=== PATIENT | male | born 1970 | race African-American/Black ===

== ENCOUNTER 2018-10-17 06:05 | Inpatient (IN) | payer MEDICAID ==
[2018-10-17] VITALS (56 sets, daily range): BP systolic 80–187; BP diastolic 43–103
[~2018-10-17] VITALS: Ht 167.6 cm; Wt 98.4 kg
[2018-10-17] MEDS ORDERED: SODIUM CHLORIDE 0.9% 1000ML BAG (SEPSIS BOLUS) IV ONE (06:30)
[2018-10-17 07:18] LABS: BASOPHILS % 0.5 % (0.0-2.0); EOSINOPHILS % 0.4 % (0.0-5.0); HEMATOCRIT. 23.1 % (42.0-52.0); HEMOGLOBIN. 7.9 g/dL (14.0-18.0); LYMPHOCYTES % 18.6 % (20.0-50.0); MEAN CORPUSCULAR HEMOGLOBIN 34.3 pg (28.0-32.0); MEAN CORPUSCULAR VOLUME 100.6 fL (80.0-94.0); MEAN PLATELET VOLUME 9.6 fl (7.4-10.4); MONOCYTES % 11.1 % (2.0-8.0); NEUTROPHILS % 69.4 % (40.0-76.0); PLATELET 89 x1000/uL (130-400); RED CELL DISTRIBUTION WIDTH 15.7 % (11.6-14.6)
[2018-10-17 07:23] LABS: CHLORIDE 115 mEq/L (98-107)
[2018-10-17 07:26] LABS: INR 1.6; PROTHROMBIN TIME 16.1 sec (9.6-11.0)
[2018-10-17 07:27] LABS: ETHANOL BLOOD < 10 mg/dL
[2018-10-17] MEDS ORDERED: LACTULOSE 20G/30ML UDC PO ONE (08:00)
[2018-10-17] MEDS ORDERED: OCTREOTIDE ACETATE 50 MCG/ML 1ML IV STA (08:40)
[2018-10-17] MEDS ORDERED: SODIUM CHLORIDE 0.9% 10ML VIAL ONE (09:00)
[2018-10-17] MEDS ORDERED: ETOMIDATE 2MG/ML 10ML VIAL IV ONE (09:00)
[2018-10-17] MEDS ORDERED: VECURONIUM BROMIDE 10 MG/VIAL IV ONE (09:00)
[2018-10-17 09:38] LABS: CLARITY URINE CLEAR (CLEAR); COLOR URINE YELLOW (YELLOW); KETONES URINE TRACE (NEGATIVE); LEUKOCYTE ESTERASE URINE NEGATIVE (NEGATIVE); NITRITE URINE NEGATIVE (NEGATIVE); OCCULT BLOOD URINE NEGATIVE (NEGATIVE); PROTEIN URINE NEGATIVE (NEGATIVE); SPECIFIC GRAVITY URINE 1.023 (1.005-1.030)
[2018-10-17] MEDS ORDERED: OCTREOTIDE 50 MCG in SODIUM CHLORIDE 0.9% 100 ML IV STA (09:53)
[2018-10-17] MEDS ORDERED: MORPHINE SULFATE 2 MG/ML CPJ (NOT FOR IM USE) IV PRN (11:30)
[2018-10-17] MEDS ORDERED: ONDANSETRON HCL 4MG/2ML INJ IV PRN (11:30)
[2018-10-17 11:36] LABS: BG BASE EXCESS -7.6 mmol/L (-2.0-2.0); BG CARBOXYHEMOGLOBIN 0.2 % (0.5-1.5); BG DEOXYHEMOGLOBIN 0.6 % (0.0-5.0); BG FRACTION INSPIRED OXYGEN 100; BG HCO3 ACT 17.8 mmol/L (22.0-26.0); BG METHEMOGLOBIN 0.2 % (0.0-1.5); BG OXYGEN SATURATION 99.4 % (92.0-98.5); BG PCO2 35.4 mmHg (35.0-45.0); BG PH 7.319 (7.350-7.450); BG PO2 315.8 mmHg (75.0-100.0); BG SAMPLE SITE RIGHT RADIAL; BG TIDAL VOLUME(mL) 500 mL; BG TOTAL HEMOGLOBIN 8.8 g/dL (12.0-18.0); BG VENT MODE VENT - A/C; BG VENT RATE 18 set
[2018-10-17] MEDS: MIDAZOLAM HCL 50 MG in DEXTROSE 5% WATER 40 ML IV PRN ×3 (11:40→20:57)
[2018-10-17] MEDS: FENTANYL CITRATE/PF 500 MCG in SODIUM CHLORIDE 0.9% 40 ML IV PRN ×2 (11:41→15:36)
[2018-10-17] MEDS: OCTREOTIDE 1000MCG in SODIUM CHLORIDE 0.9% 100ML IV PRN ×2 (11:41→12:33)
[2018-10-17] MEDS ORDERED: DIPHENHYDRAMINE 50MG/ML VIAL ONE (11:45)
[2018-10-17] MEDS ORDERED: MIDAZOLAM HCL 5 MG/5 ML VIAL ONE (11:46)
[2018-10-17] MEDS ORDERED: FENTANYL CITRATE/PF 50MCG/ML 2ML VIAL ONE (11:46)
[2018-10-17] MEDS ORDERED: LIDOCAINE HCL 1% 20ML VIAL (Pyxis) INJ ONE (12:42)
[2018-10-17 13:39] LABS: BASOPHILS % 0.4 % (0.0-2.0); EOSINOPHILS % 0.4 % (0.0-5.0); LYMPHOCYTES % 20.6 % (20.0-50.0); MEAN CORPUSCULAR VOLUME 100.8 fL (80.0-94.0); MEAN PLATELET VOLUME 10.1 fl (7.4-10.4); NEUTROPHILS % 67.6 % (40.0-76.0); PLATELET 99 x1000/uL (130-400); RED BLOOD CELL COUNT 1.91 mill/uL (4.7-6.1)
[2018-10-17 13:39] LABS: *BARBITURATES SCREEN URINE NEGATIVE (NEGATIVE); *BENZODIAZEPINES SCREEN URINE NEGATIVE (NEGATIVE); *COCAINE SCREEN URINE NEGATIVE (NEGATIVE)
[2018-10-17 13:40] LABS: *AMPHETAMINES SCREEN URINE NEGATIVE (NEGATIVE); CANNABINOID URINE SCREEN NEGATIVE (NEGATIVE); METHADONE URINE SCREEN NEGATIVE (NEGATIVE); OPIATES URINE SCREEN NEGATIVE (NEGATIVE); PHENCYCLIDINE URINE SCREEN NEGATIVE (NEGATIVE)
[2018-10-17 13:50] LABS: HEMATOCRIT. 19.3 % (42.0-52.0); HEMOGLOBIN. 6.5 g/dL (14.0-18.0)
[2018-10-17] MEDS: CEFEPIME 1,000 MG in DEXTROSE 5% WATER 50 ML IV SCH ×2 (16:09→23:22)
[2018-10-17] MEDS: PANTOPRAZOLE SODIUM 40 MG/VIAL IV SCH ×2 (16:09→20:46)
[2018-10-17] MEDS: DEXT 5%/0.45% NACL 1000ML 1,000 ML IV SCH (16:10)
[2018-10-17] MEDS: METRONIDAZOLE 500 MG PREMIX 100 ML IV SCH ×2 (17:41→19:57)
[2018-10-17 23:04] LABS: HEMATOCRIT 33.5 % (42.0-52.0); HEMOGLOBIN 11.5 g/dL (14.0-18.0)
[2018-10-18] VITALS (60 sets, daily range): BP systolic 93–137; BP diastolic 56–79
[2018-10-18] MEDS: DEXT 5%/0.45% NACL 1000ML 1,000 ML IV SCH ×2 (00:42→14:30)
[2018-10-18] MEDS: OCTREOTIDE 1,000 MCG in SODIUM CHLORIDE 0.9% 98 ML IV SCH (02:01)
[2018-10-18] MEDS: FENTANYL CITRATE/PF 500 MCG in SODIUM CHLORIDE 0.9% 40 ML IV PRN (02:03)
[2018-10-18] MEDS: METRONIDAZOLE 500 MG PREMIX 100 ML IV SCH ×3 (04:11→20:20)
[2018-10-18 05:49] LABS: HEMATOCRIT 31.7 % (42.0-52.0); HEMOGLOBIN 11.1 g/dL (14.0-18.0)
[2018-10-18 05:59] LABS: CHLORIDE 121 mEq/L (98-107)
[2018-10-18 08:26] LABS: BG BASE EXCESS -7.3 mmol/L (-2.0-2.0); BG FRACTION INSPIRED OXYGEN 40; BG HCO3 ACT 16.8 mmol/L (22.0-26.0); BG METHEMOGLOBIN 0.2 % (0.0-1.5); BG OXYHEMOGLOBIN 95.8 % (94.0-97.0); BG PCO2 29.2 mmHg (35.0-45.0); BG PH 7.377 (7.350-7.450); BG PO2 88.9 mmHg (75.0-100.0); BG SAMPLE SITE RIGHT BRACHIAL; BG TIDAL VOLUME(mL) 500 mL; BG TOTAL HEMOGLOBIN 10.8 g/dL (12.0-18.0); BG VENT MODE VENT - A/C; BG VENT RATE 20 set
[2018-10-18] MEDS: MIDAZOLAM HCL 50 MG in DEXTROSE 5% WATER 40 ML IV PRN (08:52)
[2018-10-18] MEDS: PANTOPRAZOLE SODIUM 40 MG/VIAL IV SCH ×2 (08:52→21:14)
[2018-10-18] MEDS: LACTULOSE 300 ML in WATER FOR IRRIGATION,STERILE 700 ML IR SCH (10:31)
[2018-10-18] MEDS: CEFEPIME 1,000 MG in DEXTROSE 5% WATER 50 ML IV SCH (11:42)
[2018-10-18] MEDS: THIAMINE HCL 100 MG in SODIUM CHLORIDE 0.9% 50 ML IV SCH (12:22)
[2018-10-18 23:02] LABS: HEMATOCRIT 27.9 % (42.0-52.0); HEMOGLOBIN 9.9 g/dL (14.0-18.0)
[2018-10-19] VITALS (87 sets, daily range): BP systolic 113–160; BP diastolic 49–91
[2018-10-19] MEDS: CEFEPIME 1,000 MG in DEXTROSE 5% WATER 50 ML IV SCH ×3 (00:04→23:06)
[2018-10-19] MEDS: OCTREOTIDE 1,000 MCG in SODIUM CHLORIDE 0.9% 98 ML IV SCH ×2 (01:11→20:56)
[2018-10-19] MEDS: METRONIDAZOLE 500 MG PREMIX 100 ML IV SCH ×3 (03:56→20:55)
[2018-10-19 05:04] LABS: HEMOGLOBIN 9.6 g/dL (14.0-18.0)
[2018-10-19 05:06] LABS: CHLORIDE 121 mEq/L (98-107)
[2018-10-19 08:20] LABS: BG BASE EXCESS -5.1 mmol/L (-2.0-2.0); BG CARBOXYHEMOGLOBIN 0.3 % (0.5-1.5); BG DEOXYHEMOGLOBIN 3.2 % (0.0-5.0); BG FRACTION INSPIRED OXYGEN 40; BG HCO3 ACT 18.7 mmol/L (22.0-26.0); BG METHEMOGLOBIN 0.3 % (0.0-1.5); BG OXYGEN SATURATION 96.8 % (92.0-98.5); BG OXYHEMOGLOBIN 96.2 % (94.0-97.0); BG PCO2 30.1 mmHg (35.0-45.0); BG PO2 94.9 mmHg (75.0-100.0); BG SAMPLE SITE LEFT RADIAL; BG TIDAL VOLUME(mL) 500 mL; BG TOTAL HEMOGLOBIN 9.8 g/dL (12.0-18.0); BG VENT MODE VENT - A/C; BG VENT RATE 20 set
[2018-10-19] MEDS: THIAMINE HCL 100 MG in SODIUM CHLORIDE 0.9% 50 ML IV SCH (09:07)
[2018-10-19] MEDS: PANTOPRAZOLE SODIUM 40 MG/VIAL IV SCH ×2 (09:07→20:57)
[2018-10-19] MEDS: LACTULOSE 300 ML in WATER FOR IRRIGATION,STERILE 700 ML IR SCH (10:29)
[2018-10-19] MEDS ORDERED: IPRATROPIUM/ALBUTEROL 0.5-3(2.5)MG/3ML NEB HHN PRN (11:15)
[2018-10-19] MEDS ORDERED: HYDRALAZINE 20MG/ML VIAL IV PRN (11:30)
[2018-10-19] MEDS: DEXT 5%/0.45% NACL 1000ML 1,000 ML IV SCH ×2 (11:36→16:42)
[2018-10-19] MEDS: IPRATROPIUM/ALBUTEROL 0.5-3(2.5)MG/3ML NEB HHN SCH ×2 (13:34→20:57)
[2018-10-19] MEDS: FENTANYL CITRATE/PF 500 MCG in SODIUM CHLORIDE 0.9% 40 ML IV PRN (15:02)
[2018-10-20] VITALS (98 sets, daily range): BP systolic 105–159; BP diastolic 49–91
[2018-10-20] MEDS: DEXT 5%/0.45% NACL 1000ML 1,000 ML IV SCH ×2 (01:17→18:09)
[2018-10-20] MEDS: IPRATROPIUM/ALBUTEROL 0.5-3(2.5)MG/3ML NEB HHN SCH ×4 (01:35→20:30)
[2018-10-20] MEDS: METRONIDAZOLE 500 MG PREMIX 100 ML IV SCH ×3 (03:05→20:13)
[2018-10-20 04:49] LABS: HEMATOCRIT 28.4 % (42.0-52.0); HEMOGLOBIN 9.7 g/dL (14.0-18.0)
[2018-10-20 04:50] LABS: CHLORIDE 125 mEq/L (98-107)
[2018-10-20 08:08] LABS: BG CARBOXYHEMOGLOBIN 0.5 % (0.5-1.5); BG DEOXYHEMOGLOBIN 2.9 % (0.0-5.0); BG FRACTION INSPIRED OXYGEN 40; BG HCO3 ACT 17.7 mmol/L (22.0-26.0); BG METHEMOGLOBIN 0.2 % (0.0-1.5); BG OXYGEN SATURATION 97.1 % (92.0-98.5); BG OXYHEMOGLOBIN 96.4 % (94.0-97.0); BG PH 7.347 (7.350-7.450); BG SAMPLE SITE RIGHT RADIAL; BG TIDAL VOLUME(mL) 500 mL; BG TOTAL HEMOGLOBIN 11.6 g/dL (12.0-18.0); BG VENT MODE VENT - A/C; BG VENT RATE 20 set
[2018-10-20] MEDS ORDERED: LACTULOSE 20G/30ML UDC ONE (08:23)
[2018-10-20] MEDS: THIAMINE HCL 100 MG in SODIUM CHLORIDE 0.9% 50 ML IV SCH (08:38)
[2018-10-20] MEDS: PANTOPRAZOLE SODIUM 40 MG/VIAL IV SCH ×2 (08:38→21:22)
[2018-10-20] MEDS: LACTULOSE 300 ML in WATER FOR IRRIGATION,STERILE 700 ML IR SCH (08:38)
[2018-10-20] MEDS: FENTANYL CITRATE/PF 500 MCG in SODIUM CHLORIDE 0.9% 40 ML IV PRN ×2 (09:26→20:50)
[2018-10-20] MEDS: MIDAZOLAM HCL 50 MG in DEXTROSE 5% WATER 40 ML IV PRN ×2 (09:27→20:50)
[2018-10-20] MEDS: CEFEPIME 1,000 MG in DEXTROSE 5% WATER 50 ML IV SCH ×2 (11:30→22:58)
[2018-10-20 11:41] LABS: HEMOGLOBIN 10.9 g/dL (14.0-18.0)
[2018-10-20] MEDS: OCTREOTIDE 1,000 MCG in SODIUM CHLORIDE 0.9% 98 ML IV SCH (15:00)
[2018-10-20 17:24] LABS: HEMOGLOBIN 9.9 g/dL (14.0-18.0)
[2018-10-21] VITALS (84 sets, daily range): BP systolic 103–142; BP diastolic 51–80
[2018-10-21] MEDS: IPRATROPIUM/ALBUTEROL 0.5-3(2.5)MG/3ML NEB HHN SCH ×4 (01:25→20:06)
[2018-10-21] MEDS: METRONIDAZOLE 500 MG PREMIX 100 ML IV SCH ×3 (04:05→20:50)
[2018-10-21 05:02] LABS: HEMATOCRIT. 27.2 % (42.0-52.0); HEMOGLOBIN. 9.3 g/dL (14.0-18.0); MEAN CORPUSCULAR HEMOGLOBIN 33.2 pg (28.0-32.0); MEAN CORPUSCULAR VOLUME 96.6 fL (80.0-94.0); MEAN PLATELET VOLUME 9.1 fl (7.4-10.4); PLATELET 85 x1000/uL (130-400); RED BLOOD CELL COUNT 2.81 mill/uL (4.7-6.1); RED CELL DISTRIBUTION WIDTH 19.2 % (11.6-14.6)
[2018-10-21 05:07] LABS: CHLORIDE 125 mEq/L (98-107)
[2018-10-21 08:08] LABS: NUCLEATED RED BLOOD CELLS 1 /100 WBC; PLATELET ESTIMATE DECREASED
[2018-10-21 08:10] LABS: BG CARBOXYHEMOGLOBIN 0.2 % (0.5-1.5); BG DEOXYHEMOGLOBIN 3.5 % (0.0-5.0); BG FRACTION INSPIRED OXYGEN 40; BG HCO3 ACT 18.5 mmol/L (22.0-26.0); BG METHEMOGLOBIN 1.7 % (0.0-1.5); BG OXYGEN SATURATION 96.4 % (92.0-98.5); BG OXYHEMOGLOBIN 94.6 % (94.0-97.0); BG PCO2 36.9 mmHg (35.0-45.0); BG PH 7.317 (7.350-7.450); BG PO2 102.3 mmHg (75.0-100.0); BG SAMPLE SITE RIGHT RADIAL; BG TIDAL VOLUME(mL) 500 mL; BG TOTAL HEMOGLOBIN 9.8 g/dL (12.0-18.0); BG VENT MODE VENT - A/C; BG VENT RATE 20 set
[2018-10-21 09:10] LABS: HEMATOCRIT 28.9 % (42.0-52.0); HEMOGLOBIN 9.8 g/dL (14.0-18.0)
[2018-10-21] MEDS: DEXT 5%/0.45% NACL 1000ML 1,000 ML IV SCH ×2 (09:42→22:47)
[2018-10-21] MEDS: PANTOPRAZOLE SODIUM 40 MG/VIAL IV SCH ×2 (09:42→20:50)
[2018-10-21] MEDS: LACTULOSE 300 ML in WATER FOR IRRIGATION,STERILE 700 ML IR SCH (09:43)
[2018-10-21] MEDS: OCTREOTIDE 1,000 MCG in SODIUM CHLORIDE 0.9% 98 ML IV SCH (11:20)
[2018-10-21] MEDS: CEFEPIME 1,000 MG in DEXTROSE 5% WATER 50 ML IV SCH ×2 (11:20→22:45)
[2018-10-21] MEDS ORDERED: LACTULOSE 300 ML in WATER FOR IRRIGATION,STERILE 700 ML IR SCH (13:00)
[2018-10-21] MEDS ORDERED: POTASSIUM CHLORIDE INJ 40 MEQ in DEXT 5% WATER 250 ML IV SCH (13:00)
[2018-10-21] MEDS: LACTULOSE 20G/30ML UDC PO SCH (20:50)
[2018-10-22] VITALS (92 sets, daily range): BP systolic 104–157; BP diastolic 56–91
[2018-10-22] MEDS: LACTULOSE 20G/30ML UDC PO SCH ×4 (00:28→17:00)
[2018-10-22] MEDS: SUCRALFATE 1 G/10 ML UDC PO SCH ×4 (00:28→17:00)
[2018-10-22] MEDS: METOCLOPRAMIDE HCL 10MG/2ML VIAL IV SCH ×4 (00:28→17:00)
[2018-10-22] MEDS: IPRATROPIUM/ALBUTEROL 0.5-3(2.5)MG/3ML NEB HHN SCH ×4 (02:10→20:59)
[2018-10-22] MEDS: METRONIDAZOLE 500 MG PREMIX 100 ML IV SCH ×3 (04:22→20:10)
[2018-10-22 05:40] LABS: HEMATOCRIT. 29.2 % (42.0-52.0); HEMOGLOBIN. 9.8 g/dL (14.0-18.0); MEAN CORPUSCULAR HEMOGLOBIN 32.9 pg (28.0-32.0); MEAN CORPUSCULAR VOLUME 98.3 fL (80.0-94.0); MEAN PLATELET VOLUME 9.1 fl (7.4-10.4); PLATELET 89 x1000/uL (130-400); RED BLOOD CELL COUNT 2.97 mill/uL (4.7-6.1)
[2018-10-22 06:02] LABS: CHLORIDE 127 mEq/L (98-107)
[2018-10-22 06:11] LABS: INR 1.7; PROTHROMBIN TIME 16.6 sec (9.6-11.0)
[2018-10-22 06:33] LABS: VITAMIN B12 SERUM > 2000.0 pg/mL (211-911)
[2018-10-22 07:42] LABS: FERRITIN 65 ng/mL (22-322)
[2018-10-22] MEDS: PANTOPRAZOLE SODIUM 40 MG/VIAL IV SCH (09:05)
[2018-10-22] MEDS: THIAMINE HCL 100MG TABLET PO SCH (09:05)
[2018-10-22] MEDS: OCTREOTIDE 1,000 MCG in SODIUM CHLORIDE 0.9% 98 ML IV SCH (09:05)
[2018-10-22] MEDS: MULTIVITAMINS,THER W-MINERALS TABLET PO SCH (09:05)
[2018-10-22 10:02] LABS: BG BASE EXCESS -5.4 mmol/L (-2.0-2.0); BG CARBOXYHEMOGLOBIN 0.3 % (0.5-1.5); BG DEOXYHEMOGLOBIN 1.8 % (0.0-5.0); BG FRACTION INSPIRED OXYGEN 40; BG HCO3 ACT 19.3 mmol/L (22.0-26.0); BG METHEMOGLOBIN 0.3 % (0.0-1.5); BG OXYGEN SATURATION 98.2 % (92.0-98.5); BG OXYHEMOGLOBIN 97.6 % (94.0-97.0); BG PCO2 34.6 mmHg (35.0-45.0); BG PH 7.365 (7.350-7.450); BG PO2 131.6 mmHg (75.0-100.0); BG PRESSURE SUPPORT 8; BG SAMPLE SITE RIGHT RADIAL; BG TOTAL HEMOGLOBIN 10.2 g/dL (12.0-18.0); BG VENT MODE VENT - CPAP
[2018-10-22] MEDS ORDERED: POTASSIUM CHLORIDE INJ 40 MEQ in DEXT 5% WATER 250 ML IV SCH (12:00)
[2018-10-22] MEDS: CEFEPIME 1,000 MG in DEXTROSE 5% WATER 50 ML IV SCH ×2 (12:23→23:03)
[2018-10-22] MEDS: DEXT 5%/0.45% NACL 1000ML 1,000 ML IV SCH (12:24)
[2018-10-22 13:43] LABS: NUCLEATED RED BLOOD CELLS 1 /100 WBC; PLATELET ESTIMATE DECREASED
[2018-10-22] MEDS: RACEPINEPHRINE 2.25% 0.5ML NEB VIAL HHN PRN ×2 (14:24→17:55)
[2018-10-22] MEDS: PROPRANOLOL HCL 10MG TABLET NG SCH ×2 (15:35→18:50)
[2018-10-22 16:08] LABS: HEMATOCRIT 28.2 % (42.0-52.0); HEMOGLOBIN 9.5 g/dL (14.0-18.0)
[2018-10-23] VITALS (81 sets, daily range): BP systolic 98–145; BP diastolic 49–83
[2018-10-23] MEDS: DEXT 5%/0.45% NACL 1000ML 1,000 ML IV SCH (02:02)
[2018-10-23] MEDS: IPRATROPIUM/ALBUTEROL 0.5-3(2.5)MG/3ML NEB HHN SCH ×4 (02:26→20:23)
[2018-10-23] MEDS: METRONIDAZOLE 500 MG PREMIX 100 ML IV SCH ×3 (03:06→20:51)
[2018-10-23] MEDS: METOCLOPRAMIDE HCL 10MG/2ML VIAL IV SCH ×4 (06:30→17:07)
[2018-10-23] MEDS: SUCRALFATE 1 G/10 ML UDC PO SCH ×4 (06:30→17:07)
[2018-10-23] MEDS: PROPRANOLOL HCL 10MG TABLET NG SCH ×4 (06:30→19:16)
[2018-10-23] MEDS: LANSOPRAZOLE 30MG DR CAPSULE NG SCH (06:30)
[2018-10-23] MEDS ORDERED: OMEPRAZOLE 20MG CAPSULE EXTENDED RELEASE PO SCH (06:30)
[2018-10-23] MEDS: LACTULOSE 20G/30ML UDC PO SCH ×5 (06:31→17:07)
[2018-10-23 06:34] LABS: CHLORIDE 126 mEq/L (98-107)
[2018-10-23] MEDS: MULTIVITAMINS,THER W-MINERALS TABLET PO SCH (08:36)
[2018-10-23] MEDS: THIAMINE HCL 100MG TABLET PO SCH (08:36)
[2018-10-23 09:06] LABS: FOLATE HEMATOCRIT 28.9 % (37.5-51.0)
[2018-10-23] MEDS ORDERED: MAGNESIUM 2 G PREMIX 50 ML IV SCH (10:00)
[2018-10-23] MEDS: CEFEPIME 1,000 MG in DEXTROSE 5% WATER 50 ML IV SCH (11:23)
[2018-10-23] MEDS: DEXTROSE 5% WATER 1,000 ML IV SCH (14:52)
[2018-10-23 20:41] LABS: HEMATOCRIT 31.6 % (42.0-52.0)
[2018-10-23] MEDS: RIFAXIMIN 550 MG TABLET PO SCH (20:52)
[2018-10-24] VITALS (51 sets, daily range): BP systolic 81–131; BP diastolic 46–75
[2018-10-24] MEDS: SUCRALFATE 1 G/10 ML UDC PO SCH ×4 (00:02→17:25)
[2018-10-24] MEDS: CEFEPIME 1,000 MG in DEXTROSE 5% WATER 50 ML IV SCH ×3 (00:02→22:44)
[2018-10-24] MEDS: PROPRANOLOL HCL 10MG TABLET NG SCH ×4 (00:03→17:11)
[2018-10-24] MEDS: LACTULOSE 20G/30ML UDC PO SCH ×4 (00:03→17:25)
[2018-10-24] MEDS: METOCLOPRAMIDE HCL 10MG/2ML VIAL IV SCH ×4 (00:03→17:25)
[2018-10-24] MEDS: IPRATROPIUM/ALBUTEROL 0.5-3(2.5)MG/3ML NEB HHN SCH ×4 (02:14→21:05)
[2018-10-24 05:36] LABS: HEMATOCRIT. 30.3 % (42.0-52.0); HEMOGLOBIN. 10.2 g/dL (14.0-18.0); MEAN CORPUSCULAR HEMOGLOBIN 32.5 pg (28.0-32.0); MEAN CORPUSCULAR VOLUME 96.5 fL (80.0-94.0); MEAN PLATELET VOLUME 8.7 fl (7.4-10.4); PLATELET 114 x1000/uL (130-400); RED BLOOD CELL COUNT 3.15 mill/uL (4.7-6.1); RED CELL DISTRIBUTION WIDTH 21.2 % (11.6-14.6)
[2018-10-24 05:38] LABS: CHLORIDE 123 mEq/L (98-107)
[2018-10-24] MEDS: METRONIDAZOLE 500 MG PREMIX 100 ML IV SCH ×3 (05:48→20:00)
[2018-10-24] MEDS: LANSOPRAZOLE 30MG DR CAPSULE NG SCH (05:49)
[2018-10-24] MEDS: DEXTROSE 5% WATER 1,000 ML IV SCH ×2 (06:40→17:25)
[2018-10-24] MEDS: MULTIVITAMINS,THER W-MINERALS TABLET PO SCH (08:35)
[2018-10-24] MEDS: THIAMINE HCL 100MG TABLET PO SCH (08:35)
[2018-10-24] MEDS: RIFAXIMIN 550 MG TABLET PO SCH ×2 (08:35→21:29)
[2018-10-24 08:52] LABS: ATYPICAL LYMPHOCYTES 1
[2018-10-24 08:53] LABS: PLATELET ESTIMATE SLIGHTLY DECREASED
[2018-10-24] MEDS ORDERED: FUROSEMIDE 20MG/2ML VIAL IVP NR (09:15)
[2018-10-24] MEDS ORDERED: POTASSIUM CHLORIDE 20MEQ/PACKET PO SCH (09:30)
[2018-10-24] MEDS: TAMSULOSIN HCL 0.4MG SR CAPSULE PO SCH (10:47)
[2018-10-24] MEDS ORDERED: LORAZEPAM 2MG/ML CPJ IV PRN (13:45)
[2018-10-24 14:18] LABS: FOLATE HEMOLYSATE 443.7 ng/mL (Not Estab.); FOLATE RBC 1535 ng/mL (>498)
[2018-10-25] VITALS (14 sets, daily range): BP systolic 93–133; BP diastolic 45–68
[2018-10-25] MEDS: SUCRALFATE 1 G/10 ML UDC PO SCH ×4 (00:39→17:59)
[2018-10-25] MEDS: LACTULOSE 20G/30ML UDC PO SCH ×4 (00:39→18:00)
[2018-10-25] MEDS: METOCLOPRAMIDE HCL 10MG/2ML VIAL IV SCH ×4 (00:40→17:59)
[2018-10-25] MEDS: IPRATROPIUM/ALBUTEROL 0.5-3(2.5)MG/3ML NEB HHN SCH ×4 (01:12→21:54)
[2018-10-25] MEDS: METRONIDAZOLE 500 MG PREMIX 100 ML IV SCH ×3 (03:09→19:40)
[2018-10-25] MEDS: PROPRANOLOL HCL 10MG TABLET NG SCH ×4 (05:00→18:00)
[2018-10-25] MEDS: LANSOPRAZOLE 30MG DR CAPSULE NG SCH (05:53)
[2018-10-25] MEDS: DEXTROSE 5% WATER 1,000 ML IV SCH (05:54)
[2018-10-25 08:17] LABS: CHLORIDE 120 mEq/L (98-107)
[2018-10-25 08:19] LABS: HEMATOCRIT. 27.2 % (42.0-52.0); HEMOGLOBIN. 9.1 g/dL (14.0-18.0); MEAN CORPUSCULAR HEMOGLOBIN 32.6 pg (28.0-32.0); MEAN CORPUSCULAR VOLUME 97.8 fL (80.0-94.0); MEAN PLATELET VOLUME 9.3 fl (7.4-10.4); PLATELET 95 x1000/uL (130-400); RED BLOOD CELL COUNT 2.78 mill/uL (4.7-6.1); RED CELL DISTRIBUTION WIDTH 20.2 % (11.6-14.6)
[2018-10-25] MEDS: RIFAXIMIN 550 MG TABLET PO SCH ×2 (09:27→20:50)
[2018-10-25] MEDS: MULTIVITAMINS,THER W-MINERALS TABLET PO SCH (09:27)
[2018-10-25] MEDS: THIAMINE HCL 100MG TABLET PO SCH (09:28)
[2018-10-25 10:59] LABS: NUCLEATED RED BLOOD CELLS 1 /100 WBC; PLATELET ESTIMATE DECREASED
[2018-10-25] MEDS: CEFEPIME 1,000 MG in DEXTROSE 5% WATER 50 ML IV SCH ×2 (11:18→22:20)
[2018-10-25] MEDS: TAMSULOSIN HCL 0.4MG SR CAPSULE PO SCH (22:20)
[2018-10-26] VITALS (12 sets, daily range): BP systolic 87–127; BP diastolic 50–81
[2018-10-26] MEDS: SUCRALFATE 1 G/10 ML UDC PO SCH ×4 (00:35→18:47)
[2018-10-26] MEDS: METOCLOPRAMIDE HCL 10MG/2ML VIAL IV SCH ×4 (00:36→18:17)
[2018-10-26] MEDS: LACTULOSE 20G/30ML UDC PO SCH ×4 (00:46→18:48)
[2018-10-26] MEDS: IPRATROPIUM/ALBUTEROL 0.5-3(2.5)MG/3ML NEB HHN SCH ×4 (02:42→20:51)
[2018-10-26] MEDS: METRONIDAZOLE 500 MG PREMIX 100 ML IV SCH ×3 (04:09→20:56)
[2018-10-26] MEDS: PROPRANOLOL HCL 10MG TABLET NG SCH ×4 (05:39→18:47)
[2018-10-26] MEDS: LANSOPRAZOLE 30MG DR CAPSULE NG SCH (06:17)
[2018-10-26] MEDS: RIFAXIMIN 550 MG TABLET PO SCH ×2 (09:01→20:56)
[2018-10-26] MEDS: MULTIVITAMINS,THER W-MINERALS TABLET PO SCH (09:01)
[2018-10-26] MEDS: THIAMINE HCL 100MG TABLET PO SCH (09:02)
[2018-10-26 10:04] LABS: HEMATOCRIT. 26.1 % (42.0-52.0); HEMOGLOBIN. 8.8 g/dL (14.0-18.0); MEAN CORPUSCULAR HEMOGLOBIN 32.2 pg (28.0-32.0); MEAN PLATELET VOLUME 9.6 fl (7.4-10.4); PLATELET 87 x1000/uL (130-400); RED BLOOD CELL COUNT 2.72 mill/uL (4.7-6.1); RED CELL DISTRIBUTION WIDTH 19.6 % (11.6-14.6)
[2018-10-26 10:11] LABS: CHLORIDE 111 mEq/L (98-107)
[2018-10-26] MEDS: POTASSIUM CHLORIDE 20MEQ TABLET SR PO SCH (11:09)
[2018-10-26] MEDS: CEFEPIME 1,000 MG in DEXTROSE 5% WATER 50 ML IV SCH (11:13)
[2018-10-26 14:05] LABS: PLATELET ESTIMATE DECREASED
[2018-10-26 17:58] LABS: HEMOGLOBIN 8.8 g/dL (14.0-18.0)
[2018-10-26 18:06] LABS: INR 1.9; PARTIAL THROMBOPLASTIN TIME 42.5 sec (23.4-31.0); PROTHROMBIN TIME 18.9 sec (9.6-11.0)
[2018-10-26] MEDS: TAMSULOSIN HCL 0.4MG SR CAPSULE PO SCH (20:58)
[2018-10-26 22:51] LABS: FOLIC ACID (FOLATE) SERUM 11.7 ng/mL (>5.38)
[2018-10-27] VITALS (12 sets, daily range): BP systolic 93–122; BP diastolic 54–75
[2018-10-27] MEDS: CEFEPIME 1,000 MG in DEXTROSE 5% WATER 50 ML IV SCH ×2 (00:13→12:05)
[2018-10-27] MEDS: METOCLOPRAMIDE HCL 10MG/2ML VIAL IV SCH ×4 (00:13→17:48)
[2018-10-27] MEDS: SUCRALFATE 1 G/10 ML UDC PO SCH ×4 (00:13→17:48)
[2018-10-27] MEDS: PROPRANOLOL HCL 10MG TABLET NG SCH ×4 (00:15→17:48)
[2018-10-27] MEDS: LACTULOSE 20G/30ML UDC PO SCH ×3 (00:35→12:00)
[2018-10-27] MEDS: IPRATROPIUM/ALBUTEROL 0.5-3(2.5)MG/3ML NEB HHN SCH ×4 (02:39→21:09)
[2018-10-27] MEDS: METRONIDAZOLE 500 MG PREMIX 100 ML IV SCH ×3 (04:29→20:54)
[2018-10-27 05:53] LABS: CHLORIDE 109 mEq/L (98-107)
[2018-10-27] MEDS: LANSOPRAZOLE 30MG DR CAPSULE NG SCH (06:17)
[2018-10-27 06:38] LABS: HEMATOCRIT. 27.1 % (42.0-52.0); HEMOGLOBIN. 9.3 g/dL (14.0-18.0); MEAN CORPUSCULAR HEMOGLOBIN 33.4 pg (28.0-32.0); MEAN CORPUSCULAR VOLUME 97.4 fL (80.0-94.0); MEAN PLATELET VOLUME 9.5 fl (7.4-10.4); PLATELET 89 x1000/uL (130-400); RED BLOOD CELL COUNT 2.78 mill/uL (4.7-6.1); RED CELL DISTRIBUTION WIDTH 19.3 % (11.6-14.6)
[2018-10-27] MEDS ORDERED: POTASSIUM CHLORIDE 20MEQ TABLET SR PO SCH (07:15)
[2018-10-27] MEDS ORDERED: LIDOCAINE HCL 1% 20ML VIAL (Pyxis) INJ ONE (08:26)
[2018-10-27] MEDS ORDERED: SODIUM BICARBONATE 4% (2.4MEQ) 5ML VIAL IV ONE (08:26)
[2018-10-27] MEDS ORDERED: FUROSEMIDE 20MG/2ML VIAL IVP SCH (09:00)
[2018-10-27] MEDS: MAGNESIUM OXIDE 400MG TABLET PO SCH (10:28)
[2018-10-27] MEDS: POTASSIUM CHLORIDE 20MEQ TABLET SR PO SCH (10:28)
[2018-10-27] MEDS: THIAMINE HCL 100MG TABLET PO SCH (10:28)
[2018-10-27] MEDS: MULTIVITAMINS,THER W-MINERALS TABLET PO SCH (10:28)
[2018-10-27] MEDS: RIFAXIMIN 550 MG TABLET PO SCH ×2 (10:28→21:28)
[2018-10-27 12:55] LABS: PLATELET ESTIMATE DECREASED
[2018-10-27] MEDS ORDERED: PHYTONADIONE 10MG/ML AMP SUBCUT SCH (17:15)
[2018-10-27] MEDS: TAMSULOSIN HCL 0.4MG SR CAPSULE PO SCH (21:05)
[2018-10-28] VITALS (10 sets, daily range): BP systolic 93–114; BP diastolic 26–67
[2018-10-28] MEDS: SUCRALFATE 1 G/10 ML UDC PO SCH ×5 (00:20→23:16)
[2018-10-28] MEDS: METOCLOPRAMIDE HCL 10MG/2ML VIAL IV SCH ×5 (00:20→23:16)
[2018-10-28] MEDS: IPRATROPIUM/ALBUTEROL 0.5-3(2.5)MG/3ML NEB HHN SCH ×4 (02:14→20:31)
[2018-10-28] MEDS: PROPRANOLOL HCL 10MG TABLET NG SCH ×5 (06:00→23:55)
[2018-10-28] MEDS: LANSOPRAZOLE 30MG DR CAPSULE NG SCH (06:03)
[2018-10-28] MEDS: MAGNESIUM OXIDE 400MG TABLET PO SCH (08:19)
[2018-10-28] MEDS: LACTULOSE 20G/30ML UDC PO SCH ×2 (08:19→18:32)
[2018-10-28] MEDS: THIAMINE HCL 100MG TABLET PO SCH (08:20)
[2018-10-28] MEDS: POTASSIUM CHLORIDE 20MEQ TABLET SR PO SCH (08:20)
[2018-10-28] MEDS: RIFAXIMIN 550 MG TABLET PO SCH ×2 (08:20→21:35)
[2018-10-28] MEDS: MULTIVITAMINS,THER W-MINERALS TABLET PO SCH (08:20)
[2018-10-28] MEDS ORDERED: PHYTONADIONE 10MG/ML AMP SUBCUT SCH (09:00)
[2018-10-28] MEDS: SPIRONOLACTONE 50MG TABLET PO SCH (10:12)
[2018-10-28] MEDS: TAMSULOSIN HCL 0.4MG SR CAPSULE PO SCH (21:35)
[2018-10-29] VITALS: BP 104/61
[2018-10-29] MEDS: IPRATROPIUM/ALBUTEROL 0.5-3(2.5)MG/3ML NEB HHN SCH ×4 (02:06→19:59)
[2018-10-29 04:00] VITALS: BP 107/56
[2018-10-29] MEDS: PROPRANOLOL HCL 10MG TABLET NG SCH ×4 (05:55→23:03)
[2018-10-29] MEDS: METOCLOPRAMIDE HCL 10MG/2ML VIAL IV SCH ×4 (05:55→23:02)
[2018-10-29] MEDS: SUCRALFATE 1 G/10 ML UDC PO SCH ×4 (05:55→23:02)
[2018-10-29] MEDS: LANSOPRAZOLE 30MG DR CAPSULE NG SCH (05:55)
[2018-10-29 08:00] VITALS: BP 111/64
[2018-10-29] MEDS: RIFAXIMIN 550 MG TABLET PO SCH ×2 (08:41→21:07)
[2018-10-29] MEDS: LACTULOSE 20G/30ML UDC PO SCH ×2 (08:41→17:57)
[2018-10-29] MEDS: POTASSIUM CHLORIDE 20MEQ TABLET SR PO SCH (08:41)
[2018-10-29] MEDS: THIAMINE HCL 100MG TABLET PO SCH (08:42)
[2018-10-29] MEDS: SPIRONOLACTONE 50MG TABLET PO SCH (08:42)
[2018-10-29] MEDS: MULTIVITAMINS,THER W-MINERALS TABLET PO SCH (08:43)
[2018-10-29] MEDS: MAGNESIUM OXIDE 400MG TABLET PO SCH (09:58)
[2018-10-29 12:00] VITALS: BP 116/63
[2018-10-29 16:00] VITALS: BP 92/50
[2018-10-29 20:00] VITALS: BP 104/61
[2018-10-29] MEDS: TAMSULOSIN HCL 0.4MG SR CAPSULE PO SCH (21:07)
[2018-10-30] VITALS: BP 111/64
[2018-10-30] MEDS: IPRATROPIUM/ALBUTEROL 0.5-3(2.5)MG/3ML NEB HHN SCH ×4 (01:10→21:50)
[2018-10-30 04:00] VITALS: BP 98/49
[2018-10-30] MEDS: METOCLOPRAMIDE HCL 10MG/2ML VIAL IV SCH ×3 (05:49→17:49)
[2018-10-30] MEDS: LANSOPRAZOLE 30MG DR CAPSULE NG SCH (05:49)
[2018-10-30] MEDS: PROPRANOLOL HCL 10MG TABLET NG SCH ×3 (05:50→17:50)
[2018-10-30] MEDS: SUCRALFATE 1 G/10 ML UDC PO SCH ×3 (05:50→17:49)
[2018-10-30 07:18] LABS: HEMATOCRIT. 25.2 % (42.0-52.0); HEMOGLOBIN. 8.6 g/dL (14.0-18.0); MEAN CORPUSCULAR VOLUME 96.7 fL (80.0-94.0); MEAN PLATELET VOLUME 9.8 fl (7.4-10.4); PLATELET 86 x1000/uL (130-400); RED BLOOD CELL COUNT 2.61 mill/uL (4.7-6.1); RED CELL DISTRIBUTION WIDTH 20.6 % (11.6-14.6)
[2018-10-30 07:34] LABS: CHLORIDE 110 mEq/L (98-107)
[2018-10-30 08:00] VITALS: BP 112/52
[2018-10-30] MEDS: RIFAXIMIN 550 MG TABLET PO SCH ×2 (09:23→21:27)
[2018-10-30] MEDS: MAGNESIUM OXIDE 400MG TABLET PO SCH (09:23)
[2018-10-30] MEDS: THIAMINE HCL 100MG TABLET PO SCH (09:23)
[2018-10-30] MEDS: MULTIVITAMINS,THER W-MINERALS TABLET PO SCH (09:24)
[2018-10-30] MEDS: SPIRONOLACTONE 50MG TABLET PO SCH (09:24)
[2018-10-30] MEDS: LACTULOSE 20G/30ML UDC PO SCH ×2 (09:41→17:49)
[2018-10-30 10:23] LABS: PLATELET ESTIMATE DECREASED
[2018-10-30 12:00] VITALS: BP 107/59
[2018-10-30 16:00] VITALS: BP 108/64
[2018-10-30] MEDS ORDERED: MAGNESIUM 2 G PREMIX 50 ML IV NR (16:00)
[2018-10-30 20:00] VITALS: BP 110/59
[2018-10-30] MEDS: TAMSULOSIN HCL 0.4MG SR CAPSULE PO SCH (21:27)
[2018-10-31] VITALS: BP 112/51
[2018-10-31] MEDS: SUCRALFATE 1 G/10 ML UDC PO SCH ×4 (00:29→17:58)
[2018-10-31] MEDS: PROPRANOLOL HCL 10MG TABLET NG SCH ×4 (00:30→17:59)
[2018-10-31] MEDS: METOCLOPRAMIDE HCL 10MG/2ML VIAL IV SCH ×4 (00:30→17:58)
[2018-10-31] MEDS: IPRATROPIUM/ALBUTEROL 0.5-3(2.5)MG/3ML NEB HHN SCH ×4 (02:21→21:53)
[2018-10-31 04:00] VITALS: BP_SYST 112; BP_SYST 97; BP_DIAS 49; BP_DIAS 51
[2018-10-31 06:14] LABS: CHLORIDE 110 mEq/L (98-107)
[2018-10-31 06:22] LABS: HEMOGLOBIN. 8.2 g/dL (14.0-18.0); MEAN CORPUSCULAR HEMOGLOBIN 32.6 pg (28.0-32.0); MEAN CORPUSCULAR VOLUME 95.6 fL (80.0-94.0); MEAN PLATELET VOLUME 9.5 fl (7.4-10.4); PLATELET 86 x1000/uL (130-400); RED BLOOD CELL COUNT 2.51 mill/uL (4.7-6.1); RED CELL DISTRIBUTION WIDTH 19.9 % (11.6-14.6)
[2018-10-31] MEDS: LANSOPRAZOLE 30MG DR CAPSULE NG SCH (06:49)
[2018-10-31 08:00] VITALS: BP 102/53
[2018-10-31] MEDS: THIAMINE HCL 100MG TABLET PO SCH (08:41)
[2018-10-31] MEDS: RIFAXIMIN 550 MG TABLET PO SCH ×2 (08:41→20:35)
[2018-10-31] MEDS: LACTULOSE 20G/30ML UDC PO SCH ×2 (08:41→17:58)
[2018-10-31] MEDS: MAGNESIUM OXIDE 400MG TABLET PO SCH (08:41)
[2018-10-31] MEDS: SPIRONOLACTONE 50MG TABLET PO SCH (08:42)
[2018-10-31] MEDS: MULTIVITAMINS,THER W-MINERALS TABLET PO SCH (08:42)
[2018-10-31 12:00] VITALS: BP 116/63
[2018-10-31 13:06] LABS: PLATELET ESTIMATE DECREASED
[2018-10-31 16:00] VITALS: BP 110/58
[2018-10-31] MEDS ORDERED: MAGNESIUM 4 G PREMIX 100 ML IV SCH (18:00)
[2018-10-31 20:00] VITALS: BP 123/54
[2018-10-31] MEDS: TAMSULOSIN HCL 0.4MG SR CAPSULE PO SCH (20:35)
[2018-11-01] VITALS: BP 109/60
[2018-11-01] MEDS: SUCRALFATE 1 G/10 ML UDC PO SCH ×3 (00:38→12:00)
[2018-11-01] MEDS: METOCLOPRAMIDE HCL 10MG/2ML VIAL IV SCH ×3 (00:38→12:00)
[2018-11-01] MEDS: IPRATROPIUM/ALBUTEROL 0.5-3(2.5)MG/3ML NEB HHN SCH ×2 (03:15→09:43)
[2018-11-01 04:00] VITALS: BP 115/61
[2018-11-01] MEDS: PROPRANOLOL HCL 10MG TABLET NG SCH ×3 (06:08→12:00)
[2018-11-01] MEDS: LANSOPRAZOLE 30MG DR CAPSULE NG SCH (06:08)
[2018-11-01 08:00] VITALS: BP 117/69
[2018-11-01] MEDS: LACTULOSE 20G/30ML UDC PO SCH (08:26)
[2018-11-01] MEDS: SPIRONOLACTONE 50MG TABLET PO SCH (08:26)
[2018-11-01] MEDS: MULTIVITAMINS,THER W-MINERALS TABLET PO SCH (08:26)
[2018-11-01] MEDS: MAGNESIUM OXIDE 400MG TABLET PO SCH (08:26)
[2018-11-01] MEDS: THIAMINE HCL 100MG TABLET PO SCH (08:26)
[2018-11-01] MEDS: RIFAXIMIN 550 MG TABLET PO SCH (08:26)
[2018-11-01 11:03] VITALS: BP 117/64
[2018-11-01 12:00] VITALS: BP 111/63
== END 2018-11-01 13:05 | disposition home or self-care (01) | DRG 720 ==
LOC: ER 06:05 → EDBEDREQSVC 08:25 → EDBEDREQ 08:25 → EDBEDREQTM 08:25 → MICUSO 08:37 → EDBEDREQ 08:39 → EDBEDREQSVC 08:39 → ENRESERV 08:39 → EDBEDREQTM 08:39 → ENRESERV 08:40 → 3WST 10-24 12:30 → 5WST 10-28 14:56
PROVIDERS: ADMIT Hospitalist; ATTEND Hospitalist
PROC: 06L38CZ Occlusion of Esophageal Vein with Extraluminal Device, Via Natural or Artificial Opening Endoscopic (ICD-10-PCS; 2018-10-17)
PROC: 30233N1 Transfusion of Nonautologous Red Blood Cells into Peripheral Vein, Percutaneous Approach (ICD-10-PCS; 2018-10-17)
PROC: 02HV33Z Insertion of Infusion Device into Superior Vena Cava, Percutaneous Approach (ICD-10-PCS; 2018-10-17)
PROC: B548ZZA Ultrasonography of Superior Vena Cava, Guidance (ICD-10-PCS; 2018-10-17)
PROC: 5A1955Z Respiratory Ventilation, Greater than 96 Consecutive Hours (ICD-10-PCS; principal; 2018-10-18)
PROC: 0BH17EZ Insertion of Endotracheal Airway into Trachea, Via Natural or Artificial Opening (ICD-10-PCS; 2018-10-18)
PROC: 0W9G3ZZ Drainage of Peritoneal Cavity, Percutaneous Approach (ICD-10-PCS; 2018-10-27)
DX: A41.9 Sepsis, unspecified organism (principal); K72.00 Acute and subacute hepatic failure without coma; J96.00 Acute respiratory failure, unspecified whether with hypoxia or hypercapnia; J69.0 Pneumonitis due to inhalation of food and vomit; E43 Unspecified severe protein-calorie malnutrition; I85.01 Esophageal varices with bleeding; K76.6 Portal hypertension; D62 Acute posthemorrhagic anemia; E83.42 Hypomagnesemia; D69.6 Thrombocytopenia, unspecified; E87.0 Hyperosmolality and hypernatremia; F17.210 Nicotine dependence, cigarettes, uncomplicated; I51.7 Cardiomegaly; K70.31 Alcoholic cirrhosis of liver with ascites; E86.1 Hypovolemia; I85.11 Secondary esophageal varices with bleeding; Z79.899 Other long term (current) drug therapy; K72.90 Hepatic failure, unspecified without coma; K92.2 Gastrointestinal hemorrhage, unspecified; D68.4 Acquired coagulation factor deficiency; Z68.35 Body mass index [BMI] 35.0-35.9, adult
CPT/HCPCS: 31500; 36415; 36600; 49083; 51702; 71045; 74176; 76700; 76705; 76937; 80048; 80076; 80305; 80320; 82040; 82140; 82375; 82607; 82728; 82746; 82747; 82805; 82962; 83540; 83550; 83605; 83615; 83735; 84132; 84145; 84484; 85014; 85018; 85044; 86850; 86900; 86920; 87070; 88108; 88312; 92610; 93005; 94002; 94003; 94640; 96361; 96374; 97110; 97116; 97162; 97166; 97530; 97535; 99291; C1725; C1893; C9113; J0692; J1200; J1940; J2250; J2354; J2765; J3010; J3411; J3430; J3475; J3480; J3490; J7030; J7040; J7050; J7060; J7070; J7620; P9016; P9021; A4315; G0480

== ENCOUNTER 2018-11-27 19:54 | Inpatient (IN) | payer MEDICAID ==
[~2018-11-27] VITALS: Ht 170.2 cm; Wt 67.6 kg
[2018-11-27] MEDS ORDERED: ONDANSETRON HCL 4MG/2ML INJ IV STA (22:07)
[2018-11-27 23:57] LABS: HEMATOCRIT. 30.4 % (42.0-52.0); HEMOGLOBIN. 10.4 g/dL (14.0-18.0); MEAN CORPUSCULAR HEMOGLOBIN 31.2 pg (28.0-32.0); MEAN CORPUSCULAR VOLUME 91.1 fL (80.0-94.0); MEAN PLATELET VOLUME 9.2 fl (7.4-10.4); PLATELET 98 x1000/uL (130-400); RED BLOOD CELL COUNT 3.33 mill/uL (4.7-6.1); RED CELL DISTRIBUTION WIDTH 17.7 % (11.6-14.6)
[2018-11-28] VITALS (7 sets, daily range): BP systolic 97–131; BP diastolic 54–68
[2018-11-28 00:04] LABS: CHLORIDE 108 mEq/L (98-107)
[2018-11-28] MEDS ORDERED: SODIUM CHLORIDE 0.9% 500 ML IV ONE (00:30)
[2018-11-28] MEDS ORDERED: LACTULOSE 20G/30ML UDC PO ONE (00:30)
[2018-11-28] MEDS ORDERED: ERGO50CA PO (03:18)
[2018-11-28] MEDS ORDERED: MAGN200T5 MT (03:18)
[2018-11-28] MEDS ORDERED: LANS30CA55 PO (03:18)
[2018-11-28] MEDS ORDERED: SUCR1TAB PO (03:18)
[2018-11-28] MEDS ORDERED: ALD50 PO (03:18)
[2018-11-28] MEDS ORDERED: [UNRECOGNIZED DRUG - CODE] PO (03:18)
[2018-11-28] MEDS ORDERED: MV-M1CAP15 PO (03:18)
[2018-11-28] MEDS ORDERED: FURO-151 PO (03:18)
[2018-11-28] MEDS ORDERED: ONDANSETRON HCL 4MG/2ML INJ IV PRN (04:00)
[2018-11-28 04:02] LABS: PLATELET ESTIMATE DECREASED
[2018-11-28] MEDS: PANTOPRAZOLE 40MG DR TABLET PO SCH (06:06)
[2018-11-28] MEDS ORDERED: LANSOPRAZOLE 30MG DR CAPSULE PO SCH (07:10)
[2018-11-28] MEDS ORDERED: BISACODYL 10MG SUPP PR SCH (08:00)
[2018-11-28] MEDS: PROPRANOLOL HCL 10MG TABLET PO SCH ×3 (09:00→21:00)
[2018-11-28] MEDS ORDERED: LACTULOSE 20G/30ML UDC PO SCH (09:00)
[2018-11-28] MEDS: SPIRONOLACTONE 50MG TABLET PO SCH (09:00)
[2018-11-28] MEDS: FUROSEMIDE 40MG TABLET PO SCH (09:17)
[2018-11-28] MEDS: SUCRALFATE 1G TABLET PO SCH ×4 (09:17→21:16)
[2018-11-28] MEDS: MAGNESIUM OXIDE 400MG TABLET PO SCH (09:17)
[2018-11-28] MEDS: RIFAXIMIN 550 MG TABLET PO SCH ×2 (09:17→17:36)
[2018-11-28] MEDS: LACTULOSE 20G/30ML UDC PO SCH ×3 (09:20→17:44)
[2018-11-29] VITALS: BP 118/50
[2018-11-29 04:00] VITALS: BP 108/55
[2018-11-29] MEDS: PANTOPRAZOLE 40MG DR TABLET PO SCH (05:51)
[2018-11-29 07:08] LABS: CHLORIDE 110 mEq/L (98-107)
[2018-11-29 07:11] LABS: HEMATOCRIT. 29.3 % (42.0-52.0); HEMOGLOBIN. 9.8 g/dL (14.0-18.0); MEAN CORPUSCULAR HEMOGLOBIN 30.6 pg (28.0-32.0); MEAN CORPUSCULAR VOLUME 91.2 fL (80.0-94.0); MEAN PLATELET VOLUME 9.2 fl (7.4-10.4); PLATELET 92 x1000/uL (130-400); RED BLOOD CELL COUNT 3.21 mill/uL (4.7-6.1)
[2018-11-29 08:00] VITALS: BP 100/55
[2018-11-29] MEDS: PROPRANOLOL HCL 10MG TABLET PO SCH ×2 (08:05→20:47)
[2018-11-29] MEDS: RIFAXIMIN 550 MG TABLET PO SCH ×2 (08:33→17:18)
[2018-11-29] MEDS: SUCRALFATE 1G TABLET PO SCH ×4 (08:33→20:46)
[2018-11-29] MEDS: MAGNESIUM OXIDE 400MG TABLET PO SCH (08:34)
[2018-11-29] MEDS: FUROSEMIDE 40MG TABLET PO SCH (08:34)
[2018-11-29] MEDS: SPIRONOLACTONE 50MG TABLET PO SCH (08:42)
[2018-11-29] MEDS: LACTULOSE 20G/30ML UDC PO SCH ×3 (08:57→17:19)
[2018-11-29 09:05] LABS: PLATELET ESTIMATE DECREASED
[2018-11-29 12:00] VITALS: BP 104/50
[2018-11-29 16:00] VITALS: BP 114/65
[2018-11-29 20:00] VITALS: BP 112/57
[2018-11-30] VITALS: BP 108/53
[2018-11-30 04:00] VITALS: BP 97/53
[2018-11-30] MEDS: PANTOPRAZOLE 40MG DR TABLET PO SCH (05:59)
[2018-11-30 06:41] LABS: HEMATOCRIT. 28.6 % (42.0-52.0); HEMOGLOBIN. 9.8 g/dL (14.0-18.0); MEAN CORPUSCULAR VOLUME 90.5 fL (80.0-94.0); MEAN PLATELET VOLUME 9.6 fl (7.4-10.4); PLATELET 99 x1000/uL (130-400); RED BLOOD CELL COUNT 3.16 mill/uL (4.7-6.1); RED CELL DISTRIBUTION WIDTH 17.9 % (11.6-14.6)
[2018-11-30 06:46] LABS: CHLORIDE 108 mEq/L (98-107)
[2018-11-30 08:00] VITALS: BP 103/49
[2018-11-30] MEDS: LACTULOSE 20G/30ML UDC PO SCH ×3 (08:41→16:27)
[2018-11-30] MEDS: SUCRALFATE 1G TABLET PO SCH ×3 (08:42→16:27)
[2018-11-30] MEDS: MAGNESIUM OXIDE 400MG TABLET PO SCH (08:42)
[2018-11-30] MEDS: FUROSEMIDE 40MG TABLET PO SCH (08:42)
[2018-11-30] MEDS: RIFAXIMIN 550 MG TABLET PO SCH ×2 (08:42→16:27)
[2018-11-30] MEDS: PROPRANOLOL HCL 10MG TABLET PO SCH (08:43)
[2018-11-30] MEDS: SPIRONOLACTONE 50MG TABLET PO SCH (09:00)
[2018-11-30 11:29] LABS: PLATELET ESTIMATE DECREASED
[2018-11-30 12:00] VITALS: BP 98/55
[2018-11-30 16:00] VITALS: BP 95/58
[2018-11-30 16:33] VITALS: BP 95/58
== END 2018-11-30 17:35 | disposition home or self-care (01) | DRG 279 ==
LOC: ER 19:54 → 8WST 11-28 00:24 → ENRESERV 11-28 01:05
PROVIDERS: ADMIT Internal Medicine; ATTEND Internal Medicine
DX: K72.90 Hepatic failure, unspecified without coma (principal); E43 Unspecified severe protein-calorie malnutrition; I85.10 Secondary esophageal varices without bleeding; K76.6 Portal hypertension; K70.31 Alcoholic cirrhosis of liver with ascites; F17.210 Nicotine dependence, cigarettes, uncomplicated; F10.10 Alcohol abuse, uncomplicated; K56.41 Fecal impaction; N62 Hypertrophy of breast; Z71.6 Tobacco abuse counseling; Z68.23 Body mass index [BMI] 23.0-23.9, adult
CPT/HCPCS: 36415; 74176; 80048; 82140; 82962; 83605; 84443; 84484; 96361; 96374; 97161; 99285; J2405; J7040

== ENCOUNTER 2018-12-04 22:46 | Inpatient (IN) | payer MEDICAID ==
[~2018-12-04] VITALS: Ht 170.2 cm; Wt 72.6 kg
[~2018-12-04 22:46] MED LIST: ALD50 PO; ERGO50CA PO; FURO-151 PO; LANS30CA55 PO; MAGN200T5 MT; MV-M1CAP15 PO; SUCR1TAB PO; [UNRECOGNIZED DRUG - CODE] PO
[2018-12-04] MEDS ORDERED: FOLIC ACID 1 MG, THIAMINE HCL 100 MG, MVI, ADULT NO.1 10 ML in DEXTROSE 5% WATER 1,000 ML IV ONE ×4 (23:15)
[2018-12-05 00:11] LABS: HEMATOCRIT. 30.7 % (42.0-52.0); HEMOGLOBIN. 10.3 g/dL (14.0-18.0); MEAN CORPUSCULAR HEMOGLOBIN 30.5 pg (28.0-32.0); MEAN PLATELET VOLUME 9.3 fl (7.4-10.4); PLATELET 95 x1000/uL (130-400); RED BLOOD CELL COUNT 3.37 mill/uL (4.7-6.1); RED CELL DISTRIBUTION WIDTH 18.1 % (11.6-14.6)
[2018-12-05 00:17] LABS: CHLORIDE 111 mEq/L (98-107)
[2018-12-05 00:19] LABS: INR 1.3; PARTIAL THROMBOPLASTIN TIME 34.5 sec (23.4-31.0); PROTHROMBIN TIME 13.1 sec (9.6-11.0)
[2018-12-05 00:21] LABS: ETHANOL BLOOD < 10 mg/dL
[2018-12-05 01:04] LABS: *AMPHETAMINES SCREEN URINE NEGATIVE (NEGATIVE); *BARBITURATES SCREEN URINE NEGATIVE (NEGATIVE); *BENZODIAZEPINES SCREEN URINE NEGATIVE (NEGATIVE); *COCAINE SCREEN URINE NEGATIVE (NEGATIVE)
[2018-12-05 01:06] LABS: CANNABINOID URINE SCREEN NEGATIVE (NEGATIVE); METHADONE URINE SCREEN NEGATIVE (NEGATIVE); OPIATES URINE SCREEN NEGATIVE (NEGATIVE); PHENCYCLIDINE URINE SCREEN NEGATIVE (NEGATIVE)
[2018-12-05 01:54] LABS: PLATELET ESTIMATE DECREASED
[2018-12-05] MEDS ORDERED: LACTULOSE 20G/30ML UDC PO NR (02:00)
[2018-12-05 02:20] VITALS: BP 117/61
[2018-12-05 02:22] VITALS: BP 117/61
[2018-12-05] MEDS ORDERED: ONDANSETRON HCL 4MG/2ML INJ IV PRN (03:00)
[2018-12-05] MEDS: PANTOPRAZOLE 40MG DR TABLET PO SCH (06:09)
[2018-12-05] MEDS ORDERED: LANSOPRAZOLE 30 MG PO SCH (06:45)
[2018-12-05 06:49] LABS: CHLORIDE 111 mEq/L (98-107)
[2018-12-05 06:51] LABS: HEMATOCRIT. 27.3 % (42.0-52.0); HEMOGLOBIN. 9.4 g/dL (14.0-18.0); MEAN CORPUSCULAR VOLUME 90.2 fL (80.0-94.0); MEAN PLATELET VOLUME 9.2 fl (7.4-10.4); PLATELET 86 x1000/uL (130-400); RED BLOOD CELL COUNT 3.03 mill/uL (4.7-6.1); RED CELL DISTRIBUTION WIDTH 17.8 % (11.6-14.6)
[2018-12-05 08:00] VITALS: BP 109/61
[2018-12-05 08:54] LABS: PLATELET ESTIMATE DECREASED
[2018-12-05] MEDS ORDERED: LACTULOSE 300 ML in WATER FOR IRRIGATION,STERILE 700 ML IR NR (09:00)
[2018-12-05] MEDS ORDERED: LACTULOSE 20G/30ML UDC PO SCH (10:00)
[2018-12-05] MEDS: FUROSEMIDE 40MG TABLET PO SCH (11:20)
[2018-12-05] MEDS: RIFAXIMIN 550 MG TABLET PO SCH ×2 (11:20→20:30)
[2018-12-05] MEDS: SPIRONOLACTONE 50MG TABLET PO SCH (11:20)
[2018-12-05] MEDS: NICOTINE 7MG PATCH TD SCH (11:21)
[2018-12-05 12:00] VITALS: BP 98/59
[2018-12-05] MEDS: MAGNESIUM OXIDE 400MG TABLET PO SCH ×2 (12:23→17:19)
[2018-12-05 16:00] VITALS: BP 125/67
[2018-12-05] MEDS: LACTULOSE 20G/30ML UDC PO SCH (17:19)
[2018-12-05 20:00] VITALS: BP 112/58
[2018-12-05] MEDS: PROPRANOLOL HCL 10MG TABLET PO SCH (20:16)
[2018-12-06] VITALS: BP 102/54
[2018-12-06] MEDS: LACTULOSE 20G/30ML UDC PO SCH ×2 (02:15→09:54)
[2018-12-06 04:00] VITALS: BP 96/52
[2018-12-06] MEDS: PANTOPRAZOLE 40MG DR TABLET PO SCH (05:56)
[2018-12-06 08:00] VITALS: BP 104/54
[2018-12-06] MEDS: SPIRONOLACTONE 50MG TABLET PO SCH (08:54)
[2018-12-06] MEDS: FUROSEMIDE 40MG TABLET PO SCH (08:54)
[2018-12-06] MEDS: MAGNESIUM OXIDE 400MG TABLET PO SCH (08:54)
[2018-12-06] MEDS: RIFAXIMIN 550 MG TABLET PO SCH (08:54)
[2018-12-06] MEDS: NICOTINE 7MG PATCH TD SCH (08:55)
[2018-12-06] MEDS: PROPRANOLOL HCL 10MG TABLET PO SCH (08:55)
[2018-12-06 10:18] LABS: BASOPHILS % 0.8 % (0.0-2.0); EOSINOPHILS % 4.8 % (0.0-5.0); HEMOGLOBIN. 9.2 g/dL (14.0-18.0); LYMPHOCYTES % 38.9 % (20.0-50.0); MEAN CORPUSCULAR HEMOGLOBIN 30.7 pg (28.0-32.0); MEAN CORPUSCULAR VOLUME 90.3 fL (80.0-94.0); MEAN PLATELET VOLUME 9.4 fl (7.4-10.4); MONOCYTES % 14.1 % (2.0-8.0); NEUTROPHILS % 41.4 % (40.0-76.0); PLATELET 87 x1000/uL (130-400); RED BLOOD CELL COUNT 2.99 mill/uL (4.7-6.1); RED CELL DISTRIBUTION WIDTH 17.9 % (11.6-14.6)
[2018-12-06 10:23] LABS: CHLORIDE 109 mEq/L (98-107)
[2018-12-06 11:25] VITALS: BP 104/54
[2018-12-06 12:00] VITALS: BP 106/61
== END 2018-12-06 14:15 | disposition home or self-care (01) | DRG 254 ==
LOC: ER 22:46 → 5WST 12-05 01:27 → ENRESERV 12-05 01:37
PROVIDERS: ADMIT Internal Medicine; ATTEND Internal Medicine
DX: K59.00 Constipation, unspecified (principal); E43 Unspecified severe protein-calorie malnutrition; D61.818 Other pancytopenia; E87.8 Other disorders of electrolyte and fluid balance, not elsewhere classified; I85.10 Secondary esophageal varices without bleeding; K72.90 Hepatic failure, unspecified without coma; F10.10 Alcohol abuse, uncomplicated; F17.210 Nicotine dependence, cigarettes, uncomplicated; K74.60 Unspecified cirrhosis of liver; Z68.25 Body mass index [BMI] 25.0-25.9, adult; Z79.899 Other long term (current) drug therapy; Z71.6 Tobacco abuse counseling
CPT/HCPCS: 36415; 71045; 80048; 80305; 80320; 82140; 83036; 83880; 84484; 93005; 96365; 99285; J3411; J3490; J7070; G0480

== ENCOUNTER 2018-12-31 09:08 | Day surgery (SDC) | payer MEDICAID ==
[~2018-12-31] VITALS: Ht 170.2 cm; Wt 77.1 kg
[2018-12-31] MEDS ORDERED: LACTATED RINGERS 1,000 ML IV SCH (10:30)
[2018-12-31] MEDS ORDERED: PROPOFOL 200MG/20ML VIAL IV ONE (10:37)
[2018-12-31] MEDS ORDERED: LIDOCAINE HCL/PF 1% 10 MG/ML 5ML VIAL ONE ×2 (10:37→10:38)
[2018-12-31] MEDS ORDERED: PROP10TA10 PO (11:08)
[2018-12-31] MEDS ORDERED: SIMETHICONE 40 MG/0.6 ML 30ML ONE (11:14)
[2018-12-31] MEDS ORDERED: EPHEDRINE SULFATE 50MG/ML VIAL ONE (11:14)
[2018-12-31] MEDS ORDERED: KETAMINE HCL 50 MG/ML 10ML ONE (11:16)
[2018-12-31] MEDS ORDERED: MIDAZOLAM HCL 2 MG/2 ML VIAL ONE (11:21)
== END 2018-12-31 14:00 | disposition home or self-care (01) ==
LOC: OR 09:08
PROVIDERS: ATTEND Internal Medicine Gastroenterology
DX: K29.50 Unspecified chronic gastritis without bleeding (principal); K74.60 Unspecified cirrhosis of liver; I85.00 Esophageal varices without bleeding; K31.89 Other diseases of stomach and duodenum; D64.9 Anemia, unspecified; F10.10 Alcohol abuse, uncomplicated; K76.6 Portal hypertension; Z79.899 Other long term (current) drug therapy; Z87.891 Personal history of nicotine dependence
CPT/HCPCS: 43239; 43244; 88305; 88312; 88313; J2250; J2704; J3490

== ENCOUNTER 2019-08-21 16:06 | Inpatient (IN) | payer MEDICAID ==
[~2019-08-21] VITALS: Ht 165.1 cm; Wt 90.5 kg
[~2019-08-21 16:06] MED LIST changes: +PROP10TA10 PO
[2019-08-21] MEDS ORDERED: LORAZEPAM 2MG/ML CPJ ONE (16:17)
[2019-08-21] MEDS ORDERED: SODIUM CHLORIDE 0.9% 1,000 ML IV ONE (16:47)
[2019-08-21 17:05] LABS: CLARITY URINE CLEAR (CLEAR); COLOR URINE DARK YELLOW (YELLOW); KETONES URINE TRACE (NEGATIVE); LEUKOCYTE ESTERASE URINE TRACE (NEGATIVE); NITRITE URINE NEGATIVE (NEGATIVE); OCCULT BLOOD URINE 2+ (NEGATIVE); PH URINE 5.5 (4.5-8.0); PROTEIN URINE 3+ (NEGATIVE); SPECIFIC GRAVITY URINE 1.024 (1.005-1.030)
[2019-08-21 17:08] LABS: BASOPHILS % 0.6 % (0.0-2.0); HEMATOCRIT. 41.8 % (42.0-52.0); HEMOGLOBIN. 14.3 g/dL (14.0-18.0); LYMPHOCYTES % 59.2 % (20.0-50.0); MEAN CORPUSCULAR HEMOGLOBIN 30.9 pg (28.0-32.0); MEAN CORPUSCULAR VOLUME 90.3 fL (80.0-94.0); MONOCYTES % 14.2 % (2.0-8.0); RED BLOOD CELL COUNT 4.63 mill/uL (4.7-6.1); RED CELL DISTRIBUTION WIDTH 24.9 % (11.6-14.6)
[2019-08-21 17:11] LABS: CHLORIDE 105 mEq/L (98-107)
[2019-08-21] MEDS ORDERED: LORAZEPAM 2MG/ML CPJ IV ONE ×5 (17:15→19:15)
[2019-08-21 17:16] LABS: INR 1.4; PROTHROMBIN TIME 14.7 sec (9.6-11.0)
[2019-08-21 17:30] LABS: MEAN PLATELET VOLUME 9.9 fl (7.4-10.4)
[2019-08-21 17:31] LABS: PLATELET 39 x1000/uL (130-400)
[2019-08-21 17:32] LABS: PLATELET ESTIMATE MARKEDLY DECREASED
[2019-08-21] MEDS ORDERED: LACTULOSE 20G/30ML UDC PO ONE (18:45)
[2019-08-21] MEDS ORDERED: VISCOUS LIDOCAINE 2% 15 ML UDC MM PRN (18:45)
[2019-08-21] MEDS ORDERED: MORPHINE SULFATE 4 MG/ML CPJ (NOT FOR IM USE) IV ONE (19:15)
[2019-08-21] MEDS ORDERED: LEVETIRACETAM 1000MG/100ML 100 ML IV ONE (19:45)
[2019-08-21] MEDS ORDERED: SUCRALFATE 1G TABLET PO SCH (21:00)
[2019-08-21] MEDS ORDERED: HYDROCODONE/ACETAMINOPHEN 5/325MG TABLET PO PRN (21:00)
[2019-08-21] MEDS ORDERED: DOCUSATE SODIUM 100MG CAPSULE PO PRN (21:00)
[2019-08-21] MEDS ORDERED: ACETAMINOPHEN 325MG TABLET PO PRN (21:00)
[2019-08-21] MEDS ORDERED: LORAZEPAM 2MG/ML CPJ IV PRN (21:00)
[2019-08-21] MEDS ORDERED: IPRATROPIUM/ALBUTEROL 0.5-3(2.5)MG/3ML NEB NEB PRN (21:00)
[2019-08-21] MEDS ORDERED: ONDANSETRON HCL 4MG/2ML INJ IV PRN (21:00)
[2019-08-21] MEDS ORDERED: CLONIDINE 0.1MG TABLET PO PRN (21:00)
[2019-08-21] MEDS: PANTOPRAZOLE SODIUM 40 MG/VIAL IV SCH (21:00)
[2019-08-21] MEDS ORDERED: LEVETIRACETAM 250 MG in SODIUM CHLORIDE 0.9% 100 ML IV SCH (21:00)
[2019-08-21] MEDS ORDERED: MAGNESIUM/ALUMINUM HYDROXIDE/SIMETHICONE 30ML UDC PO PRN (21:00)
[2019-08-21] MEDS ORDERED: RIFAXIMIN 550 MG TABLET PO SCH (21:00)
[2019-08-21 22:51] LABS: CREATINE KINASE MB FRACTION 1.7 ng/mL (0.5-3.6)
[2019-08-21] MEDS: LACTULOSE 20G/30ML UDC PO SCH (22:52)
[2019-08-22 04:54] LABS: BASOPHILS % 0.3 % (0.0-2.0); HEMATOCRIT. 40.8 % (42.0-52.0); HEMOGLOBIN. 13.8 g/dL (14.0-18.0); MEAN CORPUSCULAR HEMOGLOBIN 30.3 pg (28.0-32.0); MEAN CORPUSCULAR VOLUME 89.3 fL (80.0-94.0); MEAN PLATELET VOLUME 9.4 fl (7.4-10.4); MONOCYTES % 14.2 % (2.0-8.0); NEUTROPHILS % 48.5 % (40.0-76.0); RED BLOOD CELL COUNT 4.56 mill/uL (4.7-6.1); RED CELL DISTRIBUTION WIDTH 25.1 % (11.6-14.6)
[2019-08-22 04:57] LABS: PLATELET 31 x1000/uL (130-400)
[2019-08-22 05:02] LABS: CHLORIDE 111 mEq/L (98-107)
[2019-08-22 05:09] LABS: LDL CHOLESTEROL 117 mg/dL (5-100)
[2019-08-22 05:10] LABS: CREATINE KINASE 548 IU/L (39-308); HDL CHOLESTEROL 14 mg/dL (40-59)
[2019-08-22 05:13] LABS: CREATINE KINASE MB FRACTION 1.3 ng/mL (0.5-3.6)
[2019-08-22] MEDS: LACTULOSE 20G/30ML UDC PO SCH ×3 (06:00→22:54)
[2019-08-22] MEDS ORDERED: LEVETIRACETAM 250 MG in SODIUM CHLORIDE 0.9% 100 ML IV SCH (09:00)
[2019-08-22 11:15] VITALS: BP 116/65
[2019-08-22 11:29] LABS: *AMPHETAMINES SCREEN URINE NEGATIVE (NEGATIVE); *BARBITURATES SCREEN URINE NEGATIVE (NEGATIVE); *COCAINE SCREEN URINE NEGATIVE (NEGATIVE); CANNABINOID URINE SCREEN NEGATIVE (NEGATIVE); PHENCYCLIDINE URINE SCREEN NEGATIVE (NEGATIVE)
[2019-08-22 11:30] LABS: METHADONE URINE SCREEN NEGATIVE (NEGATIVE); OPIATES URINE SCREEN NEGATIVE (NEGATIVE)
[2019-08-22 11:32] LABS: *BENZODIAZEPINES SCREEN URINE NEGATIVE (NEGATIVE)
[2019-08-22 12:00] VITALS: BP 107/65
[2019-08-22] MEDS: THIAMINE HCL 100MG TABLET PO SCH ×2 (12:00→17:37)
[2019-08-22] MEDS: MULTIVITAMINS,THER W-MINERALS TABLET PO SCH (14:15)
[2019-08-22] MEDS: FOLIC ACID 1MG TABLET PO SCH (14:16)
[2019-08-22] MEDS: RIFAXIMIN 550 MG TABLET PO SCH ×2 (14:16→22:54)
[2019-08-22] MEDS: LEVETIRACETAM 250 MG in SODIUM CHLORIDE 0.9% 100 ML IV SCH (14:16)
[2019-08-22] MEDS: SUCRALFATE 1G TABLET PO SCH ×3 (14:16→22:53)
[2019-08-22] MEDS: PANTOPRAZOLE SODIUM 40 MG/VIAL IV SCH (14:17)
[2019-08-22] MEDS ORDERED: POTASSIUM CHLORIDE 20MEQ TABLET SR PO NR (19:30)
[2019-08-22 20:00] VITALS: BP 114/61
[2019-08-22] MEDS: PROPRANOLOL HCL 10MG TABLET PO SCH (22:54)
[2019-08-23] VITALS: BP 109/66
[2019-08-23] MEDS: LEVETIRACETAM 250 MG in SODIUM CHLORIDE 0.9% 100 ML IV SCH ×3 (03:36→21:00)
[2019-08-23 04:00] VITALS: BP 106/67
[2019-08-23] MEDS: LACTULOSE 20G/30ML UDC PO SCH ×3 (06:00→22:55)
[2019-08-23 06:10] LABS: HEMATOCRIT. 36.9 % (42.0-52.0); HEMOGLOBIN. 12.7 g/dL (14.0-18.0); MEAN CORPUSCULAR HEMOGLOBIN 30.7 pg (28.0-32.0); MEAN CORPUSCULAR VOLUME 89.4 fL (80.0-94.0); MEAN PLATELET VOLUME 9.4 fl (7.4-10.4); RED BLOOD CELL COUNT 4.13 mill/uL (4.7-6.1); RED CELL DISTRIBUTION WIDTH 25.1 % (11.6-14.6)
[2019-08-23 07:59] LABS: PLATELET 37 x1000/uL (130-400)
[2019-08-23 08:00] VITALS: BP 105/63
[2019-08-23] MEDS: SUCRALFATE 1G TABLET PO SCH ×4 (08:19→22:55)
[2019-08-23] MEDS: PANTOPRAZOLE SODIUM 40 MG/VIAL IV SCH (08:19)
[2019-08-23] MEDS: FOLIC ACID 1MG TABLET PO SCH (08:20)
[2019-08-23] MEDS: RIFAXIMIN 550 MG TABLET PO SCH ×2 (08:20→22:55)
[2019-08-23] MEDS: PROPRANOLOL HCL 10MG TABLET PO SCH ×2 (08:20→21:00)
[2019-08-23 11:20] LABS: PLATELET ESTIMATE MARKEDLY DECREASED
[2019-08-23 12:00] VITALS: BP 122/70
[2019-08-23] MEDS: MULTIVITAMINS,THER W-MINERALS TABLET PO SCH (12:01)
[2019-08-23] MEDS: THIAMINE HCL 100MG TABLET PO SCH (12:01)
[2019-08-23] MEDS ORDERED: MAGNESIUM 2 G PREMIX 50 ML IV NR (13:30)
[2019-08-23 16:00] VITALS: BP 103/54
[2019-08-23 20:00] VITALS: BP 98/58
[2019-08-24] VITALS: BP 102/61
[2019-08-24 04:00] VITALS: BP 108/66
[2019-08-24] MEDS: LACTULOSE 20G/30ML UDC PO SCH ×3 (07:09→21:26)
[2019-08-24 07:17] LABS: CHLORIDE 111 mEq/L (98-107)
[2019-08-24 07:22] LABS: HEMATOCRIT. 36.5 % (42.0-52.0); HEMOGLOBIN. 12.6 g/dL (14.0-18.0); MEAN PLATELET VOLUME 9.1 fl (7.4-10.4); RED BLOOD CELL COUNT 4.06 mill/uL (4.7-6.1); RED CELL DISTRIBUTION WIDTH 24.9 % (11.6-14.6)
[2019-08-24 07:47] LABS: PLATELET 38 x1000/uL (130-400)
[2019-08-24 08:06] VITALS: BP 119/70
[2019-08-24] MEDS: PANTOPRAZOLE SODIUM 40 MG/VIAL IV SCH (09:00)
[2019-08-24] MEDS: PROPRANOLOL HCL 10MG TABLET PO SCH ×2 (10:11→21:00)
[2019-08-24] MEDS: THIAMINE HCL 100MG TABLET PO SCH (10:11)
[2019-08-24] MEDS: LEVETIRACETAM 250 MG in SODIUM CHLORIDE 0.9% 100 ML IV SCH ×2 (10:11→21:24)
[2019-08-24] MEDS: SUCRALFATE 1G TABLET PO SCH ×4 (10:11→21:25)
[2019-08-24] MEDS: FOLIC ACID 1MG TABLET PO SCH (10:11)
[2019-08-24] MEDS: RIFAXIMIN 550 MG TABLET PO SCH ×2 (10:11→21:25)
[2019-08-24] MEDS: MULTIVITAMINS,THER W-MINERALS TABLET PO SCH (10:11)
[2019-08-24] MEDS ORDERED: MAGNESIUM 2 G PREMIX 50 ML IV SCH (12:00)
[2019-08-24 12:07] VITALS: BP 109/55
[2019-08-24 13:44] LABS: PLATELET ESTIMATE MARKEDLY DECREASED
[2019-08-24 16:06] VITALS: BP 100/53
[2019-08-24 20:00] VITALS: BP 105/51
[2019-08-25] VITALS: BP 109/60
[2019-08-25 04:00] VITALS: BP 108/57
[2019-08-25] MEDS: LACTULOSE 20G/30ML UDC PO SCH ×3 (06:46→22:14)
[2019-08-25 07:54] LABS: HEMATOCRIT. 38.3 % (42.0-52.0); HEMOGLOBIN. 12.8 g/dL (14.0-18.0); MEAN CORPUSCULAR HEMOGLOBIN 30.7 pg (28.0-32.0); MEAN CORPUSCULAR VOLUME 91.5 fL (80.0-94.0); MEAN PLATELET VOLUME 9.5 fl (7.4-10.4); RED BLOOD CELL COUNT 4.18 mill/uL (4.7-6.1); RED CELL DISTRIBUTION WIDTH 24.8 % (11.6-14.6)
[2019-08-25 08:00] VITALS: BP 134/64
[2019-08-25 08:06] LABS: CHLORIDE 112 mEq/L (98-107); PLATELET 44 x1000/uL (130-400)
[2019-08-25 08:28] LABS: CREATINE KINASE 2062 IU/L (39-308)
[2019-08-25] MEDS: LEVETIRACETAM 250 MG in SODIUM CHLORIDE 0.9% 100 ML IV SCH ×2 (09:44→22:52)
[2019-08-25] MEDS: PANTOPRAZOLE SODIUM 40 MG/VIAL IV SCH (09:44)
[2019-08-25] MEDS: THIAMINE HCL 100MG TABLET PO SCH (09:44)
[2019-08-25] MEDS: PROPRANOLOL HCL 10MG TABLET PO SCH ×2 (09:45→22:14)
[2019-08-25] MEDS: MULTIVITAMINS,THER W-MINERALS TABLET PO SCH (09:45)
[2019-08-25] MEDS: SUCRALFATE 1G TABLET PO SCH ×4 (09:45→22:15)
[2019-08-25] MEDS: FOLIC ACID 1MG TABLET PO SCH (09:45)
[2019-08-25] MEDS: RIFAXIMIN 550 MG TABLET PO SCH ×2 (09:45→22:14)
[2019-08-25 11:08] LABS: PLATELET ESTIMATE MARKEDLY DECREASED
[2019-08-25 12:00] VITALS: BP 122/62
[2019-08-25] MEDS ORDERED: SODIUM CHLORIDE 0.9% 1000ML BAG (SEPSIS BOLUS) IV ONE (12:45)
[2019-08-25] MEDS ORDERED: SODIUM CHLORIDE 0.9% 1,000 ML IV SCH (13:00)
[2019-08-25] MEDS: SODIUM CHLORIDE 0.9% 1,000 ML IV SCH (13:00)
[2019-08-25] MEDS ORDERED: MAGNESIUM 4 G PREMIX 100 ML IV SCH (14:00)
[2019-08-25 17:03] VITALS: BP 108/72
[2019-08-25 20:00] VITALS: BP 112/58
[2019-08-26] VITALS: BP 119/54
[2019-08-26] MEDS: LACTULOSE 20G/30ML UDC PO SCH ×2 (05:10→13:13)
[2019-08-26] MEDS: SUCRALFATE 1G TABLET PO SCH ×3 (05:11→17:17)
[2019-08-26 06:13] LABS: HEMATOCRIT. 36.4 % (42.0-52.0); HEMOGLOBIN. 12.5 g/dL (14.0-18.0); MEAN CORPUSCULAR HEMOGLOBIN 31.1 pg (28.0-32.0); MEAN CORPUSCULAR VOLUME 90.8 fL (80.0-94.0); MEAN PLATELET VOLUME 9.4 fl (7.4-10.4); RED BLOOD CELL COUNT 4.01 mill/uL (4.7-6.1); RED CELL DISTRIBUTION WIDTH 24.6 % (11.6-14.6)
[2019-08-26 06:22] LABS: CHLORIDE 109 mEq/L (98-107)
[2019-08-26 06:45] LABS: CREATINE KINASE 1506 IU/L (39-308)
[2019-08-26 07:00] LABS: PLATELET 47 x1000/uL (130-400)
[2019-08-26 08:00] VITALS: BP 122/71
[2019-08-26] MEDS: SODIUM CHLORIDE 0.9% 1,000 ML IV SCH (09:00)
[2019-08-26] MEDS: FOLIC ACID 1MG TABLET PO SCH (09:00)
[2019-08-26] MEDS: THIAMINE HCL 100MG TABLET PO SCH (09:00)
[2019-08-26] MEDS: RIFAXIMIN 550 MG TABLET PO SCH (09:00)
[2019-08-26] MEDS: MULTIVITAMINS,THER W-MINERALS TABLET PO SCH (09:00)
[2019-08-26] MEDS: PANTOPRAZOLE SODIUM 40 MG/VIAL IV SCH (09:00)
[2019-08-26] MEDS: PROPRANOLOL HCL 10MG TABLET PO SCH (09:01)
[2019-08-26] MEDS: LEVETIRACETAM 250 MG in SODIUM CHLORIDE 0.9% 100 ML IV SCH (09:57)
[2019-08-26 10:01] LABS: NUCLEATED RED BLOOD CELLS 1 /100 WBC; PLATELET ESTIMATE MARKEDLY DECREASED
[2019-08-26 12:00] VITALS: BP 117/64
[2019-08-26 16:00] VITALS: BP 125/66
[2019-08-26] MEDS ORDERED: RIFA550T PO (16:07)
[2019-08-26] MEDS ORDERED: KEPP250 MT (16:07)
[2019-08-26] MEDS ORDERED: LACT10SO MT (16:07)
[2019-08-26] MEDS ORDERED: THIA100T72 PO (16:07)
[2019-08-26] MEDS ORDERED: MV-M1CAP15 PO (16:26)
[2019-08-26] MEDS ORDERED: ALD50 PO (16:26)
[2019-08-26] MEDS ORDERED: LANS30CA55 PO (16:26)
[2019-08-26] MEDS ORDERED: MAGN200T5 MT (16:26)
[2019-08-26] MEDS ORDERED: ERGO50CA PO (16:26)
[2019-08-26] MEDS ORDERED: FURO-151 PO (16:26)
[2019-08-26] MEDS ORDERED: MAGNESIUM 4 G PREMIX 100 ML IV ONE (16:30)
[2019-08-26 17:39] LABS: CREATINE KINASE 1241 IU/L (39-308)
== END 2019-08-26 19:10 | disposition home or self-care (01) | DRG 279 ==
LOC: ER 16:11 → 6WST 19:36 → EDBEDREQTM 19:39 → EDBEDREQ 19:39 → ENRESERV 08-22 08:39 → 6EST 08-25 16:22
PROVIDERS: ADMIT Internal Medicine; ATTEND Internal Medicine
PROC: 4A10X4Z Monitoring of Central Nervous Electrical Activity, External Approach (ICD-10-PCS; principal; 2019-08-25)
DX: K72.00 Acute and subacute hepatic failure without coma (principal); D68.9 Coagulation defect, unspecified; D69.59 Other secondary thrombocytopenia; E46 Unspecified protein-calorie malnutrition; E11.65 Type 2 diabetes mellitus with hyperglycemia; M62.82 Rhabdomyolysis; K76.6 Portal hypertension; R16.1 Splenomegaly, not elsewhere classified; G40.89 Other seizures; D50.9 Iron deficiency anemia, unspecified; E87.6 Hypokalemia; K29.70 Gastritis, unspecified, without bleeding; K70.30 Alcoholic cirrhosis of liver without ascites; Z68.33 Body mass index [BMI] 33.0-33.9, adult; Z88.8 Allergy status to other drugs, medicaments and biological substances; Z91.09 Other allergy status, other than to drugs and biological substances; Z79.899 Other long term (current) drug therapy
CPT/HCPCS: 36415; 71045; 76700; 80048; 80053; 80061; 80076; 80305; 81003; 82140; 82550; 82553; 82962; 83735; 83880; 84443; 84484; 85025; 86850; 86900; 93005; 99291; C9113; J1953; J2060; J3475; J7030; J7050

== ENCOUNTER 2020-03-23 00:47 | Inpatient (IN) | payer MEDICAID ==
[~2020-03-23] VITALS: Ht 167.6 cm; Wt 98.9 kg
[~2020-03-23 00:47] MED LIST changes: +KEPP500 MT; +LACT10SO MT; +RIFA550T PO; +THIA100T72 PO; -[UNRECOGNIZED DRUG - CODE] PO
[2020-03-23] MEDS ORDERED: IOHEXOL-300 100 ML BOTTLE ONE (02:46)
[2020-03-23 04:34] LABS: HEMATOCRIT. 36.6 % (42.0-52.0); HEMOGLOBIN. 12.6 g/dL (14.0-18.0); MEAN CORPUSCULAR HEMOGLOBIN 31.7 pg (28.0-32.0); MEAN CORPUSCULAR VOLUME 92.4 fL (80.0-94.0); MEAN PLATELET VOLUME 10.6 fl (7.4-10.4); RED BLOOD CELL COUNT 3.97 mill/uL (4.7-6.1); RED CELL DISTRIBUTION WIDTH 18.6 % (11.6-14.6)
[2020-03-23 04:38] LABS: CHLORIDE 104 mEq/L (98-107)
[2020-03-23 04:43] LABS: INR 1.6; PARTIAL THROMBOPLASTIN TIME 44.9 sec (23.4-31.0); PROTHROMBIN TIME 16.4 sec (9.6-11.0)
[2020-03-23 04:44] LABS: PLATELET 50 x1000/uL (130-400)
[2020-03-23 06:56] LABS: PLATELET ESTIMATE MARKEDLY DECREASED
[2020-03-23 09:48] VITALS: BP 135/65
[2020-03-23 10:00] VITALS: BP 135/68
[2020-03-23] MEDS ORDERED: ONDANSETRON HCL 4MG/2ML INJ IV PRN (10:45)
[2020-03-23] MEDS ORDERED: ACETAMINOPHEN 325MG TABLET PO PRN (10:45)
[2020-03-23 12:00] VITALS: BP 108/60
[2020-03-23 12:43] VITALS: BP 135/68
[2020-03-23] MEDS ORDERED: LEVETIRACETAM 500MG TABLET PO SCH (21:00)
== END 2020-03-23 14:25 | disposition home or self-care (01) | DRG 206 ==
LOC: ER 00:47 → 8WST 03:06 → ENRESERV 08:16 → 8WST 09:20
PROVIDERS: ADMIT Internal Medicine; ATTEND Internal Medicine
PROC: 30233R1 Transfusion of Nonautologous Platelets into Peripheral Vein, Percutaneous Approach (ICD-10-PCS; principal; 2020-03-23)
DX: T82.838A Hemorrhage due to vascular prosthetic devices, implants and grafts, initial encounter (principal); K74.60 Unspecified cirrhosis of liver; D61.818 Other pancytopenia; F17.200 Nicotine dependence, unspecified, uncomplicated; E87.1 Hypo-osmolality and hyponatremia; E43 Unspecified severe protein-calorie malnutrition; Y83.8 Other surgical procedures as the cause of abnormal reaction of the patient, or of later complication, without mention of misadventure at the time of the procedure; Z88.8 Allergy status to other drugs, medicaments and biological substances; Z68.35 Body mass index [BMI] 35.0-35.9, adult; Y92.89 Other specified places as the place of occurrence of the external cause
CPT/HCPCS: 36415; 70491; 80053; 83605; 85025; 86850; 86900; 99285; P9034; Q9967

== ENCOUNTER 2020-06-21 06:21 | Inpatient (IN) | payer MEDICAID, OTHER ==
[~2020-06-21] VITALS: Ht 182.9 cm; Wt 118.4 kg
[~2020-06-21 06:21] MED LIST changes: -LACT10SO MT; +LACT10SO3 MT
[2020-06-21] MEDS ORDERED: LEVETIRACETAM 1000MG PREMIX 100 ML IV ONE (06:45)
[2020-06-21] MEDS ORDERED: SODIUM CHLORIDE 0.9% 1,000 ML IV ONE (06:45)
[2020-06-21] MEDS ORDERED: LORAZEPAM 2MG/ML CPJ IV ONE ×2 (06:45)
[2020-06-21] MEDS ORDERED: SUCCINYLCHOLINE CHLORIDE 200MG/10ML IV ONE (07:20)
[2020-06-21] MEDS ORDERED: ETOMIDATE 2MG/ML 10ML VIAL IV ONE (07:20)
[2020-06-21] MEDS ORDERED: PROPOFOL 10MG/ML 100ML 100 ML IV ONE ×2 (07:30→11:45)
[2020-06-21] MEDS ORDERED: FENTANYL CITRATE/PF 1,000 MCG in SODIUM CHLORIDE 0.9% 80 ML IV PRN (07:30)
[2020-06-21 07:38] LABS: BASOPHILS % 0.6 % (0.0-2.0); EOSINOPHILS % 1.5 % (0.0-5.0); HEMATOCRIT. 41.8 % (42.0-52.0); HEMOGLOBIN. 13.9 g/dL (14.0-18.0); MEAN CORPUSCULAR HEMOGLOBIN 34.5 pg (28.0-32.0); MEAN CORPUSCULAR VOLUME 104.1 fL (80.0-94.0); MEAN PLATELET VOLUME 10.3 fl (7.4-10.4); MONOCYTES % 12.4 % (2.0-8.0); NEUTROPHILS % 40.5 % (40.0-76.0); RED BLOOD CELL COUNT 4.01 mill/uL (4.7-6.1); RED CELL DISTRIBUTION WIDTH 18.3 % (11.6-14.6)
[2020-06-21 07:42] LABS: CHLORIDE 99 mEq/L (98-107)
[2020-06-21 07:47] LABS: ETHANOL BLOOD < 10 mg/dL; PLATELET 50 x1000/uL (130-400)
[2020-06-21 07:56] LABS: CARBAMAZEPINE < 0.5 ug/mL (4-12); PHENOBARBITAL < 2.1 ug/mL (15.0-40.0); VALPROIC ACID < 3.0 ug/mL (50-100)
[2020-06-21] MEDS ORDERED: HYDROCODONE/ACETAMINOPHEN 5/325MG TABLET PO PRN (09:45)
[2020-06-21] MEDS ORDERED: ONDANSETRON HCL 4MG/2ML INJ IV PRN (09:45)
[2020-06-21] MEDS ORDERED: ACETAMINOPHEN 325MG TABLET PO PRN ×2 (09:45)
[2020-06-21] MEDS ORDERED: CLONIDINE 0.1MG TABLET PO PRN (09:45)
[2020-06-21] MEDS ORDERED: LORAZEPAM 0.5MG TABLET PO PRN (09:45)
[2020-06-21] MEDS ORDERED: PANTOPRAZOLE SODIUM 40 MG/VIAL IV SCH (09:45)
[2020-06-21] MEDS ORDERED: FENTANYL CITRATE 2,500 MCG in SODIUM CHLORIDE 0.9% 200 ML IV PRN (10:00)
[2020-06-21 10:30] LABS: PLATELET ESTIMATE MARKEDLY DECREASED
[2020-06-21 11:34] LABS: BG BASE EXCESS 1.4 mmol/L (-2.0-2.0); BG CARBOXYHEMOGLOBIN 1.1 % (0.5-1.5); BG DEOXYHEMOGLOBIN 3.5 % (0.0-5.0); BG FRACTION INSPIRED OXYGEN 40; BG HCO3 ACT 25.3 mmol/L (22.0-26.0); BG METHEMOGLOBIN 0.1 % (0.0-1.5); BG OXYGEN SATURATION 96.5 % (92.0-98.5); BG OXYHEMOGLOBIN 95.3 % (94.0-97.0); BG PCO2 37.6 mmHg (35.0-45.0); BG PH 7.445 (7.350-7.450); BG PO2 85.6 mmHg (75.0-100.0); BG SAMPLE SITE RIGHT RADIAL; BG TOTAL HEMOGLOBIN 13.8 g/dL (12.0-18.0); BG VENT MODE VENT - AC
[2020-06-21] MEDS: FUROSEMIDE 40MG TABLET PO SCH (13:45)
[2020-06-21] MEDS: PROPRANOLOL HCL 10MG TABLET PO SCH ×2 (14:30→22:32)
[2020-06-21] MEDS: LACTULOSE 20G/30ML UDC PO SCH (14:30)
[2020-06-21] MEDS: METRONIDAZOLE 500 MG PREMIX 100 ML IV SCH (16:00)
[2020-06-21] MEDS: CEFTRIAXONE 1,000 MG in DEXTROSE 5% WATER 50 ML IV SCH (16:00)
[2020-06-21 16:31] LABS: INR 1.6; PROTHROMBIN TIME 16.3 sec (9.6-11.0)
[2020-06-21] MEDS ORDERED: CEFTRIAXONE SODIUM 1 G/VIAL ONE (16:54)
[2020-06-21] MEDS ORDERED: OCTREOTIDE ACETATE 50 MCG/ML 1ML IV NR (17:00)
[2020-06-21] MEDS: SUCRALFATE 1G TABLET PO SCH (17:00)
[2020-06-21] MEDS ORDERED: PROPOFOL 10MG/ML 100ML 100 ML IV PRN (17:15)
[2020-06-21] MEDS: DEXAMETHASONE 10 MG/ML VIAL IV SCH (17:30)
[2020-06-21] MEDS: PANTOPRAZOLE SODIUM 40 MG/VIAL IV SCH (18:59)
[2020-06-21] MEDS ORDERED: PHYTONADIONE 10MG/ML AMP SUBCUT NR (19:00)
[2020-06-21 20:45] LABS: HEPATITIS B SURFACE ANTIGEN NEGATIVE
[2020-06-21 21:14] LABS: HEPATITIS A AB IGM NEGATIVE (NEGATIVE)
[2020-06-21 21:35] LABS: HEMATOCRIT 38.5 % (42.0-52.0); HEMOGLOBIN 12.9 g/dL (14.0-18.0)
[2020-06-21] MEDS: OCTREOTIDE 1,000 MCG in SODIUM CHLORIDE 0.9% 100 ML IV PRN (21:52)
[2020-06-21] MEDS ORDERED: MIDAZOLAM 100MG/100ML PMX 100 ML IV PRN (22:30)
[2020-06-22] VITALS (41 sets, daily range): BP systolic 68–193; BP diastolic 42–108
[2020-06-22] MEDS: LEVETIRACETAM 500MG PREMIX 100 ML IV SCH ×3 (00:05→21:43)
[2020-06-22] MEDS: MIDAZOLAM HCL 100 MG in SODIUM CHLORIDE 0.9% 100 ML IV PRN (01:25)
[2020-06-22] MEDS: METRONIDAZOLE 500 MG PREMIX 100 ML IV SCH ×3 (01:45→17:40)
[2020-06-22 02:15] LABS: HEMATOCRIT. 37.4 % (42.0-52.0); HEMOGLOBIN. 12.9 g/dL (14.0-18.0); RED BLOOD CELL COUNT 3.69 mill/uL (4.7-6.1)
[2020-06-22 02:16] LABS: BASOPHILS % 0.7 % (0.0-2.0); EOSINOPHILS % 0.1 % (0.0-5.0); LYMPHOCYTES % 28.3 % (20.0-50.0); MEAN CORPUSCULAR HEMOGLOBIN 34.9 pg (28.0-32.0); MEAN CORPUSCULAR VOLUME 101.6 fL (80.0-94.0); MEAN PLATELET VOLUME 10.2 fl (7.4-10.4); MONOCYTES % 6.6 % (2.0-8.0); NEUTROPHILS % 64.3 % (40.0-76.0); PLATELET 65 x1000/uL (130-400); RED CELL DISTRIBUTION WIDTH 18.5 % (11.6-14.6)
[2020-06-22] MEDS: LACTULOSE 20G/30ML UDC PO SCH ×4 (04:53→21:43)
[2020-06-22 06:08] LABS: BASOPHILS % 0.2 % (0.0-2.0); EOSINOPHILS % 0.1 % (0.0-5.0); HEMATOCRIT. 32.6 % (42.0-52.0); HEMOGLOBIN. 11.1 g/dL (14.0-18.0); LYMPHOCYTES % 34.7 % (20.0-50.0); MEAN CORPUSCULAR HEMOGLOBIN 34.3 pg (28.0-32.0); MEAN CORPUSCULAR VOLUME 100.4 fL (80.0-94.0); MEAN PLATELET VOLUME 10.4 fl (7.4-10.4); MONOCYTES % 5.5 % (2.0-8.0); NEUTROPHILS % 59.5 % (40.0-76.0); RED BLOOD CELL COUNT 3.25 mill/uL (4.7-6.1); RED CELL DISTRIBUTION WIDTH 18.2 % (11.6-14.6)
[2020-06-22 06:17] LABS: CHLORIDE 103 mEq/L (98-107)
[2020-06-22] MEDS: SPIRONOLACTONE 50MG TABLET PO SCH (06:30)
[2020-06-22 06:46] LABS: PLATELET 40 x1000/uL (130-400)
[2020-06-22 07:42] LABS: INR 1.6; PROTHROMBIN TIME 16.2 sec (9.6-11.0)
[2020-06-22 08:16] LABS: BG BASE EXCESS -1.8 mmol/L (-2.0-2.0); BG CARBOXYHEMOGLOBIN 0.5 % (0.5-1.5); BG DEOXYHEMOGLOBIN 1.9 % (0.0-5.0); BG HCO3 ACT 21.4 mmol/L (22.0-26.0); BG METHEMOGLOBIN 0.3 % (0.0-1.5); BG OXYGEN SATURATION 98.1 % (92.0-98.5); BG OXYHEMOGLOBIN 97.3 % (94.0-97.0); BG PCO2 31.4 mmHg (35.0-45.0); BG PH 7.452 (7.350-7.450); BG PO2 108.1 mmHg (75.0-100.0); BG SAMPLE SITE RIGHT BRACHIAL; BG TOTAL HEMOGLOBIN 11.4 g/dL (12.0-18.0); BG VENT MODE VENT - AC
[2020-06-22] MEDS: NOREPINEPHRINE 32 MG in DEXT 5% WATER 218 ML IV PRN (08:18)
[2020-06-22] MEDS: IPRATROPIUM/ALBUTEROL 0.5-3(2.5)MG/3ML NEB HHN PRN ×2 (08:33→21:29)
[2020-06-22] MEDS: PANTOPRAZOLE SODIUM 40 MG/VIAL IV SCH ×2 (08:51→17:43)
[2020-06-22] MEDS: DEXAMETHASONE 10 MG/ML VIAL IV SCH (08:51)
[2020-06-22] MEDS: THIAMINE HCL 100MG TABLET PO SCH (08:51)
[2020-06-22] MEDS: FUROSEMIDE 40MG TABLET PO SCH (08:51)
[2020-06-22] MEDS: PROPRANOLOL HCL 10MG TABLET PO SCH ×2 (08:52→21:00)
[2020-06-22] MEDS: RIFAXIMIN 550 MG TABLET PO SCH ×2 (09:00→21:43)
[2020-06-22] MEDS: SUCRALFATE 1G TABLET PO SCH ×2 (09:59→17:43)
[2020-06-22] MEDS: MULTIVITAMINS,THER W-MINERALS TABLET PO SCH (09:59)
[2020-06-22] MEDS: FOLIC ACID 1MG TABLET PO SCH (09:59)
[2020-06-22 15:56] LABS: HEMATOCRIT 33.4 % (42.0-52.0); HEMOGLOBIN 11.2 g/dL (14.0-18.0)
[2020-06-22] MEDS: CEFTRIAXONE 1,000 MG in DEXTROSE 5% WATER 50 ML IV SCH (17:40)
[2020-06-22] MEDS: SODIUM CHLORIDE 0.9% 1,000 ML IV SCH (17:44)
[2020-06-22] MEDS ORDERED: KCL 20MEQ/100ML PREMIX 100 ML IV NR (18:00)
[2020-06-22] MEDS ORDERED: ATROPINE SULFATE 1MG/10ML SYR IV PRN (20:45)
[2020-06-23] VITALS (91 sets, daily range): BP systolic 63–217; BP diastolic 38–122
[2020-06-23] MEDS: MIDAZOLAM HCL 100 MG in SODIUM CHLORIDE 0.9% 100 ML IV PRN (00:27)
[2020-06-23] MEDS: IPRATROPIUM/ALBUTEROL 0.5-3(2.5)MG/3ML NEB HHN PRN ×4 (00:59→21:12)
[2020-06-23 01:02] LABS: HEMATOCRIT. 32.8 % (42.0-52.0); HEMOGLOBIN. 10.9 g/dL (14.0-18.0); LYMPHOCYTES % 35.4 % (20.0-50.0); MEAN CORPUSCULAR HEMOGLOBIN 34.1 pg (28.0-32.0); MEAN CORPUSCULAR VOLUME 102.3 fL (80.0-94.0); MEAN PLATELET VOLUME 10.3 fl (7.4-10.4); MONOCYTES % 12.3 % (2.0-8.0); NEUTROPHILS % 52.3 % (40.0-76.0); PLATELET 57 x1000/uL (130-400); RED BLOOD CELL COUNT 3.21 mill/uL (4.7-6.1); RED CELL DISTRIBUTION WIDTH 18.3 % (11.6-14.6)
[2020-06-23] MEDS: METRONIDAZOLE 500 MG PREMIX 100 ML IV SCH ×3 (02:46→18:02)
[2020-06-23] MEDS: OCTREOTIDE 1,000 MCG in SODIUM CHLORIDE 0.9% 100 ML IV PRN ×2 (03:34→06:28)
[2020-06-23] MEDS ORDERED: OCTREOTIDE 1,000 MCG in SODIUM CHLORIDE 0.9% 100 ML IV SCH (06:00)
[2020-06-23 06:26] LABS: HEMATOCRIT. 31.6 % (42.0-52.0); HEMOGLOBIN. 10.6 g/dL (14.0-18.0); MEAN CORPUSCULAR HEMOGLOBIN 34.4 pg (28.0-32.0); MEAN CORPUSCULAR VOLUME 102.7 fL (80.0-94.0); MEAN PLATELET VOLUME 11.1 fl (7.4-10.4); PLATELET 61 x1000/uL (130-400); RED BLOOD CELL COUNT 3.08 mill/uL (4.7-6.1); RED CELL DISTRIBUTION WIDTH 18.1 % (11.6-14.6)
[2020-06-23] MEDS: LACTULOSE 20G/30ML UDC PO SCH ×3 (06:26→20:41)
[2020-06-23] MEDS: SODIUM CHLORIDE 0.9% 1,000 ML IV SCH ×2 (06:27→18:00)
[2020-06-23] MEDS: SPIRONOLACTONE 50MG TABLET PO SCH (06:30)
[2020-06-23 06:40] LABS: CHLORIDE 108 mEq/L (98-107)
[2020-06-23 06:41] LABS: INR 1.6; PROTHROMBIN TIME 16.8 sec (9.6-11.0)
[2020-06-23 07:42] LABS: PLATELET ESTIMATE DECREASED
[2020-06-23] MEDS: FUROSEMIDE 40MG TABLET PO SCH (08:59)
[2020-06-23] MEDS: SUCRALFATE 1G TABLET PO SCH ×2 (08:59→18:01)
[2020-06-23] MEDS: PANTOPRAZOLE SODIUM 40 MG/VIAL IV SCH ×2 (08:59→18:01)
[2020-06-23] MEDS ORDERED: PHYTONADIONE 10MG/ML AMP SUBCUT SCH (09:00)
[2020-06-23] MEDS: PROPRANOLOL HCL 10MG TABLET PO SCH ×2 (09:00→20:40)
[2020-06-23] MEDS: FOLIC ACID 1MG TABLET PO SCH (09:05)
[2020-06-23] MEDS: DEXAMETHASONE 10 MG/ML VIAL IV SCH (09:05)
[2020-06-23] MEDS: MULTIVITAMINS,THER W-MINERALS TABLET PO SCH (09:05)
[2020-06-23] MEDS: RIFAXIMIN 550 MG TABLET PO SCH ×2 (09:09→20:40)
[2020-06-23] MEDS: THIAMINE HCL 100MG TABLET PO SCH (09:11)
[2020-06-23] MEDS: LEVETIRACETAM 500MG PREMIX 100 ML IV SCH ×2 (09:33→20:40)
[2020-06-23 10:13] LABS: BG BASE EXCESS -4.3 mmol/L (-2.0-2.0); BG CARBOXYHEMOGLOBIN 0.3 % (0.5-1.5); BG DEOXYHEMOGLOBIN 2.6 % (0.0-5.0); BG FRACTION INSPIRED OXYGEN 35; BG HCO3 ACT 21.6 mmol/L (22.0-26.0); BG METHEMOGLOBIN 0.3 % (0.0-1.5); BG OXYGEN SATURATION 97.4 % (92.0-98.5); BG OXYHEMOGLOBIN 96.8 % (94.0-97.0); BG PCO2 42.8 mmHg (35.0-45.0); BG PH 7.321 (7.350-7.450); BG PO2 105.4 mmHg (75.0-100.0); BG SAMPLE SITE RIGHT RADIAL; BG TOTAL HEMOGLOBIN 10.4 g/dL (12.0-18.0); BG VENT MODE VENT - AC
[2020-06-23 12:54] LABS: BG BASE EXCESS -2.8 mmol/L (-2.0-2.0); BG CARBOXYHEMOGLOBIN 0.2 % (0.5-1.5); BG DEOXYHEMOGLOBIN 2.2 % (0.0-5.0); BG FRACTION INSPIRED OXYGEN 35; BG HCO3 ACT 25.4 mmol/L (22.0-26.0); BG METHEMOGLOBIN 0.3 % (0.0-1.5); BG OXYGEN SATURATION 97.8 % (92.0-98.5); BG OXYHEMOGLOBIN 97.3 % (94.0-97.0); BG PCO2 60.8 mmHg (35.0-45.0); BG PH 7.238 (7.350-7.450); BG PO2 127.9 mmHg (75.0-100.0); BG SAMPLE SITE RIGHT RADIAL; BG TOTAL HEMOGLOBIN 11.6 g/dL (12.0-18.0); BG VENT MODE VENT - CPAP
[2020-06-23 13:25] LABS: HEMATOCRIT. 33.1 % (42.0-52.0); HEMOGLOBIN. 11.1 g/dL (14.0-18.0); MEAN CORPUSCULAR HEMOGLOBIN 34.6 pg (28.0-32.0); MEAN CORPUSCULAR VOLUME 102.8 fL (80.0-94.0); MEAN PLATELET VOLUME 10.2 fl (7.4-10.4); MONOCYTES % 12.5 % (2.0-8.0); NEUTROPHILS % 77.5 % (40.0-76.0); PLATELET 54 x1000/uL (130-400); RED BLOOD CELL COUNT 3.22 mill/uL (4.7-6.1); RED CELL DISTRIBUTION WIDTH 17.9 % (11.6-14.6)
[2020-06-23] MEDS: NOREPINEPHRINE 32 MG in DEXT 5% WATER 218 ML IV PRN (15:48)
[2020-06-23] MEDS: CEFTRIAXONE 1,000 MG in DEXTROSE 5% WATER 50 ML IV SCH (17:42)
[2020-06-23 18:05] LABS: HEMATOCRIT. 33.8 % (42.0-52.0); MEAN CORPUSCULAR HEMOGLOBIN 33.8 pg (28.0-32.0); MEAN CORPUSCULAR VOLUME 103.9 fL (80.0-94.0); MEAN PLATELET VOLUME 10.9 fl (7.4-10.4); PLATELET 77 x1000/uL (130-400); RED BLOOD CELL COUNT 3.25 mill/uL (4.7-6.1); RED CELL DISTRIBUTION WIDTH 18.1 % (11.6-14.6)
[2020-06-23 20:09] LABS: PLATELET ESTIMATE DECREASED
[2020-06-24] VITALS (66 sets, daily range): BP systolic 82–152; BP diastolic 37–99
[2020-06-24 00:54] LABS: HEMATOCRIT. 32.6 % (42.0-52.0); HEMOGLOBIN. 10.9 g/dL (14.0-18.0); MEAN CORPUSCULAR HEMOGLOBIN 34.5 pg (28.0-32.0); MEAN CORPUSCULAR VOLUME 103.7 fL (80.0-94.0); MEAN PLATELET VOLUME 10.5 fl (7.4-10.4); PLATELET 75 x1000/uL (130-400); RED BLOOD CELL COUNT 3.15 mill/uL (4.7-6.1); RED CELL DISTRIBUTION WIDTH 17.8 % (11.6-14.6)
[2020-06-24 01:28] LABS: PLATELET ESTIMATE DECREASED
[2020-06-24] MEDS: METRONIDAZOLE 500 MG PREMIX 100 ML IV SCH ×3 (02:00→16:56)
[2020-06-24] MEDS: LACTULOSE 20G/30ML UDC PO SCH ×3 (06:38→21:26)
[2020-06-24 06:55] LABS: HEMATOCRIT. 32.2 % (42.0-52.0); HEMOGLOBIN. 10.7 g/dL (14.0-18.0); MEAN CORPUSCULAR HEMOGLOBIN 35.6 pg (28.0-32.0); MEAN CORPUSCULAR VOLUME 107.2 fL (80.0-94.0); MEAN PLATELET VOLUME 11.2 fl (7.4-10.4); RED CELL DISTRIBUTION WIDTH 18.1 % (11.6-14.6)
[2020-06-24 06:58] LABS: CHLORIDE 112 mEq/L (98-107)
[2020-06-24 07:04] LABS: PLATELET 35 x1000/uL (130-400)
[2020-06-24] MEDS: PROPRANOLOL HCL 10MG TABLET PO SCH ×2 (09:00→21:00)
[2020-06-24] MEDS: LEVETIRACETAM 500MG PREMIX 100 ML IV SCH ×2 (09:49→21:26)
[2020-06-24] MEDS: PANTOPRAZOLE SODIUM 40 MG/VIAL IV SCH ×2 (09:49→16:56)
[2020-06-24] MEDS: RIFAXIMIN 550 MG TABLET PO SCH ×2 (09:49→21:26)
[2020-06-24] MEDS: MULTIVITAMINS,THER W-MINERALS TABLET PO SCH (09:49)
[2020-06-24] MEDS: SUCRALFATE 1G TABLET PO SCH ×2 (09:49→16:55)
[2020-06-24] MEDS: DEXAMETHASONE 10 MG/ML VIAL IV SCH (09:49)
[2020-06-24] MEDS: THIAMINE HCL 100MG TABLET PO SCH (09:49)
[2020-06-24] MEDS: FOLIC ACID 1MG TABLET PO SCH (09:50)
[2020-06-24] MEDS: FUROSEMIDE 40MG TABLET PO SCH (09:50)
[2020-06-24 10:20] LABS: PLATELET ESTIMATE MARKEDLY DECREASED
[2020-06-24] MEDS: SODIUM CHLORIDE 0.9% 1,000 ML IV SCH ×2 (11:01→21:26)
[2020-06-24] MEDS: NOREPINEPHRINE 32 MG in DEXT 5% WATER 218 ML IV PRN (12:52)
[2020-06-24] MEDS: FENTANYL CITRATE/PF 2,500 MCG in SODIUM CHLORIDE 0.9% 200 ML IV PRN (12:53)
[2020-06-24] MEDS: SPIRONOLACTONE 50MG TABLET PO SCH (13:50)
[2020-06-24] MEDS: IPRATROPIUM/ALBUTEROL 0.5-3(2.5)MG/3ML NEB HHN PRN (14:01)
[2020-06-24 15:38] LABS: BG BASE EXCESS -0.1 mmol/L (-2.0-2.0); BG CARBOXYHEMOGLOBIN 0.3 % (0.5-1.5); BG DEOXYHEMOGLOBIN 1.7 % (0.0-5.0); BG FRACTION INSPIRED OXYGEN 35; BG HCO3 ACT 25.5 mmol/L (22.0-26.0); BG METHEMOGLOBIN 0.2 % (0.0-1.5); BG OXYGEN SATURATION 98.3 % (92.0-98.5); BG OXYHEMOGLOBIN 97.8 % (94.0-97.0); BG PCO2 45.5 mmHg (35.0-45.0); BG PH 7.366 (7.350-7.450); BG SAMPLE SITE RIGHT RADIAL; BG TOTAL HEMOGLOBIN 11.5 g/dL (12.0-18.0); BG TOTAL RESPIRATORY RATE 20 b/min; BG VENT MODE VENT - SIMV
[2020-06-24] MEDS: CEFTRIAXONE 1,000 MG in DEXTROSE 5% WATER 50 ML IV SCH (16:04)
[2020-06-24 20:51] LABS: BASOPHILS % 0.1 % (0.0-2.0); HEMATOCRIT. 33.8 % (42.0-52.0); HEMOGLOBIN. 11.2 g/dL (14.0-18.0); LYMPHOCYTES % 25.8 % (20.0-50.0); MEAN CORPUSCULAR HEMOGLOBIN 34.4 pg (28.0-32.0); MEAN CORPUSCULAR VOLUME 103.6 fL (80.0-94.0); MEAN PLATELET VOLUME 10.6 fl (7.4-10.4); MONOCYTES % 10.9 % (2.0-8.0); NEUTROPHILS % 63.2 % (40.0-76.0); PLATELET 75 x1000/uL (130-400); RED BLOOD CELL COUNT 3.26 mill/uL (4.7-6.1); RED CELL DISTRIBUTION WIDTH 17.4 % (11.6-14.6)
[2020-06-25] VITALS (68 sets, daily range): BP systolic 105–148; BP diastolic 55–83
[2020-06-25 00:35] LABS: BASOPHILS % 0.8 % (0.0-2.0); HEMATOCRIT. 34.8 % (42.0-52.0); HEMOGLOBIN. 11.4 g/dL (14.0-18.0); LYMPHOCYTES % 21.8 % (20.0-50.0); MEAN CORPUSCULAR HEMOGLOBIN 33.9 pg (28.0-32.0); MEAN CORPUSCULAR VOLUME 103.2 fL (80.0-94.0); MEAN PLATELET VOLUME 10.4 fl (7.4-10.4); MONOCYTES % 11.4 % (2.0-8.0); PLATELET 77 x1000/uL (130-400); RED BLOOD CELL COUNT 3.37 mill/uL (4.7-6.1); RED CELL DISTRIBUTION WIDTH 17.3 % (11.6-14.6)
[2020-06-25] MEDS: FENTANYL CITRATE/PF 2,500 MCG in SODIUM CHLORIDE 0.9% 200 ML IV PRN ×2 (02:29→17:04)
[2020-06-25] MEDS: METRONIDAZOLE 500 MG PREMIX 100 ML IV SCH ×3 (02:33→17:01)
[2020-06-25] MEDS: LACTULOSE 20G/30ML UDC PO SCH ×3 (05:41→21:10)
[2020-06-25 06:41] LABS: BASOPHILS % 0.1 % (0.0-2.0); HEMATOCRIT. 34.4 % (42.0-52.0); HEMOGLOBIN. 11.6 g/dL (14.0-18.0); LYMPHOCYTES % 24.3 % (20.0-50.0); MEAN CORPUSCULAR HEMOGLOBIN 34.7 pg (28.0-32.0); MEAN CORPUSCULAR VOLUME 103.1 fL (80.0-94.0); MEAN PLATELET VOLUME 9.9 fl (7.4-10.4); MONOCYTES % 12.6 % (2.0-8.0); PLATELET 74 x1000/uL (130-400); RED BLOOD CELL COUNT 3.34 mill/uL (4.7-6.1); RED CELL DISTRIBUTION WIDTH 17.9 % (11.6-14.6)
[2020-06-25] MEDS: SPIRONOLACTONE 50MG TABLET PO SCH (07:50)
[2020-06-25 07:58] LABS: BG BASE EXCESS 0.7 mmol/L (-2.0-2.0); BG CARBOXYHEMOGLOBIN 0.5 % (0.5-1.5); BG DEOXYHEMOGLOBIN 0.9 % (0.0-5.0); BG FRACTION INSPIRED OXYGEN 35; BG HCO3 ACT 26.3 mmol/L (22.0-26.0); BG METHEMOGLOBIN 0.3 % (0.0-1.5); BG OXYGEN SATURATION 99.1 % (92.0-98.5); BG OXYHEMOGLOBIN 98.3 % (94.0-97.0); BG PCO2 46.3 mmHg (35.0-45.0); BG PH 7.372 (7.350-7.450); BG PO2 162.1 mmHg (75.0-100.0); BG SAMPLE SITE RIGHT RADIAL; BG TOTAL HEMOGLOBIN 12.1 g/dL (12.0-18.0); BG VENT MODE VENT - SIMV
[2020-06-25] MEDS: MULTIVITAMINS,THER W-MINERALS TABLET PO SCH (09:00)
[2020-06-25] MEDS: PROPRANOLOL HCL 10MG TABLET PO SCH ×3 (09:00→21:09)
[2020-06-25] MEDS: PANTOPRAZOLE SODIUM 40 MG/VIAL IV SCH ×2 (09:27→17:01)
[2020-06-25] MEDS: LEVETIRACETAM 500MG PREMIX 100 ML IV SCH ×2 (09:28→21:10)
[2020-06-25] MEDS: DEXAMETHASONE 10 MG/ML VIAL IV SCH (09:29)
[2020-06-25] MEDS: FOLIC ACID 1MG TABLET PO SCH (10:59)
[2020-06-25] MEDS: FUROSEMIDE 40MG TABLET PO SCH (10:59)
[2020-06-25] MEDS: RIFAXIMIN 550 MG TABLET PO SCH ×2 (10:59→21:10)
[2020-06-25] MEDS: THIAMINE HCL 100MG TABLET PO SCH (10:59)
[2020-06-25] MEDS: SUCRALFATE 1G TABLET PO SCH ×2 (10:59→17:02)
[2020-06-25 11:06] LABS: BASOPHILS % 0.8 % (0.0-2.0); HEMATOCRIT. 33.9 % (42.0-52.0); HEMOGLOBIN. 11.3 g/dL (14.0-18.0); LYMPHOCYTES % 25.3 % (20.0-50.0); MEAN CORPUSCULAR HEMOGLOBIN 34.6 pg (28.0-32.0); MEAN CORPUSCULAR VOLUME 103.6 fL (80.0-94.0); MEAN PLATELET VOLUME 9.8 fl (7.4-10.4); MONOCYTES % 12.3 % (2.0-8.0); NEUTROPHILS % 61.6 % (40.0-76.0); PLATELET 77 x1000/uL (130-400); RED BLOOD CELL COUNT 3.27 mill/uL (4.7-6.1); RED CELL DISTRIBUTION WIDTH 17.7 % (11.6-14.6)
[2020-06-25] MEDS: SODIUM CHLORIDE 0.9% 1,000 ML IV SCH ×2 (13:33→19:40)
[2020-06-25] MEDS ORDERED: MIDAZOLAM 100MG/100ML PMX 100 ML IV PRN (15:30)
[2020-06-25] MEDS: CEFTRIAXONE 1,000 MG in DEXTROSE 5% WATER 50 ML IV SCH (17:01)
[2020-06-25 18:10] LABS: BASOPHILS % 0.6 % (0.0-2.0); EOSINOPHILS % 0.1 % (0.0-5.0); HEMATOCRIT. 33.4 % (42.0-52.0); HEMOGLOBIN. 11.2 g/dL (14.0-18.0); LYMPHOCYTES % 18.6 % (20.0-50.0); MEAN CORPUSCULAR HEMOGLOBIN 35.1 pg (28.0-32.0); MEAN CORPUSCULAR VOLUME 104.6 fL (80.0-94.0); MONOCYTES % 11.3 % (2.0-8.0); NEUTROPHILS % 69.4 % (40.0-76.0); RED CELL DISTRIBUTION WIDTH 17.3 % (11.6-14.6)
[2020-06-25 18:52] LABS: PLATELET 76 x1000/uL (130-400)
[2020-06-26] VITALS (90 sets, daily range): BP systolic 101–164; BP diastolic 49–77
[2020-06-26] MEDS: METRONIDAZOLE 500 MG PREMIX 100 ML IV SCH ×3 (01:11→17:26)
[2020-06-26] MEDS: LACTULOSE 20G/30ML UDC PO SCH ×3 (05:36→21:49)
[2020-06-26 06:48] LABS: HEMATOCRIT. 34.9 % (42.0-52.0); HEMOGLOBIN. 11.8 g/dL (14.0-18.0); MEAN CORPUSCULAR HEMOGLOBIN 35.2 pg (28.0-32.0); MEAN CORPUSCULAR VOLUME 104.1 fL (80.0-94.0); RED BLOOD CELL COUNT 3.35 mill/uL (4.7-6.1)
[2020-06-26 07:02] LABS: CHLORIDE 113 mEq/L (98-107)
[2020-06-26] MEDS: RIFAXIMIN 550 MG TABLET PO SCH ×2 (08:28→21:48)
[2020-06-26] MEDS: PANTOPRAZOLE SODIUM 40 MG/VIAL IV SCH ×2 (08:28→17:26)
[2020-06-26] MEDS: DEXAMETHASONE 10 MG/ML VIAL IV SCH (08:28)
[2020-06-26] MEDS: THIAMINE HCL 100MG TABLET PO SCH (08:29)
[2020-06-26] MEDS: MULTIVITAMINS,THER W-MINERALS TABLET PO SCH (08:29)
[2020-06-26] MEDS: FUROSEMIDE 40MG TABLET PO SCH (08:29)
[2020-06-26] MEDS: SPIRONOLACTONE 50MG TABLET PO SCH (08:29)
[2020-06-26] MEDS: SUCRALFATE 1G TABLET PO SCH ×2 (08:29→17:26)
[2020-06-26] MEDS: PROPRANOLOL HCL 10MG TABLET PO SCH ×2 (08:29→21:55)
[2020-06-26] MEDS: LEVETIRACETAM 500MG PREMIX 100 ML IV SCH ×2 (08:30→20:14)
[2020-06-26] MEDS: FOLIC ACID 1MG TABLET PO SCH (08:30)
[2020-06-26] MEDS: SODIUM CHLORIDE 0.9% 1,000 ML IV SCH ×2 (08:31→20:24)
[2020-06-26] MEDS ORDERED: DEXTROSE 50% WATER 50ML SYRINGE IV PRN (10:00)
[2020-06-26 10:41] LABS: BG BASE EXCESS -0.2 mmol/L (-2.0-2.0); BG CARBOXYHEMOGLOBIN 0.8 % (0.5-1.5); BG DEOXYHEMOGLOBIN 0.9 % (0.0-5.0); BG FRACTION INSPIRED OXYGEN 35; BG HCO3 ACT 25.4 mmol/L (22.0-26.0); BG METHEMOGLOBIN 0.1 % (0.0-1.5); BG OXYGEN SATURATION 99.1 % (92.0-98.5); BG OXYHEMOGLOBIN 98.2 % (94.0-97.0); BG PCO2 45.3 mmHg (35.0-45.0); BG PH 7.366 (7.350-7.450); BG PO2 153.5 mmHg (75.0-100.0); BG SAMPLE SITE RIGHT RADIAL; BG TOTAL HEMOGLOBIN 12.2 g/dL (12.0-18.0); BG TOTAL RESPIRATORY RATE 18 b/min; BG VENT MODE VENT - SIMV
[2020-06-26] MEDS: BLOOD SUGAR DIAGNOSTIC STRIP TEST SCH ×3 (11:16→21:00)
[2020-06-26] MEDS: METOCLOPRAMIDE HCL 10MG/2ML VIAL IV SCH ×2 (11:17→17:26)
[2020-06-26] MEDS: INSULIN LISPRO 100 UNITS/ML SUBCUT SCH ×3 (11:18→22:04)
[2020-06-26 11:24] LABS: NUCLEATED RED BLOOD CELLS 3 /100 WBC; PLATELET ESTIMATE DECREASED
[2020-06-26 11:25] LABS: PLATELET 78 x1000/uL (130-400)
[2020-06-26] MEDS: DOCUSATE SODIUM SUGAR FREE 100MG/10ML UDC NG SCH (17:26)
[2020-06-26] MEDS: SENNOSIDES/DOCUSATE SOD 8.6/50MG TABLET NG SCH (21:54)
[2020-06-27] VITALS (74 sets, daily range): BP systolic 97–141; BP diastolic 48–91
[2020-06-27] MEDS: SODIUM CHLORIDE 0.9% 1,000 ML IV SCH ×3 (04:12→21:10)
[2020-06-27] MEDS: FENTANYL CITRATE/PF 2,500 MCG in SODIUM CHLORIDE 0.9% 200 ML IV PRN (04:12)
[2020-06-27] MEDS: LACTULOSE 20G/30ML UDC PO SCH ×3 (06:00→21:10)
[2020-06-27] MEDS: METOCLOPRAMIDE HCL 10MG/2ML VIAL IV SCH ×4 (06:00→17:00)
[2020-06-27 06:32] LABS: HEMATOCRIT. 33.7 % (42.0-52.0); HEMOGLOBIN. 11.4 g/dL (14.0-18.0); MEAN CORPUSCULAR HEMOGLOBIN 34.8 pg (28.0-32.0); MEAN CORPUSCULAR VOLUME 103.3 fL (80.0-94.0); RED BLOOD CELL COUNT 3.26 mill/uL (4.7-6.1); RED CELL DISTRIBUTION WIDTH 17.8 % (11.6-14.6)
[2020-06-27 06:50] LABS: CHLORIDE 113 mEq/L (98-107)
[2020-06-27] MEDS: DOCUSATE SODIUM SUGAR FREE 100MG/10ML UDC NG SCH (08:03)
[2020-06-27] MEDS: FUROSEMIDE 40MG TABLET PO SCH (08:03)
[2020-06-27] MEDS: MULTIVITAMINS,THER W-MINERALS TABLET PO SCH (08:03)
[2020-06-27] MEDS: LEVETIRACETAM 500MG PREMIX 100 ML IV SCH ×2 (08:03→21:09)
[2020-06-27] MEDS: PANTOPRAZOLE SODIUM 40 MG/VIAL IV SCH ×2 (08:03→16:58)
[2020-06-27] MEDS: SUCRALFATE 1G TABLET PO SCH ×2 (08:03→16:58)
[2020-06-27] MEDS: THIAMINE HCL 100MG TABLET PO SCH (08:04)
[2020-06-27] MEDS: FOLIC ACID 1MG TABLET PO SCH (08:04)
[2020-06-27] MEDS: SPIRONOLACTONE 50MG TABLET PO SCH (08:04)
[2020-06-27] MEDS: DEXAMETHASONE 10 MG/ML VIAL IV SCH (08:05)
[2020-06-27] MEDS: PROPRANOLOL HCL 10MG TABLET PO SCH ×2 (09:00→21:10)
[2020-06-27] MEDS: INSULIN LISPRO 100 UNITS/ML SUBCUT SCH ×2 (11:44→17:02)
[2020-06-27] MEDS: BLOOD SUGAR DIAGNOSTIC STRIP TEST SCH ×2 (12:36→17:00)
[2020-06-27 13:15] LABS: MEAN PLATELET VOLUME 9.9 fl (7.4-10.4); PLATELET 70 x1000/uL (130-400); PLATELET ESTIMATE DECREASED
[2020-06-27 15:24] LABS: BG BASE EXCESS -2.7 mmol/L (-2.0-2.0); BG CARBOXYHEMOGLOBIN 0.4 % (0.5-1.5); BG DEOXYHEMOGLOBIN 1.2 % (0.0-5.0); BG FRACTION INSPIRED OXYGEN 35; BG HCO3 ACT 22.8 mmol/L (22.0-26.0); BG METHEMOGLOBIN 0.3 % (0.0-1.5); BG OXYGEN SATURATION 98.8 % (92.0-98.5); BG OXYHEMOGLOBIN 98.1 % (94.0-97.0); BG PH 7.352 (7.350-7.450); BG PO2 146.7 mmHg (75.0-100.0); BG SAMPLE SITE RIGHT RADIAL; BG TOTAL HEMOGLOBIN 12.4 g/dL (12.0-18.0); BG VENT MODE VENT - SIMV
[2020-06-27] MEDS: LACTULOSE 20G/30ML UDC PO PRN ×2 (16:59→20:07)
[2020-06-27] MEDS ORDERED: LACTULOSE 20G/30ML UDC PO SCH (17:00)
[2020-06-27] MEDS: SENNOSIDES/DOCUSATE SOD 8.6/50MG TABLET NG SCH (21:09)
[2020-06-27] MEDS ORDERED: LACTULOSE 20G/30ML UDC PO PRN (23:30)
[2020-06-28] VITALS (56 sets, daily range): BP systolic 102–160; BP diastolic 53–98
[2020-06-28] MEDS: INSULIN LISPRO 100 UNITS/ML SUBCUT SCH ×4 (00:04→18:33)
[2020-06-28] MEDS: METOCLOPRAMIDE HCL 10MG/2ML VIAL IV SCH ×4 (00:04→18:32)
[2020-06-28] MEDS: BLOOD SUGAR DIAGNOSTIC STRIP TEST SCH ×4 (00:05→18:14)
[2020-06-28] MEDS: LACTULOSE 20G/30ML UDC PO SCH ×4 (05:46→21:15)
[2020-06-28] MEDS: SODIUM CHLORIDE 0.9% 1,000 ML IV SCH ×2 (05:57→10:36)
[2020-06-28 06:11] LABS: PROTHROMBIN TIME 20.3 sec (9.6-11.0)
[2020-06-28 07:18] LABS: HEMATOCRIT. 34.2 % (42.0-52.0); HEMOGLOBIN. 11.4 g/dL (14.0-18.0); MEAN CORPUSCULAR HEMOGLOBIN 34.5 pg (28.0-32.0); MEAN CORPUSCULAR VOLUME 103.7 fL (80.0-94.0); MEAN PLATELET VOLUME 9.9 fl (7.4-10.4); PLATELET 60 x1000/uL (130-400); RED CELL DISTRIBUTION WIDTH 18.4 % (11.6-14.6)
[2020-06-28] MEDS: SPIRONOLACTONE 50MG TABLET PO SCH (08:02)
[2020-06-28] MEDS: DEXAMETHASONE 10 MG/ML VIAL IV SCH (08:43)
[2020-06-28] MEDS: PANTOPRAZOLE SODIUM 40 MG/VIAL IV SCH ×2 (08:43→16:39)
[2020-06-28] MEDS: DOCUSATE SODIUM SUGAR FREE 100MG/10ML UDC NG SCH (08:44)
[2020-06-28] MEDS: MULTIVITAMINS,THER W-MINERALS TABLET PO SCH (08:45)
[2020-06-28] MEDS: THIAMINE HCL 100MG TABLET PO SCH (08:45)
[2020-06-28] MEDS: SUCRALFATE 1G TABLET PO SCH ×2 (08:45→16:39)
[2020-06-28] MEDS: LEVETIRACETAM 500MG PREMIX 100 ML IV SCH ×2 (08:45→21:14)
[2020-06-28] MEDS: PROPRANOLOL HCL 10MG TABLET PO SCH ×2 (08:46→21:15)
[2020-06-28] MEDS: FOLIC ACID 1MG TABLET PO SCH (08:46)
[2020-06-28] MEDS: FUROSEMIDE 40MG TABLET PO SCH (08:46)
[2020-06-28 10:42] LABS: PLATELET ESTIMATE DECREASED
[2020-06-28] MEDS ORDERED: PHYTONADIONE 10MG/ML AMP SUBCUT NR ×3 (11:30→18:00)
[2020-06-28] MEDS: DEXT 5%/0.45% NACL 1000ML 1,000 ML IV SCH (12:40)
[2020-06-28 13:37] LABS: CREATINE KINASE 669 IU/L (39-308)
[2020-06-28] MEDS ORDERED: DIAZEPAM 5 MG/ML 2ML CPJ ONE (14:43)
[2020-06-28] MEDS ORDERED: DIPHENHYDRAMINE 50MG/ML VIAL ONE (14:43)
[2020-06-28] MEDS ORDERED: MIDAZOLAM HCL 5 MG/5 ML VIAL ONE (14:43)
[2020-06-28] MEDS ORDERED: FENTANYL CITRATE/PF 50MCG/ML 2ML VIAL ONE (14:43)
[2020-06-28] MEDS ORDERED: MIDAZOLAM HCL 5 MG/5 ML VIAL IV PRN (15:00)
[2020-06-28] MEDS: SENNOSIDES/DOCUSATE SOD 8.6/50MG TABLET NG SCH (21:16)
[2020-06-28 23:04] LABS: BASOPHILS % 0.1 % (0.0-2.0); EOSINOPHILS % 0.1 % (0.0-5.0); HEMOGLOBIN. 10.2 g/dL (14.0-18.0); LYMPHOCYTES % 11.5 % (20.0-50.0); MEAN CORPUSCULAR HEMOGLOBIN 35.4 pg (28.0-32.0); MEAN CORPUSCULAR VOLUME 103.8 fL (80.0-94.0); MONOCYTES % 13.6 % (2.0-8.0); NEUTROPHILS % 74.7 % (40.0-76.0); RED BLOOD CELL COUNT 2.89 mill/uL (4.7-6.1)
[2020-06-28 23:14] LABS: INR 1.8; PROTHROMBIN TIME 18.7 sec (9.6-11.0)
[2020-06-28 23:20] LABS: MEAN PLATELET VOLUME 9.6 fl (7.4-10.4); PLATELET 52 x1000/uL (130-400)
[2020-06-29] VITALS (43 sets, daily range): BP systolic 93–146; BP diastolic 39–70
[2020-06-29] MEDS: METOCLOPRAMIDE HCL 10MG/2ML VIAL IV SCH ×4 (01:20→18:36)
[2020-06-29] MEDS: INSULIN LISPRO 100 UNITS/ML SUBCUT SCH ×6 (01:27→22:06)
[2020-06-29] MEDS ORDERED: PHYTONADIONE 10MG/ML AMP SUBCUT NR (06:00)
[2020-06-29] MEDS: LACTULOSE 20G/30ML UDC PO SCH ×3 (06:09→22:03)
[2020-06-29 06:49] LABS: CHLORIDE 109 mEq/L (98-107)
[2020-06-29 06:56] LABS: HEMATOCRIT. 30.7 % (42.0-52.0); HEMOGLOBIN. 10.4 g/dL (14.0-18.0); MEAN CORPUSCULAR HEMOGLOBIN 35.1 pg (28.0-32.0); MEAN CORPUSCULAR VOLUME 103.5 fL (80.0-94.0); MEAN PLATELET VOLUME 9.6 fl (7.4-10.4); PLATELET 65 x1000/uL (130-400); RED BLOOD CELL COUNT 2.96 mill/uL (4.7-6.1); RED CELL DISTRIBUTION WIDTH 18.3 % (11.6-14.6)
[2020-06-29] MEDS: BLOOD SUGAR DIAGNOSTIC STRIP TEST SCH ×6 (06:57→21:00)
[2020-06-29] MEDS: IPRATROPIUM/ALBUTEROL 0.5-3(2.5)MG/3ML NEB HHN PRN (08:30)
[2020-06-29] MEDS ORDERED: FUROSEMIDE 40MG/4ML VIAL IVP SCH (09:00)
[2020-06-29] MEDS: PROPRANOLOL HCL 10MG TABLET PO SCH (09:49)
[2020-06-29] MEDS: MULTIVITAMINS,THER W-MINERALS TABLET PO SCH (09:49)
[2020-06-29] MEDS: SUCRALFATE 1G TABLET PO SCH ×2 (09:49→18:36)
[2020-06-29] MEDS: FOLIC ACID 1MG TABLET PO SCH (09:50)
[2020-06-29] MEDS: THIAMINE HCL 100MG TABLET PO SCH (09:50)
[2020-06-29] MEDS: DOCUSATE SODIUM SUGAR FREE 100MG/10ML UDC NG SCH (09:51)
[2020-06-29] MEDS: PANTOPRAZOLE SODIUM 40 MG/VIAL IV SCH ×2 (09:51→18:36)
[2020-06-29] MEDS: LEVETIRACETAM 500MG PREMIX 100 ML IV SCH ×2 (09:51→22:03)
[2020-06-29] MEDS ORDERED: POTASSIUM CHLORIDE 20MEQ/PACKET PO NR (10:00)
[2020-06-29] MEDS: DEXT 5%/0.45% NACL 1000ML 1,000 ML IV SCH (10:12)
[2020-06-29] MEDS: FUROSEMIDE 40MG/4ML VIAL IVP SCH (11:02)
[2020-06-29 11:12] LABS: PLATELET ESTIMATE DECREASED
[2020-06-29] MEDS ORDERED: DEXTROSE 50% WATER 50ML SYRINGE IV PRN (13:15)
[2020-06-29 18:18] LABS: BG BASE EXCESS 4.6 mmol/L (-2.0-2.0); BG CARBOXYHEMOGLOBIN 0.6 % (0.5-1.5); BG DEOXYHEMOGLOBIN 1.2 % (0.0-5.0); BG HCO3 ACT 28.7 mmol/L (22.0-26.0); BG METHEMOGLOBIN 0.4 % (0.0-1.5); BG OXYGEN SATURATION 98.8 % (92.0-98.5); BG OXYHEMOGLOBIN 97.8 % (94.0-97.0); BG PCO2 40.8 mmHg (35.0-45.0); BG PH 7.465 (7.350-7.450); BG PO2 140.8 mmHg (75.0-100.0); BG SAMPLE SITE RIGHT RADIAL; BG TOTAL HEMOGLOBIN 11.6 g/dL (12.0-18.0); BG TOTAL RESPIRATORY RATE 11 b/min; BG VENT MODE VENT - SIMV
[2020-06-29] MEDS: SENNOSIDES/DOCUSATE SOD 8.6/50MG TABLET NG SCH (22:03)
[2020-06-30] VITALS (52 sets, daily range): BP systolic 98–132; BP diastolic 43–68
[2020-06-30] MEDS: METOCLOPRAMIDE HCL 10MG/2ML VIAL IV SCH ×4 (01:20→17:25)
[2020-06-30] MEDS: LACTULOSE 20G/30ML UDC PO SCH ×3 (05:44→22:27)
[2020-06-30 06:28] LABS: HEMATOCRIT. 30.3 % (42.0-52.0); HEMOGLOBIN. 10.4 g/dL (14.0-18.0); MEAN CORPUSCULAR HEMOGLOBIN 35.5 pg (28.0-32.0); MEAN CORPUSCULAR VOLUME 103.6 fL (80.0-94.0); MEAN PLATELET VOLUME 9.9 fl (7.4-10.4); RED BLOOD CELL COUNT 2.93 mill/uL (4.7-6.1); RED CELL DISTRIBUTION WIDTH 18.6 % (11.6-14.6)
[2020-06-30 06:33] LABS: CHLORIDE 108 mEq/L (98-107)
[2020-06-30 06:43] LABS: PHOSPHORUS 2.6 mg/dL (2.5-4.9)
[2020-06-30] MEDS: MULTIVITAMINS,THER W-MINERALS TABLET PO SCH (08:30)
[2020-06-30] MEDS: FOLIC ACID 1MG TABLET PO SCH (08:30)
[2020-06-30] MEDS: THIAMINE HCL 100MG TABLET PO SCH (08:30)
[2020-06-30] MEDS: SUCRALFATE 1G TABLET PO SCH ×2 (08:30→17:25)
[2020-06-30] MEDS: PANTOPRAZOLE SODIUM 40 MG/VIAL IV SCH ×2 (08:30→17:25)
[2020-06-30] MEDS: DOCUSATE SODIUM SUGAR FREE 100MG/10ML UDC NG SCH (08:30)
[2020-06-30] MEDS: FUROSEMIDE 40MG/4ML VIAL IVP SCH (08:30)
[2020-06-30] MEDS: LEVETIRACETAM 500MG PREMIX 100 ML IV SCH ×2 (08:30→22:27)
[2020-06-30] MEDS: INSULIN LISPRO 100 UNITS/ML SUBCUT SCH ×4 (08:31→22:41)
[2020-06-30] MEDS: BLOOD SUGAR DIAGNOSTIC STRIP TEST SCH ×4 (08:31→21:00)
[2020-06-30 08:33] LABS: BG BASE EXCESS 2.9 mmol/L (-2.0-2.0); BG DEOXYHEMOGLOBIN 1.2 % (0.0-5.0); BG FRACTION INSPIRED OXYGEN 30; BG HCO3 ACT 26.4 mmol/L (22.0-26.0); BG METHEMOGLOBIN 0.2 % (0.0-1.5); BG OXYGEN SATURATION 98.8 % (92.0-98.5); BG OXYHEMOGLOBIN 97.6 % (94.0-97.0); BG PCO2 36.7 mmHg (35.0-45.0); BG PH 7.475 (7.350-7.450); BG PO2 135.1 mmHg (75.0-100.0); BG SAMPLE SITE RIGHT RADIAL; BG TOTAL HEMOGLOBIN 11.2 g/dL (12.0-18.0); BG VENT MODE VENT - SIMV
[2020-06-30] MEDS ORDERED: POTASSIUM CHLORIDE 20MEQ/PACKET PO SCH (11:30)
[2020-06-30 14:17] LABS: PLATELET ESTIMATE MARKEDLY DECREASED
[2020-06-30 14:18] LABS: PLATELET 47 x1000/uL (130-400)
[2020-06-30 16:29] LABS: BG BASE EXCESS 6.2 mmol/L (-2.0-2.0); BG CARBOXYHEMOGLOBIN 0.9 % (0.5-1.5); BG DEOXYHEMOGLOBIN 1.8 % (0.0-5.0); BG FRACTION INSPIRED OXYGEN 30; BG HCO3 ACT 30.9 mmol/L (22.0-26.0); BG METHEMOGLOBIN 0.2 % (0.0-1.5); BG OXYGEN SATURATION 98.2 % (92.0-98.5); BG OXYHEMOGLOBIN 97.1 % (94.0-97.0); BG PH 7.455 (7.350-7.450); BG PO2 112.5 mmHg (75.0-100.0); BG SAMPLE SITE RIGHT RADIAL; BG TOTAL HEMOGLOBIN 12.9 g/dL (12.0-18.0); BG VENT MODE VENT - SIMV
[2020-06-30] MEDS: IPRATROPIUM/ALBUTEROL 0.5-3(2.5)MG/3ML NEB HHN SCH (21:03)
[2020-06-30] MEDS: SENNOSIDES/DOCUSATE SOD 8.6/50MG TABLET NG SCH (22:26)
[2020-07-01] VITALS (23 sets, daily range): BP systolic 94–127; BP diastolic 43–65
[2020-07-01] MEDS: METOCLOPRAMIDE HCL 10MG/2ML VIAL IV SCH ×4 (00:27→18:10)
[2020-07-01 06:35] LABS: CHLORIDE 109 mEq/L (98-107)
[2020-07-01 06:38] LABS: INR 1.9; PROTHROMBIN TIME 19.7 sec (9.6-11.0)
[2020-07-01 06:39] LABS: BASOPHILS % 0.4 % (0.0-2.0); EOSINOPHILS % 0.4 % (0.0-5.0); HEMATOCRIT. 32.1 % (42.0-52.0); HEMOGLOBIN. 10.7 g/dL (14.0-18.0); LYMPHOCYTES % 7.2 % (20.0-50.0); MEAN CORPUSCULAR HEMOGLOBIN 34.9 pg (28.0-32.0); MEAN CORPUSCULAR VOLUME 104.8 fL (80.0-94.0); MEAN PLATELET VOLUME 9.6 fl (7.4-10.4); MONOCYTES % 16.8 % (2.0-8.0); NEUTROPHILS % 75.2 % (40.0-76.0); RED BLOOD CELL COUNT 3.06 mill/uL (4.7-6.1); RED CELL DISTRIBUTION WIDTH 18.7 % (11.6-14.6)
[2020-07-01] MEDS: BLOOD SUGAR DIAGNOSTIC STRIP TEST SCH ×3 (06:40→18:09)
[2020-07-01 06:42] LABS: PHOSPHORUS 3.4 mg/dL (2.5-4.9)
[2020-07-01] MEDS: INSULIN LISPRO 100 UNITS/ML SUBCUT SCH ×3 (06:46→18:13)
[2020-07-01] MEDS: LACTULOSE 20G/30ML UDC PO SCH ×3 (06:46→21:03)
[2020-07-01 07:28] LABS: PLATELET 49 x1000/uL (130-400)
[2020-07-01] MEDS: LEVETIRACETAM 500MG PREMIX 100 ML IV SCH ×2 (07:55→21:04)
[2020-07-01] MEDS: DOCUSATE SODIUM SUGAR FREE 100MG/10ML UDC NG SCH (07:56)
[2020-07-01] MEDS: MULTIVITAMINS,THER W-MINERALS TABLET PO SCH (07:57)
[2020-07-01] MEDS: THIAMINE HCL 100MG TABLET PO SCH (07:57)
[2020-07-01] MEDS: FUROSEMIDE 40MG/4ML VIAL IVP SCH (07:57)
[2020-07-01] MEDS: SUCRALFATE 1G TABLET PO SCH ×2 (07:57→16:01)
[2020-07-01] MEDS: FOLIC ACID 1MG TABLET PO SCH (07:57)
[2020-07-01] MEDS: PANTOPRAZOLE SODIUM 40 MG/VIAL IV SCH ×2 (07:58→16:02)
[2020-07-01 10:15] LABS: PLATELET ESTIMATE MARKEDLY DECREASED
[2020-07-01 12:27] LABS: BG BASE EXCESS 4.5 mmol/L (-2.0-2.0); BG CARBOXYHEMOGLOBIN 0.3 % (0.5-1.5); BG DEOXYHEMOGLOBIN 2.2 % (0.0-5.0); BG FRACTION INSPIRED OXYGEN 30; BG HCO3 ACT 29.1 mmol/L (22.0-26.0); BG METHEMOGLOBIN 0.1 % (0.0-1.5); BG OXYGEN SATURATION 97.8 % (92.0-98.5); BG OXYHEMOGLOBIN 97.4 % (94.0-97.0); BG PCO2 43.5 mmHg (35.0-45.0); BG PH 7.444 (7.350-7.450); BG PO2 107.6 mmHg (75.0-100.0); BG SAMPLE SITE RIGHT RADIAL; BG TOTAL HEMOGLOBIN 11.2 g/dL (12.0-18.0); BG VENT MODE VENT - CPAP
[2020-07-01] MEDS: IPRATROPIUM/ALBUTEROL 0.5-3(2.5)MG/3ML NEB HHN SCH (20:54)
[2020-07-01] MEDS: SENNOSIDES/DOCUSATE SOD 8.6/50MG TABLET NG SCH (21:06)
[2020-07-02] VITALS (82 sets, daily range): BP systolic 83–123; BP diastolic 34–63
[2020-07-02] MEDS: BLOOD SUGAR DIAGNOSTIC STRIP TEST SCH ×4 (00:21→18:00)
[2020-07-02] MEDS: METOCLOPRAMIDE HCL 10MG/2ML VIAL IV SCH ×4 (00:21→17:19)
[2020-07-02] MEDS: INSULIN LISPRO 100 UNITS/ML SUBCUT SCH ×4 (00:39→17:24)
[2020-07-02 06:23] LABS: HEMATOCRIT. 32.4 % (42.0-52.0); HEMOGLOBIN. 10.6 g/dL (14.0-18.0); MEAN CORPUSCULAR HEMOGLOBIN 33.8 pg (28.0-32.0); MEAN CORPUSCULAR VOLUME 103.4 fL (80.0-94.0); MEAN PLATELET VOLUME 9.8 fl (7.4-10.4); RED BLOOD CELL COUNT 3.13 mill/uL (4.7-6.1); RED CELL DISTRIBUTION WIDTH 18.9 % (11.6-14.6)
[2020-07-02 06:32] LABS: CHLORIDE 109 mEq/L (98-107)
[2020-07-02 06:45] LABS: PLATELET 46 x1000/uL (130-400)
[2020-07-02] MEDS: LACTULOSE 20G/30ML UDC PO SCH (07:12)
[2020-07-02] MEDS: IPRATROPIUM/ALBUTEROL 0.5-3(2.5)MG/3ML NEB HHN SCH ×2 (07:50→21:41)
[2020-07-02 08:08] LABS: PLATELET ESTIMATE MARKEDLY DECREASED
[2020-07-02] MEDS: LEVETIRACETAM 500MG PREMIX 100 ML IV SCH ×2 (08:19→21:45)
[2020-07-02] MEDS: SUCRALFATE 1G TABLET PO SCH ×2 (08:21→17:19)
[2020-07-02] MEDS: FUROSEMIDE 40MG/4ML VIAL IVP SCH (08:21)
[2020-07-02] MEDS: MULTIVITAMINS,THER W-MINERALS TABLET PO SCH (08:21)
[2020-07-02] MEDS: PANTOPRAZOLE SODIUM 40 MG/VIAL IV SCH ×2 (08:21→17:25)
[2020-07-02] MEDS: THIAMINE HCL 100MG TABLET PO SCH (08:21)
[2020-07-02] MEDS: DOCUSATE SODIUM SUGAR FREE 100MG/10ML UDC NG SCH (08:21)
[2020-07-02] MEDS: FOLIC ACID 1MG TABLET PO SCH (08:21)
[2020-07-02 11:10] LABS: BG BASE EXCESS 5.2 mmol/L (-2.0-2.0); BG CARBOXYHEMOGLOBIN 0.4 % (0.5-1.5); BG DEOXYHEMOGLOBIN 1.9 % (0.0-5.0); BG FRACTION INSPIRED OXYGEN 30; BG HCO3 ACT 29.6 mmol/L (22.0-26.0); BG METHEMOGLOBIN 0.3 % (0.0-1.5); BG OXYGEN SATURATION 98.1 % (92.0-98.5); BG OXYHEMOGLOBIN 97.4 % (94.0-97.0); BG PCO2 42.8 mmHg (35.0-45.0); BG PH 7.458 (7.350-7.450); BG PO2 114.5 mmHg (75.0-100.0); BG SAMPLE SITE LEFT RADIAL; BG TOTAL HEMOGLOBIN 10.9 g/dL (12.0-18.0); BG VENT MODE VENT - CPAP
[2020-07-02] MEDS: MORPHINE SULFATE 2 MG/ML CPJ (NOT FOR IM USE) IV PRN (11:11)
[2020-07-02 13:20] LABS: CLARITY URINE CLEAR (CLEAR); COLOR URINE DARK YELLOW (YELLOW); KETONES URINE NEGATIVE (NEGATIVE); LEUKOCYTE ESTERASE URINE TRACE (NEGATIVE); NITRITE URINE NEGATIVE (NEGATIVE); OCCULT BLOOD URINE 2+ (NEGATIVE); PH URINE 6.5 (4.5-8.0); PROTEIN URINE NEGATIVE (NEGATIVE); SPECIFIC GRAVITY URINE 1.016 (1.005-1.030); UROBILINOGEN URINE 0.2 E.U./dL (0.2-1.0)
[2020-07-03] VITALS (43 sets, daily range): BP systolic 95–122; BP diastolic 43–63
[2020-07-03] MEDS: METOCLOPRAMIDE HCL 10MG/2ML VIAL IV SCH ×4 (00:31→17:40)
[2020-07-03] MEDS: BLOOD SUGAR DIAGNOSTIC STRIP TEST SCH ×4 (00:31→17:25)
[2020-07-03] MEDS: INSULIN LISPRO 100 UNITS/ML SUBCUT SCH ×4 (00:36→17:42)
[2020-07-03 05:46] LABS: CHLORIDE 110 mEq/L (98-107)
[2020-07-03 05:47] LABS: HEMATOCRIT. 30.3 % (42.0-52.0); HEMOGLOBIN. 10.1 g/dL (14.0-18.0); MEAN CORPUSCULAR HEMOGLOBIN 34.8 pg (28.0-32.0); RED BLOOD CELL COUNT 2.91 mill/uL (4.7-6.1); RED CELL DISTRIBUTION WIDTH 18.9 % (11.6-14.6)
[2020-07-03 05:52] LABS: PHOSPHORUS 3.3 mg/dL (2.5-4.9)
[2020-07-03 06:26] LABS: PLATELET 47 x1000/uL (130-400)
[2020-07-03] MEDS: IPRATROPIUM/ALBUTEROL 0.5-3(2.5)MG/3ML NEB HHN SCH ×2 (08:34→20:52)
[2020-07-03] MEDS: FUROSEMIDE 40MG/4ML VIAL IVP SCH (09:02)
[2020-07-03] MEDS: LACTULOSE 20G/30ML UDC PO SCH (09:02)
[2020-07-03] MEDS: PANTOPRAZOLE SODIUM 40 MG/VIAL IV SCH ×2 (09:02→17:40)
[2020-07-03] MEDS: MULTIVITAMINS,THER W-MINERALS TABLET PO SCH (09:02)
[2020-07-03] MEDS: FOLIC ACID 1MG TABLET PO SCH (09:03)
[2020-07-03] MEDS: SUCRALFATE 1G TABLET PO SCH ×2 (09:03→17:00)
[2020-07-03] MEDS: LEVETIRACETAM 500MG PREMIX 100 ML IV SCH ×2 (09:03→21:16)
[2020-07-03] MEDS: THIAMINE HCL 100MG TABLET PO SCH (09:03)
[2020-07-03] MEDS ORDERED: SODIUM CHLORIDE 0.9% 500 ML IV SCH (12:15)
[2020-07-03 12:46] LABS: PLATELET ESTIMATE MARKEDLY DECREASED
[2020-07-03 13:35] LABS: BG BASE EXCESS 6.4 mmol/L (-2.0-2.0); BG CARBOXYHEMOGLOBIN 0.3 % (0.5-1.5); BG HCO3 ACT 31.2 mmol/L (22.0-26.0); BG METHEMOGLOBIN 0.2 % (0.0-1.5); BG OXYHEMOGLOBIN 96.5 % (94.0-97.0); BG PCO2 45.8 mmHg (35.0-45.0); BG PH 7.451 (7.350-7.450); BG PO2 98.8 mmHg (75.0-100.0); BG SAMPLE SITE RIGHT RADIAL; BG TOTAL HEMOGLOBIN 10.4 g/dL (12.0-18.0); BG VENT MODE VENT - CPAP
[2020-07-04] VITALS (19 sets, daily range): BP systolic 106–148; BP diastolic 36–66
[2020-07-04] MEDS: BLOOD SUGAR DIAGNOSTIC STRIP TEST SCH ×4 (00:26→18:00)
[2020-07-04] MEDS: METOCLOPRAMIDE HCL 10MG/2ML VIAL IV SCH ×5 (00:29→23:29)
[2020-07-04 06:03] LABS: HEMATOCRIT. 30.9 % (42.0-52.0); HEMOGLOBIN. 10.2 g/dL (14.0-18.0); MEAN CORPUSCULAR HEMOGLOBIN 34.4 pg (28.0-32.0); MEAN CORPUSCULAR VOLUME 104.2 fL (80.0-94.0); MEAN PLATELET VOLUME 10.5 fl (7.4-10.4); RED BLOOD CELL COUNT 2.97 mill/uL (4.7-6.1); RED CELL DISTRIBUTION WIDTH 18.6 % (11.6-14.6)
[2020-07-04] MEDS: INSULIN LISPRO 100 UNITS/ML SUBCUT SCH ×5 (06:23→23:30)
[2020-07-04 06:25] LABS: CHLORIDE 110 mEq/L (98-107)
[2020-07-04 06:27] LABS: PLATELET 48 x1000/uL (130-400)
[2020-07-04] MEDS: IPRATROPIUM/ALBUTEROL 0.5-3(2.5)MG/3ML NEB HHN SCH (07:58)
[2020-07-04] MEDS ORDERED: ALBUMIN HUMAN 25GM/100ML (25%) IV NR (08:30)
[2020-07-04] MEDS: MULTIVITAMINS,THER W-MINERALS TABLET PO SCH (08:36)
[2020-07-04] MEDS: FOLIC ACID 1MG TABLET PO SCH (08:36)
[2020-07-04] MEDS: PANTOPRAZOLE SODIUM 40 MG/VIAL IV SCH ×2 (08:36→16:52)
[2020-07-04] MEDS: SUCRALFATE 1G TABLET PO SCH ×2 (08:37→17:27)
[2020-07-04] MEDS: THIAMINE HCL 100MG TABLET PO SCH (08:37)
[2020-07-04] MEDS: LEVETIRACETAM 500MG PREMIX 100 ML IV SCH ×2 (08:49→22:48)
[2020-07-04] MEDS: LACTULOSE 20G/30ML UDC PO SCH (09:00)
[2020-07-04] MEDS ORDERED: FUROSEMIDE 40MG/4ML VIAL IVP SCH (09:00)
[2020-07-04 11:20] LABS: NUCLEATED RED BLOOD CELLS 2 /100 WBC
[2020-07-04 11:21] LABS: PLATELET ESTIMATE MARKEDLY DECREASED
[2020-07-05] VITALS (8 sets, daily range): BP systolic 106–140; BP diastolic 50–82
[2020-07-05] MEDS: MORPHINE SULFATE 2 MG/ML CPJ (NOT FOR IM USE) IV PRN ×3 (03:09→21:02)
[2020-07-05] MEDS: INSULIN LISPRO 100 UNITS/ML SUBCUT SCH ×3 (06:00→18:00)
[2020-07-05] MEDS: METOCLOPRAMIDE HCL 10MG/2ML VIAL IV SCH ×4 (06:00→23:51)
[2020-07-05] MEDS: BLOOD SUGAR DIAGNOSTIC STRIP TEST SCH ×4 (06:00→18:00)
[2020-07-05 08:53] LABS: HEMATOCRIT. 30.5 % (42.0-52.0); HEMOGLOBIN. 10.2 g/dL (14.0-18.0); MEAN CORPUSCULAR HEMOGLOBIN 34.9 pg (28.0-32.0); MEAN CORPUSCULAR VOLUME 104.8 fL (80.0-94.0); RED BLOOD CELL COUNT 2.91 mill/uL (4.7-6.1); RED CELL DISTRIBUTION WIDTH 18.7 % (11.6-14.6)
[2020-07-05 09:07] LABS: CHLORIDE 109 mEq/L (98-107)
[2020-07-05] MEDS: PANTOPRAZOLE SODIUM 40 MG/VIAL IV SCH ×2 (09:43→17:00)
[2020-07-05] MEDS: SUCRALFATE 1G TABLET PO SCH ×2 (09:43→17:00)
[2020-07-05] MEDS: THIAMINE HCL 100MG TABLET PO SCH (09:43)
[2020-07-05] MEDS: FOLIC ACID 1MG TABLET PO SCH (09:43)
[2020-07-05] MEDS: MULTIVITAMINS,THER W-MINERALS TABLET PO SCH (09:43)
[2020-07-05] MEDS: LACTULOSE 20G/30ML UDC PO SCH (09:44)
[2020-07-05] MEDS ORDERED: POTASSIUM CHLORIDE 20MEQ/PACKET PO NR (10:00)
[2020-07-05 13:37] LABS: NUCLEATED RED BLOOD CELLS 1 /100 WBC
[2020-07-05 13:38] LABS: PLATELET ESTIMATE MARKEDLY DECREASED
[2020-07-05 13:43] LABS: MEAN PLATELET VOLUME 10.4 fl (7.4-10.4); PLATELET 45 x1000/uL (130-400)
[2020-07-05] MEDS: LEVETIRACETAM 500MG PREMIX 100 ML IV SCH ×2 (16:19→23:51)
[2020-07-06] VITALS (23 sets, daily range): BP systolic 92–128; BP diastolic 36–70
[2020-07-06] MEDS: BLOOD SUGAR DIAGNOSTIC STRIP TEST SCH ×5 (00:05→23:31)
[2020-07-06] MEDS: INSULIN LISPRO 100 UNITS/ML SUBCUT SCH ×5 (00:13→23:31)
[2020-07-06] MEDS: METOCLOPRAMIDE HCL 10MG/2ML VIAL IV SCH ×4 (05:36→23:30)
[2020-07-06] MEDS: PANTOPRAZOLE SODIUM 40 MG/VIAL IV SCH ×2 (08:42→17:43)
[2020-07-06] MEDS: SUCRALFATE 1G TABLET PO SCH ×2 (08:43→17:43)
[2020-07-06] MEDS: MULTIVITAMINS,THER W-MINERALS TABLET PO SCH (08:43)
[2020-07-06] MEDS: LEVETIRACETAM 500MG PREMIX 100 ML IV SCH ×2 (08:43→20:23)
[2020-07-06] MEDS: LACTULOSE 20G/30ML UDC PO SCH (08:43)
[2020-07-06] MEDS: THIAMINE HCL 100MG TABLET PO SCH (08:43)
[2020-07-06] MEDS: FOLIC ACID 1MG TABLET PO SCH (08:43)
[2020-07-06] MEDS: DOCUSATE SODIUM 100MG CAPSULE PO PRN ×2 (08:43→17:43)
[2020-07-06] MEDS: MORPHINE SULFATE 2 MG/ML CPJ (NOT FOR IM USE) IV PRN (08:44)
[2020-07-06 12:14] LABS: BASOPHILS % 0.7 % (0.0-2.0); EOSINOPHILS % 1.2 % (0.0-5.0); HEMATOCRIT. 27.6 % (42.0-52.0); HEMOGLOBIN. 9.4 g/dL (14.0-18.0); LYMPHOCYTES % 15.9 % (20.0-50.0); MEAN CORPUSCULAR HEMOGLOBIN 35.9 pg (28.0-32.0); MEAN CORPUSCULAR VOLUME 105.1 fL (80.0-94.0); MEAN PLATELET VOLUME 10.4 fl (7.4-10.4); MONOCYTES % 23.3 % (2.0-8.0); NEUTROPHILS % 58.9 % (40.0-76.0); RED BLOOD CELL COUNT 2.62 mill/uL (4.7-6.1); RED CELL DISTRIBUTION WIDTH 18.2 % (11.6-14.6)
[2020-07-06 12:45] LABS: CHLORIDE 108 mEq/L (98-107)
[2020-07-06 12:51] LABS: PLATELET 42 x1000/uL (130-400)
[2020-07-06] MEDS: FUROSEMIDE 40MG TABLET PO SCH (12:54)
[2020-07-06 14:47] LABS: PLATELET ESTIMATE MARKEDLY DECREASED
[2020-07-07] VITALS (7 sets, daily range): BP systolic 101–139; BP diastolic 49–68
[2020-07-07] MEDS: METOCLOPRAMIDE HCL 10MG/2ML VIAL IV SCH ×3 (05:30→17:14)
[2020-07-07] MEDS: BLOOD SUGAR DIAGNOSTIC STRIP TEST SCH ×3 (05:37→17:14)
[2020-07-07] MEDS: INSULIN LISPRO 100 UNITS/ML SUBCUT SCH ×3 (05:37→17:24)
[2020-07-07 06:38] LABS: HEMOGLOBIN. 9.7 g/dL (14.0-18.0); MEAN CORPUSCULAR HEMOGLOBIN 35.7 pg (28.0-32.0); MEAN CORPUSCULAR VOLUME 103.6 fL (80.0-94.0); MEAN PLATELET VOLUME 9.8 fl (7.4-10.4); RED CELL DISTRIBUTION WIDTH 18.3 % (11.6-14.6)
[2020-07-07 06:44] LABS: PLATELET 40 x1000/uL (130-400)
[2020-07-07 06:45] LABS: CHLORIDE 108 mEq/L (98-107)
[2020-07-07] MEDS: PANTOPRAZOLE SODIUM 40 MG/VIAL IV SCH ×2 (10:14→17:14)
[2020-07-07] MEDS: FUROSEMIDE 40MG TABLET PO SCH (10:14)
[2020-07-07] MEDS: MULTIVITAMINS,THER W-MINERALS TABLET PO SCH (10:14)
[2020-07-07] MEDS: SUCRALFATE 1G TABLET PO SCH ×2 (10:14→17:14)
[2020-07-07] MEDS: LACTULOSE 20G/30ML UDC PO SCH (10:14)
[2020-07-07] MEDS: FOLIC ACID 1MG TABLET PO SCH (10:14)
[2020-07-07] MEDS: THIAMINE HCL 100MG TABLET PO SCH (10:14)
[2020-07-07] MEDS: LEVETIRACETAM 500MG PREMIX 100 ML IV SCH ×2 (10:15→21:43)
[2020-07-07 13:38] LABS: NUCLEATED RED BLOOD CELLS 1 /100 WBC; PLATELET ESTIMATE MARKEDLY DECREASED
[2020-07-08] MEDS: METOCLOPRAMIDE HCL 10MG/2ML VIAL IV SCH ×4 (00:10→17:28)
[2020-07-08] MEDS: BLOOD SUGAR DIAGNOSTIC STRIP TEST SCH ×4 (00:10→17:28)
[2020-07-08] MEDS: INSULIN LISPRO 100 UNITS/ML SUBCUT SCH ×4 (00:20→17:29)
[2020-07-08 07:15] LABS: CHLORIDE 101 mEq/L (98-107)
[2020-07-08 07:24] LABS: BASOPHILS % 0.4 % (0.0-2.0); EOSINOPHILS % 1.4 % (0.0-5.0); HEMATOCRIT. 27.9 % (42.0-52.0); HEMOGLOBIN. 9.4 g/dL (14.0-18.0); LYMPHOCYTES % 19.7 % (20.0-50.0); MEAN CORPUSCULAR HEMOGLOBIN 34.7 pg (28.0-32.0); MONOCYTES % 12.7 % (2.0-8.0); NEUTROPHILS % 65.8 % (40.0-76.0); RED BLOOD CELL COUNT 2.71 mill/uL (4.7-6.1); RED CELL DISTRIBUTION WIDTH 17.9 % (11.6-14.6)
[2020-07-08 07:56] LABS: PLATELET 39 x1000/uL (130-400)
[2020-07-08 08:00] VITALS: BP 121/57
[2020-07-08] MEDS: LEVETIRACETAM 500MG PREMIX 100 ML IV SCH ×2 (09:00→21:08)
[2020-07-08] MEDS: LACTULOSE 20G/30ML UDC PO SCH (09:00)
[2020-07-08] MEDS: FUROSEMIDE 40MG TABLET PO SCH (09:00)
[2020-07-08] MEDS: MULTIVITAMINS,THER W-MINERALS TABLET PO SCH (09:00)
[2020-07-08] MEDS: SUCRALFATE 1G TABLET PO SCH ×2 (09:00→11:11)
[2020-07-08] MEDS: FOLIC ACID 1MG TABLET PO SCH (09:00)
[2020-07-08] MEDS: PANTOPRAZOLE SODIUM 40 MG/VIAL IV SCH (09:01)
[2020-07-08] MEDS: THIAMINE HCL 100MG TABLET PO SCH (09:19)
[2020-07-08] MEDS ORDERED: POTASSIUM CHLORIDE 20MEQ TABLET SR PO SCH (10:00)
[2020-07-08 12:00] VITALS: BP 110/55
[2020-07-08 16:00] VITALS: BP 133/59
[2020-07-08] MEDS: OMEPRAZOLE 20MG CAPSULE EXTENDED RELEASE PO SCH (21:08)
[2020-07-09] MEDS: METOCLOPRAMIDE HCL 10MG/2ML VIAL IV SCH ×4 (00:49→17:11)
[2020-07-09] MEDS: INSULIN LISPRO 100 UNITS/ML SUBCUT SCH ×4 (06:00→17:16)
[2020-07-09] MEDS: BLOOD SUGAR DIAGNOSTIC STRIP TEST SCH ×4 (06:21→17:16)
[2020-07-09 07:08] LABS: CHLORIDE 103 mEq/L (98-107)
[2020-07-09 07:33] LABS: PHOSPHORUS 2.2 mg/dL (2.5-4.9)
[2020-07-09 07:45] LABS: BASOPHILS % 0.5 % (0.0-2.0); EOSINOPHILS % 1.7 % (0.0-5.0); HEMATOCRIT. 27.4 % (42.0-52.0); HEMOGLOBIN. 9.4 g/dL (14.0-18.0); LYMPHOCYTES % 17.1 % (20.0-50.0); MEAN CORPUSCULAR HEMOGLOBIN 35.1 pg (28.0-32.0); MEAN CORPUSCULAR VOLUME 102.8 fL (80.0-94.0); MONOCYTES % 13.8 % (2.0-8.0); NEUTROPHILS % 66.9 % (40.0-76.0); RED BLOOD CELL COUNT 2.67 mill/uL (4.7-6.1); RED CELL DISTRIBUTION WIDTH 18.4 % (11.6-14.6)
[2020-07-09 07:55] LABS: PLATELET 37 x1000/uL (130-400)
[2020-07-09 07:56] LABS: MEAN PLATELET VOLUME 9.8 fl (7.4-10.4)
[2020-07-09 08:00] VITALS: BP 143/70
[2020-07-09] MEDS: OMEPRAZOLE 20MG CAPSULE EXTENDED RELEASE PO SCH ×2 (08:25→21:08)
[2020-07-09] MEDS: LEVETIRACETAM 500MG PREMIX 100 ML IV SCH ×2 (08:25→21:08)
[2020-07-09] MEDS: MULTIVITAMINS,THER W-MINERALS TABLET PO SCH (08:26)
[2020-07-09] MEDS: LACTULOSE 20G/30ML UDC PO SCH (08:26)
[2020-07-09] MEDS: FUROSEMIDE 40MG TABLET PO SCH (08:26)
[2020-07-09] MEDS: FOLIC ACID 1MG TABLET PO SCH (08:26)
[2020-07-09] MEDS: THIAMINE HCL 100MG TABLET PO SCH (08:26)
[2020-07-09 12:01] VITALS: BP 123/61
[2020-07-09] MEDS ORDERED: MAGNESIUM 2 G PREMIX 50 ML IV NR (12:30)
[2020-07-09] MEDS ORDERED: SODIUM PHOS,M-BASIC-D-BASIC 20 MM in DEXT 5% WATER 243.3333 ML IV NR (12:30)
[2020-07-09 16:00] VITALS: BP 135/72
[2020-07-09] MEDS: FUROSEMIDE 40MG/4ML VIAL IVP SCH (17:20)
[2020-07-09 20:00] VITALS: BP 143/69
[2020-07-09 22:00] VITALS: BP 122/52
[2020-07-10] VITALS (8 sets, daily range): BP systolic 108–135; BP diastolic 52–64
[2020-07-10] MEDS: METOCLOPRAMIDE HCL 10MG/2ML VIAL IV SCH ×5 (00:12→23:41)
[2020-07-10] MEDS: INSULIN LISPRO 100 UNITS/ML SUBCUT SCH ×5 (00:17→23:42)
[2020-07-10] MEDS: BLOOD SUGAR DIAGNOSTIC STRIP TEST SCH ×5 (05:30→23:42)
[2020-07-10] MEDS: THIAMINE HCL 100MG TABLET PO SCH (08:11)
[2020-07-10] MEDS: FOLIC ACID 1MG TABLET PO SCH (08:11)
[2020-07-10] MEDS: OMEPRAZOLE 20MG CAPSULE EXTENDED RELEASE PO SCH ×2 (08:11→21:07)
[2020-07-10] MEDS: LEVETIRACETAM 500MG PREMIX 100 ML IV SCH ×2 (08:11→21:07)
[2020-07-10] MEDS: LACTULOSE 20G/30ML UDC PO SCH (08:11)
[2020-07-10] MEDS: FUROSEMIDE 40MG/4ML VIAL IVP SCH (08:12)
[2020-07-10] MEDS: MULTIVITAMINS,THER W-MINERALS TABLET PO SCH (08:12)
[2020-07-10 08:56] LABS: CHLORIDE 102 mEq/L (98-107)
[2020-07-10 09:01] LABS: PHOSPHORUS 2.4 mg/dL (2.5-4.9)
[2020-07-10 11:10] LABS: BASOPHILS % 0.5 % (0.0-2.0); EOSINOPHILS % 1.5 % (0.0-5.0); HEMATOCRIT. 30.1 % (42.0-52.0); HEMOGLOBIN. 10.2 g/dL (14.0-18.0); LYMPHOCYTES % 14.5 % (20.0-50.0); MEAN CORPUSCULAR HEMOGLOBIN 35.5 pg (28.0-32.0); MEAN CORPUSCULAR VOLUME 104.2 fL (80.0-94.0); MEAN PLATELET VOLUME 10.1 fl (7.4-10.4); MONOCYTES % 11.9 % (2.0-8.0); NEUTROPHILS % 71.6 % (40.0-76.0); RED BLOOD CELL COUNT 2.89 mill/uL (4.7-6.1); RED CELL DISTRIBUTION WIDTH 19.1 % (11.6-14.6)
[2020-07-10 11:16] LABS: PLATELET 40 x1000/uL (130-400)
[2020-07-10] MEDS ORDERED: MAGNESIUM 4 G PREMIX 100 ML IV NR (11:30)
[2020-07-10] MEDS ORDERED: POTASSIUM PHOS,M-BASIC-D-BASIC 30 MMOL in DEXT 5% WATER 500 ML IV ONE (12:00)
[2020-07-11] VITALS (8 sets, daily range): BP systolic 103–142; BP diastolic 46–67
[2020-07-11] MEDS: METOCLOPRAMIDE HCL 10MG/2ML VIAL IV SCH ×4 (05:08→23:21)
[2020-07-11] MEDS: BLOOD SUGAR DIAGNOSTIC STRIP TEST SCH ×3 (05:09→18:19)
[2020-07-11] MEDS: INSULIN LISPRO 100 UNITS/ML SUBCUT SCH ×4 (06:00→23:22)
[2020-07-11 08:23] LABS: BASOPHILS % 0.4 % (0.0-2.0); EOSINOPHILS % 1.4 % (0.0-5.0); HEMATOCRIT. 25.5 % (42.0-52.0); HEMOGLOBIN. 8.7 g/dL (14.0-18.0); LYMPHOCYTES % 18.9 % (20.0-50.0); MEAN CORPUSCULAR HEMOGLOBIN 35.5 pg (28.0-32.0); MEAN CORPUSCULAR VOLUME 103.8 fL (80.0-94.0); MEAN PLATELET VOLUME 9.6 fl (7.4-10.4); MONOCYTES % 14.3 % (2.0-8.0); RED BLOOD CELL COUNT 2.46 mill/uL (4.7-6.1); RED CELL DISTRIBUTION WIDTH 19.6 % (11.6-14.6)
[2020-07-11 08:41] LABS: CHLORIDE 99 mEq/L (98-107)
[2020-07-11] MEDS: FUROSEMIDE 40MG/4ML VIAL IVP SCH (09:42)
[2020-07-11] MEDS: OMEPRAZOLE 20MG CAPSULE EXTENDED RELEASE PO SCH ×2 (09:42→20:57)
[2020-07-11] MEDS: LACTULOSE 20G/30ML UDC PO SCH (09:42)
[2020-07-11] MEDS: MULTIVITAMINS,THER W-MINERALS TABLET PO SCH (09:42)
[2020-07-11] MEDS: THIAMINE HCL 100MG TABLET PO SCH (09:42)
[2020-07-11] MEDS: LEVETIRACETAM 500MG PREMIX 100 ML IV SCH ×2 (09:48→20:57)
[2020-07-11 10:05] LABS: PLATELET 36 x1000/uL (130-400)
[2020-07-11] MEDS: FOLIC ACID 1MG TABLET PO SCH (11:40)
[2020-07-11] MEDS ORDERED: POTASSIUM CHLORIDE 20MEQ/PACKET PO NR (11:45)
[2020-07-11] MEDS: RIFAXIMIN 550 MG TABLET PO SCH (20:57)
[2020-07-12] VITALS (7 sets, daily range): BP systolic 118–150; BP diastolic 58–66
[2020-07-12] MEDS: METOCLOPRAMIDE HCL 10MG/2ML VIAL IV SCH ×3 (05:05→17:27)
[2020-07-12 05:52] LABS: HEMATOCRIT. 26.6 % (42.0-52.0); HEMOGLOBIN. 9.1 g/dL (14.0-18.0); MEAN CORPUSCULAR HEMOGLOBIN 35.7 pg (28.0-32.0); MEAN CORPUSCULAR VOLUME 104.4 fL (80.0-94.0); MEAN PLATELET VOLUME 9.7 fl (7.4-10.4); RED BLOOD CELL COUNT 2.55 mill/uL (4.7-6.1)
[2020-07-12] MEDS: INSULIN LISPRO 100 UNITS/ML SUBCUT SCH ×4 (06:00→18:12)
[2020-07-12 06:15] LABS: CHLORIDE 100 mEq/L (98-107)
[2020-07-12] MEDS: BLOOD SUGAR DIAGNOSTIC STRIP TEST SCH ×4 (06:29→17:27)
[2020-07-12 07:36] LABS: PLATELET 40 x1000/uL (130-400)
[2020-07-12] MEDS: LACTULOSE 20G/30ML UDC PO SCH (08:43)
[2020-07-12] MEDS: LEVETIRACETAM 500MG PREMIX 100 ML IV SCH (08:44)
[2020-07-12] MEDS: FOLIC ACID 1MG TABLET PO SCH (08:44)
[2020-07-12] MEDS: THIAMINE HCL 100MG TABLET PO SCH (08:44)
[2020-07-12] MEDS: RIFAXIMIN 550 MG TABLET PO SCH (08:44)
[2020-07-12] MEDS: MULTIVITAMINS,THER W-MINERALS TABLET PO SCH (08:44)
[2020-07-12] MEDS: FUROSEMIDE 40MG/4ML VIAL IVP SCH (08:44)
[2020-07-12] MEDS: OMEPRAZOLE 20MG CAPSULE EXTENDED RELEASE PO SCH (08:47)
[2020-07-12] MEDS ORDERED: POTASSIUM CHLORIDE 20MEQ TABLET SR PO SCH (10:15)
[2020-07-12 14:46] LABS: PLATELET ESTIMATE MARKEDLY DECREASED
== END 2020-07-12 20:46 | DRG 720 ==
LOC: ER 06:21 → 5EST 09:31 → EDBEDREQ 09:35 → ENRESERV 10:25 → MICUSO 15:47 → CVICU 06-23 14:36 → 5EST 07-04 12:25
PROVIDERS: ADMIT Internal Medicine; ATTEND Internal Medicine
PROC: 0BH17EZ Insertion of Endotracheal Airway into Trachea, Via Natural or Artificial Opening (ICD-10-PCS; 2020-06-21)
PROC: 5A1955Z Respiratory Ventilation, Greater than 96 Consecutive Hours (ICD-10-PCS; 2020-06-21)
PROC: 06HY33Z Insertion of Infusion Device into Lower Vein, Percutaneous Approach (ICD-10-PCS; principal; 2020-06-23)
PROC: B54BZZA Ultrasonography of Right Lower Extremity Veins, Guidance (ICD-10-PCS; 2020-06-23)
PROC: 02HV33Z Insertion of Infusion Device into Superior Vena Cava, Percutaneous Approach (ICD-10-PCS; 2020-06-26)
PROC: B518ZZA Fluoroscopy of Superior Vena Cava, Guidance (ICD-10-PCS; 2020-06-26)
PROC: B548ZZA Ultrasonography of Superior Vena Cava, Guidance (ICD-10-PCS; 2020-06-26)
PROC: 0DB78ZX Excision of Stomach, Pylorus, Via Natural or Artificial Opening Endoscopic, Diagnostic (ICD-10-PCS; 2020-06-28)
PROC: 30233M1 Transfusion of Nonautologous Plasma Cryoprecipitate into Peripheral Vein, Percutaneous Approach (ICD-10-PCS; 2020-06-28)
PROC: 30233R1 Transfusion of Nonautologous Platelets into Peripheral Vein, Percutaneous Approach (ICD-10-PCS; 2020-06-30)
DX: A41.89 Other specified sepsis (principal); G40.901 Epilepsy, unspecified, not intractable, with status epilepticus; J69.0 Pneumonitis due to inhalation of food and vomit; J96.00 Acute respiratory failure, unspecified whether with hypoxia or hypercapnia; U07.1 COVID-19; I10 Essential (primary) hypertension; K70.30 Alcoholic cirrhosis of liver without ascites; E87.1 Hypo-osmolality and hyponatremia; D68.9 Coagulation defect, unspecified; D61.818 Other pancytopenia; D53.9 Nutritional anemia, unspecified; F10.10 Alcohol abuse, uncomplicated; Y90.9 Presence of alcohol in blood, level not specified; K72.90 Hepatic failure, unspecified without coma; B19.20 Unspecified viral hepatitis C without hepatic coma; E43 Unspecified severe protein-calorie malnutrition; N17.0 Acute kidney failure with tubular necrosis; K31.89 Other diseases of stomach and duodenum; K76.6 Portal hypertension; E11.65 Type 2 diabetes mellitus with hyperglycemia; E87.0 Hyperosmolality and hypernatremia; E87.3 Alkalosis; E87.6 Hypokalemia; K59.00 Constipation, unspecified; K70.31 Alcoholic cirrhosis of liver with ascites; K29.71 Gastritis, unspecified, with bleeding; Z88.8 Allergy status to other drugs, medicaments and biological substances; Z79.899 Other long term (current) drug therapy; Z79.84 Long term (current) use of oral hypoglycemic drugs; Z78.1 Physical restraint status; Z91.19 Patient's noncompliance with other medical treatment and regimen; Z68.35 Body mass index [BMI] 35.0-35.9, adult
CPT/HCPCS: 36415; 36600; 70551; 71045; 74018; 76700; 76770; 76937; 80048; 80053; 80076; 80156; 80165; 80184; 80185; 80320; 81003; 82140; 82248; 82270; 82375; 82550; 82805; 82962; 83036; 83735; 83880; 84100; 84145; 84478; 85014; 85018; 85025; 85384; 86705; 86709; 86803; 86850; 86870; 86900; 86927; 87340; 87426; 88305; 88313; 92610; 93306; 93970; 94002; 94003; 94640; 96365; 97110; 97116; 97162; 97166; 97530; 99291; A6261; C1725; C9113; J0330; J0461; J0696; J1100; J1200; J1815; J1940; J1953; J2060; J2250; J2270; J2354; J2704; J2765; J3010; J3430; J3475; J3480; J3490; J7030; J7040; J7050; J7060; J7070; P9017; P9034; P9047; U0003; A4315; G0480

== ENCOUNTER 2020-07-17 11:31 | Inpatient (IN) | payer OTHER ==
[~2020-07-17] VITALS: Ht 172.7 cm; Wt 134.3 kg
[2020-07-17] MEDS ORDERED: SODIUM CHLORIDE 0.9% 1,000 ML IV SCH (12:45)
[2020-07-17] MEDS ORDERED: ALBUMIN HUMAN 25GM/500ML (5%) IV SCH (13:00)
[2020-07-17 15:15] LABS: MEAN CORPUSCULAR HEMOGLOBIN 36.3 pg (28.0-32.0); MEAN CORPUSCULAR VOLUME 104.5 fL (80.0-94.0); MEAN PLATELET VOLUME 10.7 fl (7.4-10.4); RED BLOOD CELL COUNT 1.21 mill/uL (4.7-6.1); RED CELL DISTRIBUTION WIDTH 18.9 % (11.6-14.6)
[2020-07-17 15:29] LABS: INR 2.4; PROTHROMBIN TIME 24.3 sec (9.6-11.0)
[2020-07-17 15:30] LABS: HEMATOCRIT. 12.6 % (42.0-52.0); HEMOGLOBIN. 4.4 g/dL (14.0-18.0); PLATELET 44 x1000/uL (130-400)
[2020-07-17 15:35] LABS: PARTIAL THROMBOPLASTIN TIME 80.3 sec (23.4-31.0)
[2020-07-17 15:38] LABS: PHOSPHORUS 4.2 mg/dL (2.5-4.9)
[2020-07-17 17:26] LABS: NUCLEATED RED BLOOD CELLS 2 /100 WBC
[2020-07-17 17:27] LABS: PLATELET ESTIMATE MARKEDLY DECREASED
[2020-07-17] MEDS ORDERED: AZITHROMYCIN 500 MG in DEXT 5% WATER 250 ML IV SCH (17:45)
[2020-07-17] MEDS ORDERED: CEFTRIAXONE 1 G PREMIX 50 ML IV ONE (17:45)
[2020-07-18] VITALS (123 sets, daily range): BP systolic 0–145; BP diastolic 0–118
[2020-07-18] MEDS: NOREPINEPHRINE 8 MG in DEXT 5% WATER 242 ML IV PRN ×3 (02:39→11:42)
[2020-07-18 03:06] LABS: MEAN CORPUSCULAR HEMOGLOBIN 34.3 pg (28.0-32.0); MEAN CORPUSCULAR VOLUME 99.2 fL (80.0-94.0); MEAN PLATELET VOLUME 8.3 fl (7.4-10.4); PLATELET 82 x1000/uL (130-400); RED BLOOD CELL COUNT 1.35 mill/uL (4.7-6.1); RED CELL DISTRIBUTION WIDTH 23.2 % (11.6-14.6)
[2020-07-18 03:15] LABS: HEMATOCRIT. 13.4 % (42.0-52.0); HEMOGLOBIN. 4.6 g/dL (14.0-18.0)
[2020-07-18 03:16] LABS: INR 2.9; PROTHROMBIN TIME 28.2 sec (9.6-11.0)
[2020-07-18 03:20] LABS: PHOSPHORUS 6.2 mg/dL (2.5-4.9)
[2020-07-18] MEDS ORDERED: MAGNESIUM 4 G PREMIX 100 ML IV SCH (08:00)
[2020-07-18] MEDS ORDERED: LIDOCAINE HCL 1% 20ML VIAL (Pyxis) INJ ONE (08:56)
[2020-07-18 09:25] LABS: NUCLEATED RED BLOOD CELLS 1 /100 WBC; PLATELET ESTIMATE DECREASED
[2020-07-18 09:50] LABS: BG BASE EXCESS -11.6 mmol/L (-2.0-2.0); BG CARBOXYHEMOGLOBIN 0.6 % (0.5-1.5); BG DEOXYHEMOGLOBIN 2.7 % (0.0-5.0); BG FRACTION INSPIRED OXYGEN 21; BG HCO3 ACT 13.6 mmol/L (22.0-26.0); BG METHEMOGLOBIN 0.3 % (0.0-1.5); BG OXYGEN SATURATION 97.3 % (92.0-98.5); BG OXYHEMOGLOBIN 96.4 % (94.0-97.0); BG PCO2 27.9 mmHg (35.0-45.0); BG PH 7.306 (7.350-7.450); BG PO2 105.4 mmHg (75.0-100.0); BG SAMPLE SITE LEFT RADIAL; BG TOTAL HEMOGLOBIN 6.9 g/dL (12.0-18.0); BG VENT MODE ROOM AIR
[2020-07-18] MEDS: VASOPRESSIN 20 UNIT in SODIUM CHLORIDE 0.9% 99 ML IV PRN ×2 (11:43→18:51)
[2020-07-18 11:44] LABS: MEAN CORPUSCULAR VOLUME 100.1 fL (80.0-94.0); PLATELET 76 x1000/uL (130-400); RED CELL DISTRIBUTION WIDTH 17.5 % (11.6-14.6)
[2020-07-18 11:54] LABS: HEMOGLOBIN 6.1 g/dL (14.0-18.0)
[2020-07-18] MEDS ORDERED: PHYTONADIONE 10MG/ML AMP SUBCUT NR ×2 (12:00→13:15)
[2020-07-18] MEDS ORDERED: FUROSEMIDE 40MG/4ML VIAL IVP SCH ×2 (12:00→22:00)
[2020-07-18] MEDS ORDERED: ALBUMIN HUMAN 25GM/100ML (25%) IV SCH ×2 (12:00→22:00)
[2020-07-18] MEDS: NOREPINEPHRINE 32 MG in DEXT 5% WATER 218 ML IV PRN ×3 (13:12→22:52)
[2020-07-18] MEDS ORDERED: LACTULOSE 20G/30ML UDC PO PRN (13:15)
[2020-07-18 13:29] LABS: BG BASE EXCESS -18.3 mmol/L (-2.0-2.0); BG CARBOXYHEMOGLOBIN 0.3 % (0.5-1.5); BG DEOXYHEMOGLOBIN 6.4 % (0.0-5.0); BG METHEMOGLOBIN 0.5 % (0.0-1.5); BG OXYGEN SATURATION 93.5 % (92.0-98.5); BG OXYHEMOGLOBIN 92.8 % (94.0-97.0); BG PCO2 45.3 mmHg (35.0-45.0); BG PH 7.003 (7.350-7.450); BG PO2 100.2 mmHg (75.0-100.0); BG SAMPLE SITE LEFT RADIAL; BG TOTAL HEMOGLOBIN 4.9 g/dL (12.0-18.0); BG VENT MODE MASK - NRB
[2020-07-18] MEDS ORDERED: SODIUM BICARBONATE 8.4% 1 MEQ/ML 50ML SYR IV NR ×3 (13:45→18:45)
[2020-07-18] MEDS ORDERED: PIPERACILLIN/TAZOBACTAM 3.375 G/VIAL IV SCH (14:00)
[2020-07-18 14:36] LABS: TOTAL IRON BINDING CAPACITY 80 ug/dL (250-450)
[2020-07-18] MEDS: LEVETIRACETAM 500MG PREMIX 100 ML IV SCH (15:00)
[2020-07-18 15:08] LABS: BG HCO3 ACT 8.4 mmol/L (22.0-26.0); BG PH 6.938 (7.350-7.450); BG SAMPLE SITE LEFT RADIAL; BG TOTAL HEMOGLOBIN < 4.5 g/dL (12.0-18.0); BG VENT MODE VENT - AC
[2020-07-18] MEDS: PHENYLEPHRINE 100 MG in DEXT 5% WATER 240 ML IV PRN ×2 (15:10→19:44)
[2020-07-18] MEDS ORDERED: VANCOMYCIN 1500MG in DEXTROSE 5% WATER 250ML IV NR (16:00)
[2020-07-18] MEDS: PIPERACILLIN/TAZOBACTAM 3.375 G in DEXT 5% WATER 100 ML IV SCH (16:00)
[2020-07-18] MEDS: DOPAMINE 400MG/250ML PREMIX 250 ML IV PRN ×3 (16:00→23:18)
[2020-07-18 16:51] LABS: FOLIC ACID (FOLATE) SERUM > 20.00 ng/mL (>5.38)
[2020-07-18 16:54] LABS: FERRITIN 1247 ng/mL (22-322)
[2020-07-18 17:01] LABS: VITAMIN B12 SERUM > 2000.0 pg/mL (211-911)
[2020-07-18] MEDS ORDERED: PROPOFOL 10MG/ML 100ML 100 ML IV PRN (17:45)
[2020-07-18 18:10] LABS: BG HCO3 ACT 9.5 mmol/L (22.0-26.0); BG PCO2 68.5 mmHg (35.0-45.0); BG PH 6.759 (7.350-7.450); BG PO2 37.6 mmHg (75.0-100.0); BG SAMPLE SITE LEFT RADIAL; BG TOTAL HEMOGLOBIN < 4.5 g/dL (12.0-18.0); BG VENT MODE VENT - AC
[2020-07-18 18:52] LABS: BG BASE EXCESS -24.9 mmol/L (-2.0-2.0); BG CARBOXYHEMOGLOBIN 0.3 % (0.5-1.5); BG FRACTION INSPIRED OXYGEN 100; BG HCO3 ACT 7.8 mmol/L (22.0-26.0); BG METHEMOGLOBIN 0.9 % (0.0-1.5); BG OXYGEN SATURATION 38.3 % (92.0-98.5); BG OXYHEMOGLOBIN 37.8 % (94.0-97.0); BG PCO2 61.2 mmHg (35.0-45.0); BG PH 6.725 (7.350-7.450); BG PO2 32.3 mmHg (75.0-100.0); BG SAMPLE SITE LEFT RADIAL; BG TOTAL HEMOGLOBIN 4.7 g/dL (12.0-18.0); BG TOTAL RESPIRATORY RATE 22 b/min; BG VENT MODE VENT - AC
[2020-07-18] MEDS ORDERED: EPINEPHRINE 10 MG in SODIUM CHLORIDE 0.9% 240 ML IV PRN (19:00)
[2020-07-18 20:08] LABS: MEAN CORPUSCULAR HEMOGLOBIN 31.2 pg (28.0-32.0); MEAN CORPUSCULAR VOLUME 100.4 fL (80.0-94.0); RED BLOOD CELL COUNT 1.92 mill/uL (4.7-6.1); RED CELL DISTRIBUTION WIDTH 17.2 % (11.6-14.6)
[2020-07-18 20:17] LABS: CHLORIDE 98 mEq/L (98-107)
[2020-07-18 20:36] LABS: HEMATOCRIT. 19.3 % (42.0-52.0)
[2020-07-18 20:37] LABS: PLATELET 48 x1000/uL (130-400)
[2020-07-18] MEDS ORDERED: RIFAXIMIN 200MG TABLET PO SCH (21:00)
[2020-07-18 21:11] LABS: NUCLEATED RED BLOOD CELLS 24 /100 WBC
[2020-07-18 21:12] LABS: PLATELET ESTIMATE MARKEDLY DECREASED
[2020-07-18] MEDS: EPINEPHRINE 20 MG in SODIUM CHLORIDE 0.9% 480 ML IV PRN ×2 (21:22→23:16)
[2020-07-18] MEDS ORDERED: DEXTROSE 50% WATER 50ML SYRINGE IV NR (22:00)
[2020-07-18] MEDS ORDERED: INSULIN REGULAR (HUMULIN R) 300UNITS/3ML VIAL IV NR (22:00)
[2020-07-18] MEDS ORDERED: DEXTROSE 50% WATER 50ML SYRINGE IV ONE (22:10)
[2020-07-18] MEDS ORDERED: SODIUM CHLORIDE 0.9% 500 ML IV NR (22:30)
[2020-07-18] MEDS ORDERED: CALCIUM CHLORIDE 2,000 MG in DEXT 5% WATER 90 ML IV NR (22:30)
[2020-07-18] MEDS ORDERED: SODIUM BICARBONATE 200 MEQ in DEXTROSE 5% WATER 1,000 ML IV SCH (22:30)
[2020-07-19] VITALS (33 sets, daily range): BP systolic 0–157; BP diastolic 0–106
[2020-07-19] MEDS: PIPERACILLIN/TAZOBACTAM 3.375 G in DEXT 5% WATER 100 ML IV SCH
[2020-07-19] MEDS: LEVETIRACETAM 500MG PREMIX 100 ML IV SCH
[2020-07-19] MEDS: PHENYLEPHRINE 100 MG in DEXT 5% WATER 240 ML IV PRN ×2 (01:17→06:35)
[2020-07-19] MEDS: VASOPRESSIN 20 UNIT in SODIUM CHLORIDE 0.9% 99 ML IV PRN (01:33)
[2020-07-19] MEDS: EPINEPHRINE 20 MG in SODIUM CHLORIDE 0.9% 480 ML IV PRN ×3 (01:36→07:28)
[2020-07-19] MEDS: DOPAMINE 400MG/250ML PREMIX 250 ML IV PRN ×2 (02:55→06:04)
[2020-07-19] MEDS: NOREPINEPHRINE 32 MG in DEXT 5% WATER 218 ML IV PRN (03:39)
[2020-07-19 05:29] LABS: MEAN CORPUSCULAR HEMOGLOBIN 31.7 pg (28.0-32.0); MEAN CORPUSCULAR VOLUME 110.1 fL (80.0-94.0); MEAN PLATELET VOLUME 9.5 fl (7.4-10.4); PLATELET 74 x1000/uL (130-400); RED BLOOD CELL COUNT 1.38 mill/uL (4.7-6.1); RED CELL DISTRIBUTION WIDTH 16.8 % (11.6-14.6)
[2020-07-19 05:54] LABS: CHLORIDE 96 mEq/L (98-107)
[2020-07-19 06:02] LABS: CREATINE KINASE MB FRACTION 75.5 ng/mL (0.5-3.6)
[2020-07-19 06:11] LABS: HEMATOCRIT. 15.2 % (42.0-52.0); HEMOGLOBIN. 4.4 g/dL (14.0-18.0)
[2020-07-19 06:23] LABS: CREATINE KINASE 2010 IU/L (39-308)
[2020-07-19] MEDS ORDERED: SODIUM BICARBONATE 8.4% MEQ/ML 50ML VIAL IV ONE ×2 (07:59)
[2020-07-19] MEDS ORDERED: ATROPINE SULFATE 1MG/10ML SYR ONE (07:59)
[2020-07-19] MEDS ORDERED: CALCIUM CHLORIDE 1GM/10ML SYR IV ONE (07:59)
[2020-07-19] MEDS ORDERED: EPINEPHRINE 0.1MG/ML (1:10,000) 10ML SYR ONE (07:59)
[2020-07-19] MEDS ORDERED: PHYTONADIONE 10MG/ML AMP SUBCUT NR (08:00)
[2020-07-19] MEDS ORDERED: ATROPINE SULFATE 0.1MG/ML 10ML DISP.SYRIN ONE (08:13)
[2020-07-19] MEDS ORDERED: SODIUM BICARBONATE 8.4% 1 MEQ/ML 50ML SYR IV ONE (08:16)
[2020-07-19 08:55] LABS: NUCLEATED RED BLOOD CELLS 21 /100 WBC; PLATELET ESTIMATE DECREASED
[2020-07-19] MEDS ORDERED: PANTOPRAZOLE SODIUM 40 MG/VIAL IV SCH (09:00)
[2020-07-19] MEDS ORDERED: VANCOMYCIN 1 G PREMIX 200 ML IV SCH (11:00)
== END 2020-07-19 12:47 | DRG 253 ==
LOC: ER 11:31 → MICUNO 17:50 → EDBEDREQ 18:10 → EDBEDREQSVC 18:10 → EDBEDREQTM 18:10 → ENRESERV 07-18 00:20
PROVIDERS: ADMIT Internal Medicine; ATTEND Internal Medicine
PROC: 30233N1 Transfusion of Nonautologous Red Blood Cells into Peripheral Vein, Percutaneous Approach (ICD-10-PCS; 2020-07-17)
PROC: 02HV33Z Insertion of Infusion Device into Superior Vena Cava, Percutaneous Approach (ICD-10-PCS; 2020-07-18)
PROC: B548ZZA Ultrasonography of Superior Vena Cava, Guidance (ICD-10-PCS; 2020-07-18)
PROC: 30233M1 Transfusion of Nonautologous Plasma Cryoprecipitate into Peripheral Vein, Percutaneous Approach (ICD-10-PCS; 2020-07-18)
PROC: 0BH17EZ Insertion of Endotracheal Airway into Trachea, Via Natural or Artificial Opening (ICD-10-PCS; 2020-07-18)
PROC: 5A1935Z Respiratory Ventilation, Less than 24 Consecutive Hours (ICD-10-PCS; 2020-07-18)
PROC: 5A12012 Performance of Cardiac Output, Single, Manual (ICD-10-PCS; principal; 2020-07-19)
PROC: 30233R1 Transfusion of Nonautologous Platelets into Peripheral Vein, Percutaneous Approach (ICD-10-PCS; 2020-07-19)
DX: K66.1 Hemoperitoneum (principal); J96.01 Acute respiratory failure with hypoxia; N17.9 Acute kidney failure, unspecified; G92 Toxic encephalopathy; B19.20 Unspecified viral hepatitis C without hepatic coma; D53.9 Nutritional anemia, unspecified; D61.818 Other pancytopenia; K85.90 Acute pancreatitis without necrosis or infection, unspecified; D68.9 Coagulation defect, unspecified; D69.59 Other secondary thrombocytopenia; D72.825 Bandemia; E43 Unspecified severe protein-calorie malnutrition; E83.39 Other disorders of phosphorus metabolism; E87.0 Hyperosmolality and hypernatremia; E87.1 Hypo-osmolality and hyponatremia; E87.2 Acidosis; E87.6 Hypokalemia; E87.70 Fluid overload, unspecified; F17.200 Nicotine dependence, unspecified, uncomplicated; G40.909 Epilepsy, unspecified, not intractable, without status epilepticus; I12.9 Hypertensive chronic kidney disease with stage 1 through stage 4 chronic kidney disease, or unspecified chronic kidney disease; I27.20 Pulmonary hypertension, unspecified; J90 Pleural effusion, not elsewhere classified; K31.89 Other diseases of stomach and duodenum; K72.90 Hepatic failure, unspecified without coma; K86.1 Other chronic pancreatitis; N18.9 Chronic kidney disease, unspecified; Z86.16 Personal history of COVID-19; M54.5 Low back pain; K70.31 Alcoholic cirrhosis of liver with ascites; Z20.822 Contact with and (suspected) exposure to COVID-19; W18.39XA Other fall on same level, initial encounter; F10.10 Alcohol abuse, uncomplicated; Y90.9 Presence of alcohol in blood, level not specified; Y92.129 Unspecified place in nursing home as the place of occurrence of the external cause; Z87.01 Personal history of pneumonia (recurrent); Z88.8 Allergy status to other drugs, medicaments and biological substances; Z79.899 Other long term (current) drug therapy; Z79.84 Long term (current) use of oral hypoglycemic drugs; Z68.42 Body mass index [BMI] 45.0-49.9, adult; Y93.89 Activity, other specified; Y99.8 Other external cause status; R57.8 Other shock; T68.XXXA Hypothermia, initial encounter
CPT/HCPCS: 36415; 36600; 71045; 71250; 74176; 76937; 80048; 80053; 80069; 80076; 80202; 82140; 82248; 82375; 82550; 82553; 82607; 82728; 82746; 82805; 82962; 83540; 83550; 83605; 83735; 84100; 84478; 84484; 85025; 85027; 85044; 86850; 86870; 86900; 86920; 86927; 87426; 92950; 93005; 94002; 94003; 96365; 99285; C1725; C1769; J0456; J0461; J0696; J1265; J1815; J1940; J1953; J2370; J2543; J3370; J3430; J3475; J3490; J7040; J7050; J7060; J7070; P9016; P9017; P9021; P9034; P9041; P9047; A4315